=== PATIENT | male | born 1935 | race Caucasian/White ===

== ENCOUNTER 2021-01-04 09:20 | Inpatient (IN) | payer OTHER, MEDICARE, SELFPAY ==
[2021-01-04] VITALS (12 sets, daily range): BP systolic 110–144; BP diastolic 49–87; PULSE 72–105; RESP 16–25; TEMP 36.2–37; O2SAT 95–100; BMI 34.0
--- NOTE | ~2021-01-04 | XR_ITS ---
EXAMINATION: XR CHEST CLINICAL INFORMATION: AMS. Possible aspiration COMPARISON: Chest 07/05/2009 TECHNIQUE: Frontal view of the chest was obtained. FINDINGS: The lungs are are in moderate inspiration with no acute process seen. The heart size and pulmonary vascularity is normal. There is mild spondylosis dorsal spine. No lytic process seen. XR/XR chest 1V IMPRESSION: Lungs in moderate inspiration with no acute process seen. No major change compared to 07/05/2009
--- NOTE | ~2021-01-04 | MR_ITS ---
EXAMINATION: MR BRAIN WITHOUT AND WITH CONTRAST CLINICAL INFORMATION: New onset seizure. COMPARISON: CT head from 01/04/2021. TECHNIQUE: MRI of the brain was obtained using routine sequences without and following the administration of 10 mL of Gadavist intravenous contrast. FINDINGS: No focal restricted diffusion is demonstrated to suggest acute or subacute cerebral ischemia. No evidence of acute or chronic hemorrhagic products on heme-sensitive imaging. Basal ganglia mineralization. Scattered periventricular and deep white matter T2 FLAIR hyperintensities consistent with mild to moderate underlying microangiopathy. No additional parenchymal signal abnormalities. Proportional prominence of the ventricles and sulcal spaces without evidence of obstructive hydrocephalus. No abnormal mass effect. No midline shift. The hippocampi are symmetric in size, contour, and signal intensity. The temporal horns appear symmetric. Normal appearance of the pituitary gland. Normal positioning of the cerebellar tonsils. Normal arterial and venous vascular flow voids are present. No abnormal contrast enhancement. Normal, homogeneous marrow signal. Mild mucosal thickening of the paranasal sinuses. No signal abnormalities within the mastoids. MR/MR head/brain wo/w con IMPRESSION: 1. No acute intracranial abnormalities. No abnormal intracranial enhancement. 2. Mild to moderate underlying microangiopathy and generalized cerebral volume loss.
--- NOTE | ~2021-01-04 | CT_ITS ---
EXAMINATION: CT HEAD WITHOUT CONTRAST CLINICAL INFORMATION: AMS. COMPARISON: None TECHNIQUE: Contiguous axial imaging was performed from the skull base to vertex without intravenous administration of contrast. This CT examination was performed using dose optimization techniques as appropriate, variously including the following: *Automated exposure control *Adjustment of mA and/or kV according to patient size (this includes techniques or standardized protocols for targeted exams where dose is matched to indication/reason for exam; i.e. extremities or head) *Use of iterative reconstruction technique DLP: 821 mGy-cm FINDINGS: There is no evidence of acute intracranial hemorrhage or territorial infarction. No abnormal mass effect or midline shift is seen. Veronica to white matter differentiation is well preserved. No extra-axial fluid collections are identified. The lateral ventricles are slightly asymmetrical but enlarged. Mild prominence of cortical sulci seen. The osseous structures and soft tissues are normal. There is mild mucoperiosteal thickening involving bilateral ethmoid sinuses. Rest of the paranasal sinuses and mastoid air cells are unremarkable. CT/CT head/brain wo con IMPRESSION: No acute intracranial process seen. Age-related cerebral volume loss. Mild bilateral ethmoid sinus inflammatory changes noted Results were discussed with Dr. Julissa Castillo in ED at 9:53 AM
--- NOTE | ~2021-01-04 | US_ITS ---
EXAMINATION: US RETROPERITONEAL LIMITED (RENAL ONLY) CLINICAL INFORMATION: Urinary retention.. COMPARISON: None TECHNIQUE: Sonographic evaluation of the kidneys. FINDINGS: RIGHT KIDNEY: 11.6 x 6.1 x 6.1 cm (SAG x AP x TRV). The kidney is normal in size, contour, and echogenicity. Renal cortical thickness is normal. No calculi. No hydronephrosis. There are midpole simple renal cysts present. The largest measures 2.2 cm. The smaller adjacent cyst measures 1 cm. LEFT KIDNEY: 11.6 x 6 x 5.2 cm (SAG x AP x TRV). The kidney is normal in size, contour, and echogenicity. Renal cortical thickness is normal. No hydronephrosis. There is a lower pole 1 cm simple cyst. There is a midpole nonobstructing calculus measuring 0.3 cm. At the upper pole there is a hyperechoic lesion in the cortex measuring 0.9 x 0.7 x 1.1 cm. US/US renal BI IMPRESSION: No hydronephrosis. Small nonobstructing left renal calculus. Bilateral simple renal cysts. Hyperechoic lesion in the left kidney measuring up to 1.1 cm, likely an angiomyolipoma.
[2021-01-04] MEDS: LORazepam 2 MG/ML VIAL IVPUSH ×2 (09:25)
--- NOTE | 2021-01-04 09:50 | ECG_ITS ---
Test Reason : AMS Blood Pressure : / mmHG Vent. Rate : 083 BPM Atrial Rate : 060 BPM P-R Int : 000 ms QRS Dur : 086 ms QT Int : 390 ms P-R-T Axes : 000 -01 -02 degrees QTc Int : 458 ms Atrial fibrillation with premature ventricular or aberrantly conducted complexes Nonspecific ST abnormality Abnormal ECG When compared with ECG of 26-SEP-2002 09:29, Atrial fibrillation has replaced Sinus rhythm QT has lengthened Referred By: Julissa Lui Electronically Signed By:KARLENE PERAZA
--- NOTE | 2021-01-04 09:54 | PC.NURSE ---
pt brought immediately to ct scan upon ed arrival, medicated w total of 4mg iv ativan d/t combative behavior requiring multiple staff members to hold for safety. moved to room 4, placed on 2l nc d/t spo2 90% on ra s/p doctor of dental medicine. seen by provider. awaiting further orders.
[2021-01-04 10:16] LABS: MANUAL DIFF FLAG NO
[2021-01-04 10:22] LABS: Basophils Absolute Auto 0.1 X10*3/uL (0.0-0.2); Eosinophils Absolute Auto 0.9 X10*3/uL (0.0-0.4); Eosinophils Percent Auto 10.4 % (0-4); Hematocrit 37.8 % (42-52); Hemoglobin 12.7 g/dl (14.0-18.0); Imm Gran Abs Auto 0.03 X10*3/uL (0.00-0.03); Imm Gran Pct Auto 0.4 % (0.0-0.4); Lymphocytes Absolute Auto 1.6 X10*3/uL (1.2-4.9); Lymphocytes Percent Auto 19.5 % (20-40); Mean Corpuscular HGB Conc 33.6 g/dl (31.0-36.0); Mean Corpuscular Hemoglobin 32.1 pg (27.0-33.0); Mean Corpuscular Volume 95.5 fL (80-98); Mean Platelet Volume 9.6 fL (9.4-12.4); Monocytes Absolute Auto 0.4 X10*3/uL (0.1-1.2); Monocytes Percent Auto 5.1 % (2-11); Neutrophils Absolute Auto 5.3 X10*3/uL (2.0-8.3); Neutrophils Percent Auto 63.6 % (45-73); Platelet Count 180 X10*3/uL (160-400); Red Blood Count 3.96 X10*6/uL (4.60-5.80); White Blood Count 8.4 X10*3/uL (4.8-10.8)
[2021-01-04 10:23] LABS: INTERNATIONAL NORM RATIO 1.1 (0.9-1.1); Prothrombin Time 13.3 SEC (10.8-13.0)
[2021-01-04 10:36] LABS: Ethanol < 10 mg/dL; Lactic Acid 7.9 mmol/L (0.5-2.0)
[2021-01-04 10:37] LABS: Glucose Urine UA NEG (NEG); Leukocyte Esterase Urine 2+ (NEG); Nitrite Urine POS (NEG); Specific Gravity - Urine 1.025 (1.005-1.025); UACC Culture Trigger YES; Urine Blood 3+ (NEG); Urine Ketones NEG (NEG); Urine Protein 2+ MG/DL (NEG-TRACE)
[2021-01-04 10:40] LABS: Appearance Urine CLOUDY; Color Urine YELLOW
[2021-01-04 10:43] LABS: Alanine Aminotransferase 20 U/L (0-40); Albumin Level 3.8 g/dL (3.5-5.0); Alkaline Phosphatase 41 U/L (39-117); Anion Gap 20 (12-20); Aspartate Amino Transferase 25 U/L (5-37); Bilirubin Direct 0.3 mg/dL (0.0-0.5); Bilirubin Total 0.7 mg/dL (0.0-1.0); Blood Urea Nitrogen 14 mg/dL (9-16); Calcium 8.3 mg/dL (8.4-10.2); Carbon Dioxide 16 mmol/L (22-29); Chloride 103 mmol/L (96-108); Estimated Glomerular Filt Rate 56; Glucose Random 195 mg/dL (60-115); Potassium 4.6 mmol/L (3.3-5.1); Sodium 134 mmol/L (135-145); Total Protein 6.4 g/dL (6.5-8.0)
[2021-01-04 10:47] LABS: B Type Natriuretic Peptide 153 pg/mL (<100); Troponin-I High Sensitivity 5.3 ng/L (<3.5-35.0)
[2021-01-04 10:47] LABS: Bacteria Urine 1+ /LPF; WBC Urine TNTC /HPF (0-4)
[2021-01-04 10:56] LABS: Amphetamine Screen Urine Not Detected (Not Detect); Barbiturates, Urine Not Detected (Not Detect); Benzodiazepines Screen Urine Not Detected (Not Detect); Cannabinoid Screen Urine Not Detected (Not Detect); Cocaine Screen Urine Not Detected (Not Detect); Opiate Screen Urine Not Detected (Not Detect); Phencyclidine Screen Urine Not Detected (Not Detect)
--- NOTE | 2021-01-04 10:57 | ED.AMS ---
HPI - Altered Mental Status General Chief Complaint: Seizure Stated Complaint: UNRESPONSIVE, LAST KNOWN WELL 0800 Time Seen by Provider: 01/04/21 09:31 Source: EMS Mode of arrival: EMS Limitations: altered mental status History of Present Illness HPI narrative: Patient is brought to the emergency room by EMS. According to the patient's , around 8 a.m. they woke up, the patient was standing in front of his bed, looked very confused. The patient's was able to help him walk and have him sit on the couch. At that time, the patient received a phone call from his son, the patient was unable to speak on the phone, he was too confused to even hold the phone. The patient's states that the patient did not have any stroke-like symptoms, he seemed confused. Shortly after, while the patient was sitting the patient started having tonic clonic movements of all extremities and foaming at the mouth. EMS was called. On arrival, all of the patient's vitals were stable, patient was unresponsive. When patient arrived to the emergency room, patient was very combative, trying to punch and kick people, confused, unable to follow any commands. Related Data Allergies Allergy/AdvReac Type Severity Reaction Status Date / Time No Known Allergies Allergy Verified 01/04/21 09:31 Review of Systems Review of Systems: Yes Unobtainable due to mental condition PMFSH Past Medical History Medical History (Updated 01/04/21 @ 11:12 by Julissa Lui MD) Afib Hypertension Social History Social History Advance Directives: No Advance Directives Information Provided: No Physical Exam Vital Signs: Vital Signs: Last Vital Signs Temp 98.4 F 01/04/21 09:41 Pulse 87 01/04/21 11:13 Resp 25 H 01/04/21 11:13 BP 114/56 L 01/04/21 11:13 Pulse Ox 95 01/04/21 11:13 Body Mass Index 34.0 Appearance: Alert, very combative, confused, seems postictal Eyes: Pupils equal, round and reactive to light. ENT: Patient has bite staples to the inner part of the left cheek and bite staples to the tongue as well Neck: Normal inspection. Neck supple. No lymph nodes noted. No crepitus CVS: Normal heart rate and rhythm. Pulses normal. Normal S1 and S2 Respiratory: No respiratory distress. Breath sounds normal. No Wheezing. No rales Abdomen: Soft and nontender. No rigidity. No distention. : Patient was straight cath, urine looks cloudy. Patient was incontinent of urine on arrival Skin: Skin warm and dry. Normal skin color. Normal skin turgor. Extremities: Moving all extremities, trying to punch and kick staff Neuro: Patient very confused, likely postictal, cranial nerves 2-12 grossly intact Course Course Course Narrative: Patient needed as CT scan on arrival, therefore he was given 2 mg of Ativan, had no effect. Patient was given an additional 2 mg of IV Ativan. Patient was able to calm down and fell asleep, CT scan was done. Spoke with the patient's family, informed of the patient's current status. Patient likely had a seizure, patient does not have history of seizures. At this time, patient remains sleeping, vital stable Patient's lactic acid is 7.9, likely secondary to the seizure. Patient has no fever, no white blood cell count, sepsis is not suspected at this time. 11:10 urinalysis shows a positive UTI, patient already being hydrated, IV ceftriaxone ordered. Fluids were given based on ideal body weight 59 kg, sepsis not suspected I discussed the patient with Dr. Jeong, patient being admitted MDM - Altered Mental Status Lab Data Result diagrams: 01/04/21 10:11 01/04/21 10:11 Labs: Lab Results 01/04/21 01/04/21 01/04/21 Range/Units 10:11 10:11 10:11 WBC 8.4 (4.8-10.8) X10*3/uL RBC 3.96 L (4.60-5.80) X10*6/uL Hgb 12.7 L (14.0-18.0) g/dl Hct 37.8 L (42-52) % MCV 95.5 (80-98) fL MCH 32.1 (27.0-33.0) pg MCHC 33.6 (31.0-36.0) g/dl RDW 13.0 (11.0-16.0) % Plt Count 180 (160-400) X10*3/uL MPV 9.6 (9.4-12.4) fL Immature Gran % (Auto) 0.4 (0.0-0.4) % Neut % (Auto) 63.6 (45-73) % Lymph % (Auto) 19.5 L (20-40) % [place] % (Auto) 5.1 (2-11) % Eos % (Auto) 10.4 H (0-4) % Baso % (Auto) 1.0 (0-2) % Lymph # (Auto) 1.6 (1.2-4.9) X10*3/uL [place] # (Auto) 0.4 (0.1-1.2) X10*3/uL Eos # (Auto) 0.9 H (0.0-0.4) X10*3/uL Baso # (Auto) 0.1 (0.0-0.2) X10*3/uL Abs Immat Gran (auto) 0.03 (0.00-0.03) X10*3/uL Absolute Neuts (auto) 5.3 (2.0-8.3) X10*3/uL Absolute Nucleated RBC 0.000 (0.0-0.012) X10*3/uL Nucleated RBC % (auto) 0.0 (0.0-0.2) /100WBC PT 13.3 H (10.8-13.0) SEC INR 1.1 (0.9-1.1) Sodium 134 L (135-145) mmol/L Potassium 4.6 (3.3-5.1) mmol/L Chloride 103 (96-108) mmol/L Carbon Dioxide 16 L (22-29) mmol/L Anion Gap 20 (12-20) BUN 14 (9-16) mg/dL Creatinine 1.23 (0.5-1.4) mg/dL Estim Creat Clear Calc 46.0 Estimated GFR 56 Random Glucose 195 H (60-115) mg/dL Lactic Acid (0.5-2.0) mmol/L Calcium 8.3 L (8.4-10.2) mg/dL Total Bilirubin 0.7 (0.0-1.0) mg/dL Direct Bilirubin 0.3 (0.0-0.5) mg/dL AST 25 (5-37) U/L ALT 20 (0-40) U/L Alkaline Phosphatase 41 (39-117) U/L Troponin I High Sens (<3.5-35.0) ng/L B-Natriuretic Peptide (<100) pg/mL Total Protein 6.4 L (6.5-8.0) g/dL Albumin 3.8 (3.5-5.0) g/dL Urine Color Urine Appearance Urine pH (5.0-8.0) Ur Specific [place] (1.005-1.025) Urine Protein (NEG-TRACE) MG/DL Urine Glucose (UA) (NEG) MG/DL Urine Ketones (NEG) MG/DL Urine Blood (NEG) Urine Nitrite (NEG) Ur Leukocyte Esterase (NEG) Urine RBC (0) /HPF Urine WBC (0-4) /HPF Ur Squamous Epith Cells /LPF Urine Bacteria /LPF Urine Opiates Screen (Not Detect) Ur Barbiturates Screen (Not Detect) Ur Phencyclidine Scrn (Not Detect) Ur Amphetamines Screen (Not Detect) U Benzodiazepines Scrn (Not Detect) Urine Cocaine Screen (Not Detect) U Marijuana (THC) Screen (Not Detect) Ethyl Alcohol mg/dL 01/04/21 01/04/21 01/04/21 Range/Units 10:11 10:11 10:11 WBC (4.8-10.8) X10*3/uL RBC (4.60-5.80) X10*6/uL Hgb (14.0-18.0) g/dl Hct (42-52) % MCV (80-98) fL MCH (27.0-33.0) pg MCHC (31.0-36.0) g/dl RDW (11.0-16.0) % Plt Count (160-400) X10*3/uL MPV (9.4-12.4) fL Immature Gran % (Auto) (0.0-0.4) % Neut % (Auto) (45-73) % Lymph % (Auto) (20-40) % [place] % (Auto) (2-11) % Eos % (Auto) (0-4) % Baso % (Auto) (0-2) % Lymph # (Auto) (1.2-4.9) X10*3/uL [place] # (Auto) (0.1-1.2) X10*3/uL Eos # (Auto) (0.0-0.4) X10*3/uL Baso # (Auto) (0.0-0.2) X10*3/uL Abs Immat Gran (auto) (0.00-0.03) X10*3/uL Absolute Neuts (auto) (2.0-8.3) X10*3/uL Absolute Nucleated RBC (0.0-0.012) X10*3/uL Nucleated RBC % (auto) (0.0-0.2) /100WBC PT (10.8-13.0) SEC INR (0.9-1.1) Sodium (135-145) mmol/L Potassium (3.3-5.1) mmol/L Chloride (96-108) mmol/L Carbon Dioxide (22-29) mmol/L Anion Gap (12-20) BUN (9-16) mg/dL Creatinine (0.5-1.4) mg/dL Estim Creat Clear Calc Estimated GFR Random Glucose (60-115) mg/dL Lactic Acid 7.9 H* (0.5-2.0) mmol/L Calcium (8.4-10.2) mg/dL Total Bilirubin (0.0-1.0) mg/dL Direct Bilirubin (0.0-0.5) mg/dL AST (5-37) U/L ALT (0-40) U/L Alkaline Phosphatase (39-117) U/L Troponin I High Sens 5.3 (<3.5-35.0) ng/L B-Natriuretic Peptide 153 H (<100) pg/mL Total Protein (6.5-8.0) g/dL Albumin (3.5-5.0) g/dL Urine Color Urine Appearance Urine pH (5.0-8.0) Ur Specific [place] (1.005-1.025) Urine Protein (NEG-TRACE) MG/DL Urine Glucose (UA) (NEG) MG/DL Urine Ketones (NEG) MG/DL Urine Blood (NEG) Urine Nitrite (NEG) Ur Leukocyte Esterase (NEG) Urine RBC (0) /HPF Urine WBC (0-4) /HPF Ur Squamous Epith Cells /LPF Urine Bacteria /LPF Urine Opiates Screen (Not Detect) Ur Barbiturates Screen (Not Detect) Ur Phencyclidine Scrn (Not Detect) Ur Amphetamines Screen (Not Detect) U Benzodiazepines Scrn (Not Detect) Urine Cocaine Screen (Not Detect) U Marijuana (THC) Screen (Not Detect) Ethyl Alcohol < 10 mg/dL 01/04/21 01/04/21 Range/Units 10:11 10:18 WBC (4.8-10.8) X10*3/uL RBC (4.60-5.80) X10*6/uL Hgb (14.0-18.0) g/dl Hct (42-52) % MCV (80-98) fL MCH (27.0-33.0) pg MCHC (31.0-36.0) g/dl RDW (11.0-16.0) % Plt Count (160-400) X10*3/uL MPV (9.4-12.4) fL Immature Gran % (Auto) (0.0-0.4) % Neut % (Auto) (45-73) % Lymph % (Auto) (20-40) % [place] % (Auto) (2-11) % Eos % (Auto) (0-4) % Baso % (Auto) (0-2) % Lymph # (Auto) (1.2-4.9) X10*3/uL [place] # (Auto) (0.1-1.2) X10*3/uL Eos # (Auto) (0.0-0.4) X10*3/uL Baso # (Auto) (0.0-0.2) X10*3/uL Abs Immat Gran (auto) (0.00-0.03) X10*3/uL Absolute Neuts (auto) (2.0-8.3) X10*3/uL Absolute Nucleated RBC (0.0-0.012) X10*3/uL Nucleated RBC % (auto) (0.0-0.2) /100WBC PT (10.8-13.0) SEC INR (0.9-1.1) Sodium (135-145) mmol/L Potassium (3.3-5.1) mmol/L Chloride (96-108) mmol/L Carbon Dioxide (22-29) mmol/L Anion Gap (12-20) BUN (9-16) mg/dL Creatinine (0.5-1.4) mg/dL Estim Creat Clear Calc Estimated GFR Random Glucose (60-115) mg/dL Lactic Acid (0.5-2.0) mmol/L Calcium (8.4-10.2) mg/dL Total Bilirubin (0.0-1.0) mg/dL Direct Bilirubin (0.0-0.5) mg/dL AST (5-37) U/L ALT (0-40) U/L Alkaline Phosphatase (39-117) U/L Troponin I High Sens (<3.5-35.0) ng/L B-Natriuretic Peptide (<100) pg/mL Total Protein (6.5-8.0) g/dL Albumin (3.5-5.0) g/dL Urine Color YELLOW Urine Appearance CLOUDY Urine pH 6.0 (5.0-8.0) Ur Specific [place] 1.025 (1.005-1.025) Urine Protein 2+ H (NEG-TRACE) MG/DL Urine Glucose (UA) NEG (NEG) MG/DL Urine Ketones NEG (NEG) MG/DL Urine Blood 3+ H (NEG) Urine Nitrite POS H (NEG) Ur Leukocyte Esterase 2+ H (NEG) Urine RBC 15-29 H (0) /HPF Urine WBC TNTC H (0-4) /HPF Ur Squamous Epith Cells NONE /LPF Urine Bacteria 1+ /LPF Urine Opiates Screen Not Detected (Not Detect) Ur Barbiturates Screen Not Detected (Not Detect) Ur Phencyclidine Scrn Not Detected (Not Detect) Ur Amphetamines Screen Not Detected (Not Detect) U Benzodiazepines Scrn Not Detected (Not Detect) Urine Cocaine Screen Not Detected (Not Detect) U Marijuana (THC) Screen Not Detected (Not Detect) Ethyl Alcohol mg/dL ECG Data ECG #1: Attestation: I personally reviewed and interpreted this ECG as follows: (Atrial fibrillation, heart rate 83, nonspecific T-wave inversions in lead III, nonspecific ST abnormality in leads V2 through V6, poor quality EKG) Discharge Plan Discharge Clinical Impression: New onset seizure, Acute UTI Patient Disposition: Admitted As Inpatient
[2021-01-04] MEDS: cefTRIAXone sodium 1 GM in 0.9 % Sodium Chloride 50 ML IV (11:16)
[2021-01-04] MEDS: 0.9 % Sodium Chloride 1,000 ML 999 ML IVCONT ×2 (11:17→12:00)
[2021-01-04 12:14] LABS: Reflex Lactate? Lactic Acid Added
[2021-01-04 12:35] LABS: COVID-19 Test Negative (Negative)
--- NOTE | 2021-01-04 12:48 | PC.NURSE ---
family in waiting room updated, will return w pt cpap machine and personal belongings. repeat lactic drawn and sent. seen by hospitalist. awaiting bed assignment.
[2021-01-04 13:21] LABS: ~Lactic Acid-LAB USE ONLY 2.7 mmol/L (0.5-2.0)
--- NOTE | 2021-01-04 13:59 | P.HPHOSP_ITS ---
History of Present Illness Date of Service: 01/04/21 Chief Complaint: seizure confusion H/o taken from ER physician and patient as patient very sleep and lethargic Per patient patient was in his usual health till yesterday evening, patient woke up this morning around 08:00am and was very confused and standing was staring at her , patient's tried to talk to him but was not responding, made him sit on the chair patient started having tonic colonic seizure, per patient was moving all his extremities and noticed frothing from mouth, called 911, patient's seizure activity stays for few minutes, patient was brought to emergency room, patient was very confused and agitated after the seizure, patient received total 4 mg of Ativanin er , no more seizure activity was noticed in the ER, CT head shows no acute abnormality, labs shows elevated lactic acidosis and UA was positive, patient received 1 dose of Rocephin and admission was requested denies any fever chills or sick contact, denies any history of seizure in the past Of note patient has urinary retention and does straight cath once a week Review of Systems Review of Systems: Yes Unobtainable due to mental status Neurologic: Reports confusion Psychiatric: Psychiatric: Reports confusion [facility] Medical History Afib Hypertension Family History (Updated 01/04/21 @ 15:29 by Michael Jeong MD) Other HTN (hypertension) Surgical History (Updated 01/04/21 @ 15:31 by Michael Jeong MD) H/O hand surgery Social History Advance Directives: No Advance Directives Information Provided: No Meds Allergies Allergy/AdvReac Type Severity Reaction Status Date / Time No Known Allergies Allergy Verified 01/04/21 09:31 Active Medications: Current Medications Generic Name Dose Route Start Last Admin Trade Name Freq PRN Reason Stop Dose Admin Pharmacy Consult 1 each 01/04/21 11:09 Consult Rx Perform Med Rec MISCELLANE ONCE PRN Consult order Home Medications Medication Instructions Recorded Confirmed Last Taken Type Daily Vitamin 1 cap PO DAILY 01/04/21 01/04/21 01/03/21 History Move [facility] Joint Health 1 tab PO DAILY 01/04/21 01/04/21 01/03/21 History Zyrtec 5 mg PO DAILY 01/04/21 01/04/21 01/03/21 History allopurinol [Zyloprim] 300 mg PO DAILY 01/04/21 01/04/21 01/03/21 History apixaban [Eliquis] 5 mg PO BID 01/04/21 01/04/21 01/03/21 History ascorbic acid (vitamin C) [Vitamin 1 cap PO DAILY 01/04/21 01/04/21 01/03/21 History C] carboxymethylcellulose-glycern 1 drp OPHTHALMIC (EYE) QID 01/04/21 01/04/21 01/03/21 History [Lubricating Drops] flaxseed 1,000 mg PO DAILY 01/04/21 01/04/21 01/03/21 History furosemide [Lasix] 20 mg PO DAILY 01/04/21 01/04/21 01/03/21 History metoprolol succinate [Toprol XL] 100 mg PO DAILY 01/04/21 01/04/21 01/03/21 History valsartan 160 mg PO BID 01/04/21 01/04/21 01/03/21 History Physical Exam Vital Signs and Narrative: Vital Signs: Last Vital Signs Temp 98.4 F 01/04/21 09:41 Pulse 84 01/04/21 13:03 Resp 20 01/04/21 13:03 BP 120/55 L 01/04/21 13:03 Pulse Ox 100 01/04/21 13:03 Body Mass Index 34.0 Const: General: confusion and lethargic Orientation/consciousness: confusion and lethargic Chest: Chest palpation & inspection: normal inspection of the chest Resp: Effort & Inspection: normal respiratory effort Cardio: Jugular venous distension: no JVD Heart sounds: S1 normal heart sound present and S2 normal heart sound present GI: Inspection: Yes normal to inspection Palpation (GI): nontender Skin: General skin exam: no rashes or lesions noted Neuro: General: confusion and other (lethargic) Motor exam (neuro): 5/5 motor strength present throughout Results Labs CBC and Chem 7: 01/04/21 10:11 01/04/21 10:11 Labs: Laboratory Results - last 24 hr 01/04/21 01/04/21 01/04/21 10:11 10:11 10:11 MCV 95.5 MCH 32.1 MCHC 33.6 RDW 13.0 Plt Count 180 MPV 9.6 Immature Gran % (Auto) 0.4 Neut % (Auto) 63.6 Lymph % (Auto) 19.5 L [place] % (Auto) 5.1 Eos % (Auto) 10.4 H Baso % (Auto) 1.0 Lymph # (Auto) 1.6 [place] # (Auto) 0.4 Eos # (Auto) 0.9 H Baso # (Auto) 0.1 Abs Immat Gran (auto) 0.03 Absolute Neuts (auto) 5.3 Absolute Nucleated RBC 0.000 Nucleated RBC % (auto) 0.0 PT 13.3 H INR 1.1 Anion Gap 20 Estim Creat Clear Calc 46.0 Estimated GFR 56 Random Glucose 195 H Lactic Acid Lactic Acid Fup @ 2Hr Calcium 8.3 L Total Bilirubin 0.7 Direct Bilirubin 0.3 AST 25 ALT 20 Alkaline Phosphatase 41 Troponin I High Sens B-Natriuretic Peptide Total Protein 6.4 L Albumin 3.8 Urine Color Urine Appearance Urine pH Ur Specific [place] Urine Protein Urine Glucose (UA) Urine Ketones Urine Blood Urine Nitrite Ur Leukocyte Esterase Urine RBC Urine WBC Ur Squamous Epith Cells Urine Bacteria Urine Opiates Screen Ur Barbiturates Screen Ur Phencyclidine Scrn Ur Amphetamines Screen U Benzodiazepines Scrn Urine Cocaine Screen U Marijuana (THC) Screen Ethyl Alcohol COVID-19 (MERARI) COVID-19 Clin Com 01/04/21 01/04/21 01/04/21 10:11 10:11 10:11 MCV MCH MCHC RDW Plt Count MPV Immature Gran % (Auto) Neut % (Auto) Lymph % (Auto) [place] % (Auto) Eos % (Auto) Baso % (Auto) Lymph # (Auto) [place] # (Auto) Eos # (Auto) Baso # (Auto) Abs Immat Gran (auto) Absolute Neuts (auto) Absolute Nucleated RBC Nucleated RBC % (auto) PT INR Anion Gap Estim Creat Clear Calc Estimated GFR Random Glucose Lactic Acid 7.9 H* Lactic Acid Fup @ 2Hr Calcium Total Bilirubin Direct Bilirubin AST ALT Alkaline Phosphatase Troponin I High Sens 5.3 B-Natriuretic Peptide 153 H Total Protein Albumin Urine Color Urine Appearance Urine pH Ur Specific [place] Urine Protein Urine Glucose (UA) Urine Ketones Urine Blood Urine Nitrite Ur Leukocyte Esterase Urine RBC Urine WBC Ur Squamous Epith Cells Urine Bacteria Urine Opiates Screen Ur Barbiturates Screen Ur Phencyclidine Scrn Ur Amphetamines Screen U Benzodiazepines Scrn Urine Cocaine Screen U Marijuana (THC) Screen Ethyl Alcohol < 10 COVID-19 ([facility]ARI) COVID-19 [employer] Com 01/04/21 01/04/21 01/04/21 10:11 10:18 12:07 MCV MCH MCHC RDW Plt Count MPV Immature Gran % (Auto) Neut % (Auto) Lymph % (Auto) [place] % (Auto) Eos % (Auto) Baso % (Auto) Lymph # (Auto) [place] # (Auto) Eos # (Auto) Baso # (Auto) Abs Immat Gran (auto) Absolute Neuts (auto) Absolute Nucleated RBC Nucleated RBC % (auto) PT INR Anion Gap Estim Creat Clear Calc Estimated GFR Random Glucose Lactic Acid Lactic Acid Fup @ 2Hr Calcium Total Bilirubin Direct Bilirubin AST ALT Alkaline Phosphatase Troponin I High Sens B-Natriuretic Peptide Total Protein Albumin Urine Color YELLOW Urine Appearance CLOUDY Urine pH 6.0 Ur Specific [place] 1.025 Urine Protein 2+ H Urine Glucose (UA) NEG Urine Ketones NEG Urine Blood 3+ H Urine Nitrite POS H Ur Leukocyte Esterase 2+ H Urine RBC 15-29 H Urine WBC TNTC H Ur Squamous Epith Cells NONE Urine Bacteria 1+ Urine Opiates Screen Not Detected Ur Barbiturates Screen Not Detected Ur Phencyclidine Scrn Not Detected Ur Amphetamines Screen Not Detected U Benzodiazepines Scrn Not Detected Urine Cocaine Screen Not Detected U Marijuana (THC) Screen Not Detected Ethyl Alcohol COVID-19 (MERARI) Negative COVID-19 [employer] Com See Note 01/04/21 12:30 MCV MCH MCHC RDW Plt Count MPV Immature Gran % (Auto) Neut % (Auto) Lymph % (Auto) [place] % (Auto) Eos % (Auto) Baso % (Auto) Lymph # (Auto) [place] # (Auto) Eos # (Auto) Baso # (Auto) Abs Immat Gran (auto) Absolute Neuts (auto) Absolute Nucleated RBC Nucleated RBC % (auto) PT INR Anion Gap Estim Creat Clear Calc Estimated GFR Random Glucose Lactic Acid Lactic Acid Fup @ 2Hr 2.7 H* Calcium Total Bilirubin Direct Bilirubin AST ALT Alkaline Phosphatase Troponin I High Sens B-Natriuretic Peptide Total Protein Albumin Urine Color Urine Appearance Urine pH Ur Specific [place] Urine Protein Urine Glucose (UA) Urine Ketones Urine Blood Urine Nitrite Ur Leukocyte Esterase Urine RBC Urine WBC Ur Squamous Epith Cells Urine Bacteria Urine Opiates Screen Ur Barbiturates Screen Ur Phencyclidine Scrn Ur Amphetamines Screen U Benzodiazepines Scrn Urine Cocaine Screen U Marijuana (THC) Screen Ethyl Alcohol COVID-19 ([facility]ARI) COVID-19 Clin Com Imaging Radiologist's Impressions: Impressions Head CT 01/04/21 09:31 IMPRESSION: No acute intracranial process seen. Age-related cerebral volume loss. Mild bilateral ethmoid sinus inflammatory changes noted Results were discussed with Dr. Julissa Castillo in ED at 9:53 AM Chest X-Ray 01/04/21 09:50 IMPRESSION: Lungs in moderate inspiration with no acute process seen. No major change compared to 07/05/2009 Assessment and Plan (1) New onset seizure: Status: Acute (2) Acute UTI: Status: Acute 85-year-old male presented with new onset of seizure and found to have UTI admitted for further management New onset of seizure likely secondary to UTI CT head on admission shows no acute abnormality Received Ativan currently very sedated Seizure precaution Monitor on telemetry Aspiration precaution Will get neurology evaluation UTI Continue Rocephin Follow-up cultures Does straight cath once a week Monitor for urinary retention Atrial fibrillation Continue Lopressor and Eliquis Hypertension Continue Lopressor and losartan Toxic metabolic encephalopathy likely secondary to seizure and UTI Monitor mental status Treat underlying condition Sleep apnea Continue CPAP at night and as needed during day DVT prophylaxis on Eliquis Full code
[2021-01-04 14:33] LABS: Reflex Lactate? 2 Y
--- NOTE | 2021-01-04 14:43 | PC.NURSE ---
pt easily arousable to voice, able to participate in conversation, a+0x3, speaking in full clear sentences. offers no complaints. educated about plan of care. personal effects at bedside. wctm.
[2021-01-04] MEDS: Sodium Chloride 0.45 % 1,000 ML 100 ML IVCONT (15:52)
[2021-01-04 15:53] LABS: ABG Base Excess -5.6 mmol/L; ABG HCO3 17 mmol/L (22-26); ABG pCO2 28 mmHg (32-45); ABG pH 7.39 (7.35-7.45); ABG pO2 144 mmHg (83-108)
[2021-01-04 15:55] LABS: ABG Refer to POC result
[2021-01-04 16:26] LABS: ~Lactic Acid-LAB USE ONLY 1.8 mmol/L (0.5-2.0)
[2021-01-04] MEDS: 0.9 % Sodium Chloride 1,000 ML 100 ML IVCONT (17:14)
[2021-01-04] MEDS: 0.9 % Sodium Chloride Flush 3 ML SYRINGE IVFLUSH (17:14)
[2021-01-04] MEDS: Apixaban 5 MG TABLET PO (20:21)
[2021-01-04] MEDS: Valsartan 160 MG TABLET PO (20:21)
[2021-01-05] VITALS (9 sets, daily range): BP systolic 136–168; BP diastolic 68–84; PULSE 72–84; RESP 18–20; TEMP 36.6–37.4; O2SAT 96–98
[2021-01-05] MEDS: 0.9 % Sodium Chloride 1,000 ML 100 ML IVCONT ×2 (02:23→11:18)
[2021-01-05 05:32] LABS: MANUAL DIFF FLAG NO
[2021-01-05 05:49] LABS: Basophils Absolute Auto 0.1 X10*3/uL (0.0-0.2); Basophils Percent Auto 0.9 % (0-2); Eosinophils Absolute Auto 0.7 X10*3/uL (0.0-0.4); Eosinophils Percent Auto 10.1 % (0-4); Hematocrit 32.3 % (42-52); Hemoglobin 11.2 g/dl (14.0-18.0); Imm Gran Abs Auto 0.02 X10*3/uL (0.00-0.03); Imm Gran Pct Auto 0.3 % (0.0-0.4); Lymphocytes Absolute Auto 1.6 X10*3/uL (1.2-4.9); Lymphocytes Percent Auto 23.5 % (20-40); Mean Corpuscular HGB Conc 34.7 g/dl (31.0-36.0); Mean Corpuscular Hemoglobin 32.5 pg (27.0-33.0); Mean Corpuscular Volume 93.6 fL (80-98); Mean Platelet Volume 9.8 fL (9.4-12.4); Monocytes Absolute Auto 0.6 X10*3/uL (0.1-1.2); Monocytes Percent Auto 8.6 % (2-11); Neutrophils Absolute Auto 3.8 X10*3/uL (2.0-8.3); Neutrophils Percent Auto 56.6 % (45-73); Platelet Count 148 X10*3/uL (160-400); Red Blood Count 3.45 X10*6/uL (4.60-5.80); Red Cell Distribution Width 13.1 % (11.0-16.0); White Blood Count 6.8 X10*3/uL (4.8-10.8)
[2021-01-05 06:08] LABS: Blood Urea Nitrogen 13 mg/dL (9-16); Calcium 7.8 mg/dL (8.4-10.2); Creatinine Clr Calc Pharmacy 69.9; Estimated Glomerular Filt Rate > 60; Glucose Random 126 mg/dL (60-115)
[2021-01-05 06:19] LABS: Anion Gap 13 (12-20); Carbon Dioxide 19 mmol/L (22-29); Chloride 109 mmol/L (96-108); Sodium 137 mmol/L (135-145)
[2021-01-05] MEDS: 0.9 % Sodium Chloride Flush 3 ML SYRINGE IVFLUSH ×3 (08:12→20:17)
[2021-01-05] MEDS: Multivitamin TABLET 1 TAB PO (08:13)
[2021-01-05] MEDS: Apixaban 5 MG TABLET PO ×2 (08:13→20:16)
[2021-01-05] MEDS: Valsartan 160 MG TABLET PO ×2 (08:13→20:16)
[2021-01-05] MEDS: allopurinoL 300 MG TABLET PO (08:13)
[2021-01-05] MEDS: Metoprolol Succinate ER 100 MG TAB.ER.24H PO (08:13)
[2021-01-05] MEDS: cefTRIAXone sodium 1 GM in 0.9 % Sodium Chloride 50 ML IV (11:14)
--- NOTE | 2021-01-05 11:20 | P.PNIM_ITS ---
Subjective Subjective Date of Service: 01/05/21 Interval History: seen and examined this AM lucid. denies any complaints does not recall events surrounding the seizures he reports he drinks occasionally. d/w this -- she reports he drinks a gin + tonic and a beer daily, his last drink was Wednesday (day before the seizure events). ROS General - no fevers or chills Cardiovascular - no chest pain Respiratory - no shortness of breath or cough Abdominal- no abdominal pain, nausea, vomiting, diarrhea Physical Exam Vital Signs: Vital Signs: Last Vital Signs Temp 97.9 F 01/05/21 07:14 Pulse 77 01/05/21 08:13 Resp 20 01/05/21 07:14 BP 143/84 H 01/05/21 08:13 Pulse Ox 96 01/05/21 07:14 Body Mass Index 34.0 Const: Other: General - no acute distress, appears comfortable Cardiovascular - regular rate and rhythm, S1-S2 Lungs - normal respiratory effort, clear to auscultation bilaterally, no wheezing Abdomen - soft, non-tender, no rebound or guarding Extremities - no edema bilaterally Neuro - awake and alert, no focal deficits - bal in place Objective Data Current Medications Generic Name Dose Route Start Last Admin Trade Name Freq PRN Reason Stop Dose Admin Allopurinol 300 mg 01/05/21 09:00 01/05/21 08:13 Allopurinol 300 Mg Tablet PO 300 mg DAILY [facility] Administration Apixaban 5 mg 01/04/21 21:00 01/05/21 08:13 Apixaban 5 Mg Tablet PO 5 mg BID [facility]HEL Administration Ceftriaxone Sodium 1 gm/ 50 mls @ 100 mls/hr 01/05/21 11:00 01/05/21 11:14 Sodium Chloride IV 100 mls/hr Q24H [facility]HEL Administration Sodium Chloride 1,000 mls @ 100 mls/hr 01/04/21 16:38 01/05/21 11:18 Ns IVCONT 100 mls/hr .Q10H MICHEL Administration Metoprolol Succinate 100 mg 01/05/21 09:00 01/05/21 08:13 Metoprolol Succinate Er 100 Mg Tab.Er.24h PO 100 mg DAILY [facility] Administration Protocol Multivitamins/Vitamin C 1 tab 01/05/21 09:00 01/05/21 08:13 Multivitamin Tablet PO 1 tab DAILY [facility] Administration Non-Formulary Medication 1 drop 03/06/21 17:00 Carboxymethylcellulose-Glycern [Lubricating Drops] EYE-BOTH QID [facility] Pharmacy Consult 1 each 01/04/21 11:09 Consult Rx Perform Med Rec MISCELLANE ONCE PRN Consult order Sodium Chloride 3 ml 01/04/21 16:38 01/05/21 08:12 0.9 % Sodium Chloride Flush 3 Ml Syringe IVFLUSH 3 ml QSHIFT [facility] Administration Valsartan 160 mg 01/04/21 21:00 01/05/21 08:13 Valsartan 160 Mg Tablet PO 160 mg BID MICHEL Administration Labs CBC & Chem 7: 01/05/21 05:14 01/05/21 05:14 Microbiology Microbiology Results: Microbiology 01/04/21 Unknown Urine Catheterized - Straight Catheter Urine Culture - Preliminary Gram negative lavonne Assessment and Plan (1) New onset seizure: Status: Acute (2) Acute UTI: Status: Acute Assessment and Plan: 85-year-old male who presented to the hospital after his noted him having t onic clonic movements with frothing at the mouth, suspect seizure. 1. New onset seizure Patient's endorses that the patient drinks daily, 2 drinks. Last drink was the day before his seizures. Doubt this as the cause. ? related to acute infection. no further episodes await neurology input prior to further work up 2. Complicated UTI urine growing GNB rocephin f/u final C&S 3. Toxic/Metabolic Encephalopathy due to above 2 conditions now appears to be at baseline 4. A. Fib continue metoprolol, continue eliquis 5. Urinary retention chronic patient straight cath's himself at home d/c bal prior to discharge 6. SWATHI cpap at night Full Code DVT prophylaxis - Eliquis
--- NOTE | 2021-01-05 11:48 | PM.NEUROCN ---
History of Present Illness Data of Consult Service Date: 01/05/21 Primary Care Provider: Luna Dailey NP 85 years old man with past medical history of hypertension and atrial fibrillation but no history of seizure disorder who was brought to hospital after what looked like a seizure. He had no recollection of what happened stating that he passed out at home and woke up in the hospital. Apparently he woke up and was noted to be confused and staring and then at 1 point started having generalized convulsion with frothing and was brought to emergency room. When I interviewed him, he denied any problems. Review of Systems Review of Systems: No recent cold or flu-like illness headache trauma exposure to new medicine and he denied any significant alcohol use. [facility] Past Medical History Medical History Afib Hypertension Family History Family History (Updated 01/04/21 @ 15:29 by Michael Jeong MD) Other HTN (hypertension) Surgical History Surgical History (Updated 01/04/21 @ 15:31 by Michael Jeong MD) H/O hand surgery Social History Social History Household Members: Spouse Housing: House Do you presently have visiting nurse or other home services: No Smoking Status: Never smoker Second Hand Smoke Exposure: No Use of substances other than those prescribed or required for medical reasons: No Currently Displaying Signs/Symptoms of Drug Intoxication Withdrawal: No Have you been hit, kicked, punched, or otherwise hurt by someone within the past year? If so, by whom?: No Do you feel safe in your current relationship?: Yes Is there a partner from a previous relationship who is making you feel unsafe now?: No Are you made to feel afraid or neglected: No Advance Directives: No Advance Directives Information Provided: No Do you have thoughts of harming others: None Do you have a plan to hurt others: No Plan Recently lost weight without trying: No Meds Allergies Allergy/AdvReac Type Severity Reaction Status Date / Time No Known Allergies Allergy Verified 01/04/21 09:31 Active Medications: Current Medications Generic Name Dose Route Start Last Admin Trade Name Freq PRN Reason Stop Dose Admin Allopurinol 300 mg 01/05/21 09:00 01/05/21 08:13 Allopurinol 300 Mg Tablet PO 300 mg DAILY [facility] Administration Apixaban 5 mg 01/04/21 21:00 01/05/21 08:13 Apixaban 5 Mg Tablet PO 5 mg BID [facility] Administration Ceftriaxone Sodium 1 gm/ 50 mls @ 100 mls/hr 01/05/21 11:00 01/05/21 11:14 Sodium Chloride IV 100 mls/hr Q24H [facility] Administration Metoprolol Succinate 100 mg 01/05/21 09:00 01/05/21 08:13 Metoprolol Succinate Er 100 Mg Tab.Er.24h PO 100 mg DAILY [facility] Administration Protocol Multivitamins/Vitamin C 1 tab 01/05/21 09:00 01/05/21 08:13 Multivitamin Tablet PO 1 tab DAILY [facility] Administration Non-Formulary Medication 1 drop 01/04/21 17:00 Carboxymethylcellulose-Glycern [Lubricating Drops] EYE-BOTH QID [facility] Pharmacy Consult 1 each 01/04/21 11:09 Consult Rx Perform Med Rec MISCELLANE ONCE PRN Consult order Sodium Chloride 3 ml 01/04/21 16:38 01/05/21 08:12 0.9 % Sodium Chloride Flush 3 Ml Syringe IVFLUSH 3 ml QSHIFT [facility] Administration Valsartan 160 mg 01/04/21 21:00 01/05/21 08:13 Valsartan 160 Mg Tablet PO 160 mg BID [facility] Administration Home Medications Medication Instructions Recorded Confirmed Last Taken Type Daily Vitamin 1 cap PO DAILY 01/04/21 01/04/21 01/03/21 History Move [facility] 1 tab PO DAILY 01/04/21 01/04/21 01/03/21 History Zyrtec 5 mg PO DAILY 01/04/21 01/04/21 01/03/21 History allopurinol [Zyloprim] 300 mg PO DAILY 01/04/21 01/04/21 01/03/21 History apixaban [Eliquis] 5 mg PO BID 01/04/21 01/04/21 01/03/21 History ascorbic acid (vitamin C) 500 mg PO BID 01/04/21 01/04/21 01/03/21 History carboxymethylcellulose-glycern 1 drp OPHTHALMIC (EYE) QID 01/04/21 01/04/21 01/03/21 History [Lubricating Drops] flaxseed 1,000 mg PO DAILY 01/04/21 01/04/21 01/03/21 History furosemide [Lasix] 20 mg PO DAILY 01/04/21 01/04/21 01/03/21 History metoprolol succinate [Toprol XL] 100 mg PO DAILY@1700 01/04/21 01/04/21 01/03/21 History valsartan 160 mg PO BID 01/04/21 01/04/21 01/03/21 History white petrolatum-mineral oil 1 appl OPHTHALMIC (EYE) BEDTIME 01/04/21 01/04/21 Unknown History [Lubrifresh PM] Physical Exam Vital Signs: Vital Signs: Last Vital Signs Temp 98.2 F 01/05/21 11:37 Pulse 84 01/05/21 11:37 Resp 18 01/05/21 11:37 BP 157/69 H 01/05/21 11:37 Pulse Ox 98 01/05/21 11:37 Body Mass Index 34.0 He was alert and awake with normal spontaneity of speech fluency comprehension and affect. He told me about his life in in different projects he did. There was no sign of confusion or distress. External ocular muscles were intact. Visual escobedo are full. Face was symmetrical. There was no pronator drift. Deep tendon reflexes were trace to absent with equivocal plantars. Results Labs CBC & Chem 7: 01/05/21 05:14 01/05/21 05:14 Labs: Short CBC 01/05/21 Range/Units 05:14 WBC 6.8 (4.8-10.8) X10*3/uL Hgb 11.2 L (14.0-18.0) g/dl Hct 32.3 L (42-52) % Plt Count 148 L (160-400) X10*3/uL BMP 01/05/21 05:14 Sodium 137 Potassium 4.0 Chloride 109 H Carbon Dioxide 19 L BUN 13 Creatinine 0.81 Calcium 7.8 L D His noncontrast head CT revealed [id number] diffuse cerebellar and cerebral atrophy but no obvious focal lesion. Microbiology Microbiology Results: Microbiology 01/04/21 Unknown Urine Catheterized - Straight Catheter Urine Culture - Preliminary Gram negative lavonne Assessment and Plan (1) New onset seizure: Status: Acute 85 years old man with new onset of seizure disorder with probably a secondarily generalized seizure. I recommend obtaining an MRI of brain with and without contrast to rule out any new focal pathology and an electroencephalogram. For now he should not drive and avoid any activity that could put his life in danger such as swimming alone or sitting in a soaking tub alone. If any further evidence for seizure disorder is noted, he might have to take an antiepileptic. As far as atrial fibrillation is concerned, I recommend continuing lifelong anticoagulation for stroke prevention. Procedures Date of Service Date of Service: 01/05/21
--- NOTE | 2021-01-05 13:01 | MHC.CM.PN ---
CM CONTACTED PTS , AURORA ([phone]) WHO REPORTS IT IS ONLY HER AND THE PT IN THE HOME. SHE REPORTS [employer], PT WAS INDEPENDENT WITH CARE AND MOBILITY. SHE REPORTS THE PT HAS NO SERVICES AND FOR DME USES ONLY A CPAP, THEY ALSO HAVE GRAB BARS IN THE BATHROOM INCLUDING THE SHOWER AREA. AURORA REPORTS SHE DOES NOT FEEL THE PT WILL NEED ANY SERVICES AT DC. 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 PTS RIGHTS THROUGH [employer] AND MEDICARE WERE BOTH REVIEWED WITH AURORA. SHE REQUESTED THEY BE LEFT AT PT BEDSIDE. AURORA REPORTS BEING UNSURE IF THE PT HAS A HCP. SHE REPORTS SHE SPOKE TO PT ON THE PHONE THIS MORNING AND HE IS SOUNDING MORE LIKE HIMSELF. CM WILL DISCUSS HCP WITH PT. AURORA CONFIRMS THE PTS PCP IS HAJA DAVIS, SHE ALSO REPORTS HE IS ACTIVE WITH [facility]. CURRENT DC PLAN IS HOME WITH NO SERVICES PTS AND SON WILL PROVIDE TRANSPORTATION AT DC
--- NOTE | 2021-01-05 14:21 | MHC.CM.PN ---
CM MET WITH PT TO REVIEW HIS MEDICARE AND RIGHTS. PT INDICATES UNDERSTANDING AND COPIES OF EACH WERE LEFT AT BEDSIDE. PT REPORTS HE AND HIS DO HAVE HCP'S, HE BELIEVES HE NAMED HIS DAUGHTER. COPY REQUESTED. CURRENT DC PLAN IS HOME, LIKELY WEDNESDAY. FAMILY TO TRANSPORT
[2021-01-06] VITALS (7 sets, daily range): BP systolic 159–172; BP diastolic 79–83; PULSE 68–78; RESP 16–18; TEMP 36.2–36.9; O2SAT 96–98; BMI 34.0
--- NOTE | 2021-01-06 | EEG_ITS ---
This is a 16-channel EEG with an EKG lead. The patient is reported awake during the tracing. Background EEG rhythm is low amplitude fast with no obvious asymmetry or paroxysmal tendency. Photic stimulation does not produce any significant abnormality. Hyperventilation is not performed. Cardiac lead does not reveal any significant abnormality. IMPRESSION: No significant abnormality noted on this EEG. MD LEANDRO Valdez/UZMA / [id number]
[2021-01-06] MEDS: 0.9 % Sodium Chloride Flush 3 ML SYRINGE IVFLUSH ×3 (08:14→19:56)
[2021-01-06] MEDS: allopurinoL 300 MG TABLET PO (08:25)
[2021-01-06] MEDS: Apixaban 5 MG TABLET PO ×2 (08:25→19:55)
[2021-01-06] MEDS: Valsartan 160 MG TABLET PO ×2 (08:25→19:55)
[2021-01-06] MEDS: Multivitamin TABLET 1 TAB PO (08:25)
[2021-01-06] MEDS: Metoprolol Succinate ER 100 MG TAB.ER.24H PO (08:26)
[2021-01-06] MEDS: cefTRIAXone sodium 1 GM in 0.9 % Sodium Chloride 50 ML IV (13:09)
--- NOTE | 2021-01-06 13:14 | HO.PM.IMPN ---
Subjective Subjective Date of Service: 01/07/21 Neurologic Neurologic: Reports confusion Psychiatric Psychiatric: Reports confusion Physical Exam Vital Signs: Vital Signs: Last Vital Signs Temp 97.6 F 01/06/21 08:00 Pulse 74 01/06/21 08:00 Resp 16 01/06/21 08:00 BP 159/79 H 01/06/21 08:00 Pulse Ox 96 01/06/21 08:00 Body Mass Index 34.0 Const: General: confusion and lethargic Orientation/consciousness: confusion and lethargic Chest: Chest palpation & inspection: normal inspection of the chest Resp: Effort & Inspection: normal respiratory effort Cardio: Jugular venous distension: no JVD Heart sounds: S1 normal heart sound present and S2 normal heart sound present GI: Inspection: Yes normal to inspection Palpation (GI): nontender Skin: General skin exam: no rashes or lesions noted Neuro: General: confusion and other (lethargic) Motor exam (neuro): 5/5 motor strength present throughout Objective Data Current Medications Generic Name Dose Route Start Last Admin Trade Name Freq PRN Reason Stop Dose Admin Allopurinol 300 mg 01/05/21 09:00 01/06/21 08:25 Allopurinol 300 Mg Tablet PO 300 mg DAILY [facility] Administration Apixaban 5 mg 01/04/21 21:00 01/06/21 08:25 Apixaban 5 Mg Tablet PO 5 mg BID [facility] Administration Ceftriaxone Sodium 1 gm/ 50 mls @ 100 mls/hr 01/05/21 11:00 01/06/21 13:09 Sodium Chloride IV 100 mls/hr Q24H [facility] Administration Metoprolol Succinate 100 mg 01/05/21 09:00 01/06/21 08:26 Metoprolol Succinate Er 100 Mg Tab.Er.24h PO 100 mg DAILY MICHEL Administration Protocol Multivitamins/Vitamin C 1 tab 01/05/21 09:00 01/06/21 08:25 Multivitamin Tablet PO 1 tab DAILY [facility] Administration Non-Formulary Medication 1 drop 01/04/21 17:00 Carboxymethylcellulose-Glycern [Lubricating Drops] EYE-BOTH QID [facility] Pharmacy Consult 1 each 01/04/21 11:09 Consult Rx Perform Med Rec MISCELLANE ONCE PRN Consult order Sodium Chloride 3 ml 01/04/21 16:38 01/06/21 08:14 0.9 % Sodium Chloride Flush 3 Ml Syringe IVFLUSH 3 ml QSHIFT [facility] Administration Tamsulosin HCl 0.4 mg 01/06/21 21:00 Tamsulosin Hcl 0.4 Mg Capsule PO BEDTIME [facility] Valsartan 160 mg 01/04/21 21:00 01/06/21 08:25 Valsartan 160 Mg Tablet PO 160 mg BID MICHEL Administration Labs CBC & Chem 7: 01/05/21 05:14 01/05/21 05:14 Microbiology Microbiology Results: Microbiology 01/04/21 10:18 Blood - Venous Blood Culture - Preliminary No growth after 48 hours. 01/04/21 10:11 Blood - Venous Blood Culture - Preliminary No growth after 48 hours. 01/04/21 Unknown Urine Catheterized - Straight Catheter Urine Culture - Final Serratia marcescens Assessment and Plan (1) New onset seizure: Status: Acute (2) Acute UTI: Status: Acute Assessment and Plan: 85-year-old male presented with new onset of seizure and found to have UTI admitted for further management New onset of seizure likely secondary to UTI CT head on admission shows no acute abnormality Received Ativan currently very sedated Seizure precaution Monitor on telemetry Aspiration precaution Will get neurology evaluation UTI Continue Rocephin Follow-up cultures Does straight cath once a week Monitor for urinary retention Atrial fibrillation Continue Lopressor and Eliquis Hypertension Continue Lopressor and losartan Toxic metabolic encephalopathy likely secondary to seizure and UTI Monitor mental status Treat underlying condition Sleep apnea Continue CPAP at night and as needed during day DVT prophylaxis on Eliquis Full code
[2021-01-06] MEDS: Tamsulosin HCL 0.4 MG CAPSULE PO (19:55)
[2021-01-07] VITALS: BP 155/88; PULSE 65; RESP 18; TEMP 36.4; O2SAT 97
[2021-01-07 04:00] VITALS: BP 144/88; PULSE 72; RESP 16; TEMP 37.1; O2SAT 96
[2021-01-07 07:07] VITALS: BP 147/72; PULSE 60; RESP 18; TEMP 36.1; O2SAT 97
[2021-01-07 09:47] VITALS: BP 147/72; PULSE 60
[2021-01-07] MEDS: Multivitamin TABLET 1 TAB PO (09:47)
[2021-01-07] MEDS: 0.9 % Sodium Chloride Flush 3 ML SYRINGE IVFLUSH (09:47)
[2021-01-07] MEDS: Metoprolol Succinate ER 100 MG TAB.ER.24H PO (09:47)
[2021-01-07] MEDS: allopurinoL 300 MG TABLET PO (09:47)
[2021-01-07] MEDS: Valsartan 160 MG TABLET PO (09:47)
[2021-01-07] MEDS: Apixaban 5 MG TABLET PO (09:48)
--- NOTE | 2021-01-07 10:46 | MHC.CM.PN ---
MALE 85 DX SZ, UTI PT IS DISCHARGED TO HOME, NO SERVICES. HOME CARE SERVICES WERE OFFERED; HE DECLINED. NOTIFIED THAT PT DECLINED SERVICES. hIS FAMILY IS PROVIDING TRANSPORTATION TO HOME.
[2021-01-07 11:16] VITALS: BP 154/75; PULSE 54; RESP 18; TEMP 36.6; O2SAT 96
--- NOTE | 2021-01-07 16:49 | PM.DS ---
DS: Providers Provider Date of Service: 01/08/21 Date of admission: 01/04/21 15:20 Primary care physician: Luna Dailey NP Consults: 01/04/21 16:38 Consult to Neurology Routine Consulting Provider: [facility] Reason for consultation: new onset of seizure DS: Diagnosis Discharge Diagnosis (1) New onset seizure: Status: Acute (2) Acute UTI: Status: Acute (3) Toxic metabolic encephalopathy: Status: Acute DS: Medications Discharge Medications Home Medications: Home Medications Medication Instructions Recorded Confirmed Daily Vitamin 1 cap PO DAILY 01/04/21 01/04/21 Eliquis 5 mg PO BID 01/04/21 01/04/21 Lubricating Drops 1 drp OPHTHALMIC (EYE) QID 01/04/21 01/04/21 Lubrifresh PM 1 appl OPHTHALMIC (EYE) BEDTIME 01/04/21 01/04/21 Move [facility] 1 tab PO DAILY 01/04/21 01/04/21 Zyrtec 5 mg PO DAILY 01/04/21 01/04/21 allopurinol [Zyloprim] 300 mg PO DAILY 01/04/21 01/04/21 ascorbic acid (vitamin C) 500 mg PO BID 01/04/21 01/04/21 flaxseed 1,000 mg PO DAILY 01/04/21 01/04/21 furosemide [Lasix] 20 mg PO DAILY 01/04/21 01/04/21 metoprolol succinate [Toprol XL] 100 mg PO DAILY@1700 01/04/21 01/04/21 valsartan 160 mg PO BID 01/04/21 01/04/21 Previous Rx's Medication Instructions Recorded cefuroxime axetil 500 mg PO BID 7 Days #14 tab 01/07/21 tamsulosin 0.4 mg PO BEDTIME #30 cap 01/07/21 DS: Summary Hospital Course Hospital Course: HPI Chief Complaint: seizure confusion H/o taken from ER physician and patient as patient very sleep and lethargic Per patient patient was in his usual health till yesterday evening, patient woke up this morning around 08:00am and was very confused and standing was staring at her , patient's tried to talk to him but was not responding, made him sit on the chair patient started having tonic colonic seizure, per patient was moving all his extremities and noticed frothing from mouth, called 911, patient's seizure activity stays for few minutes, patient was brought to emergency room, patient was very confused and agitated after the seizure, patient received total 4 mg of Ativanin er , no more seizure activity was noticed in the ER, CT head shows no acute abnormality, labs shows elevated lactic acidosis and UA was positive, patient received 1 dose of Rocephin and admission was requested denies any fever chills or sick contact, denies any history of seizure in the past Of note patient has urinary retention and does straight cath once a week hospital course 85-year-old male admitted with toxic metabolic encephalopathy secondary to UTI and seizure, patient was found to have new onset of seizure likely secondary to UTI, CT head on admission shows no acute abnormality, for for UTI patient was started on IV antibiotic, cultures were sent, blood culture were negative, urine culture grew Serratia marcescens patient was switched to p.o. Ceftin on discharge for new onset of seizure, CT head on admission shows no acute abnormality, neurology was consulted recommended MRI brain and EEG, MRI brain shows no focal lesion, EEG shows no no seizure activity, neurology recommended no need for anti seizure medication now, if seizure happen again then will need antiseizure medication patient was stable discharged home on p.o. antibiotic patient will follow-up PCP as outpatient Time Spent with Patient Time attestation: Total time spent providing and/or coordinating discharge services: Discharge coordination time: Greater than 30 minutes Physical Exam Vital Signs: Vital Signs: Last Vital Signs Temp 98 F 01/07/21 11:16 Pulse 54 01/07/21 11:16 Resp 18 01/07/21 11:16 BP 154/75 H 01/07/21 11:16 Pulse Ox 96 01/07/21 11:16 Body Mass Index 34.0 DS: Data Data Completed and Pending Labs on day of discharge: Preliminary micro results at discharge 01/04/21 10:18 Blood Culture - Preliminary Blood - Venous No growth after 48 hours. 01/04/21 10:11 Blood Culture - Preliminary Blood - Venous No growth after 48 hours. Discharge Plan Discharge Anticipated Discharge Date/Time: 01/07/21 10:11 Patient Disposition: Home, Self-Care Referrals: Luna Dailye TECHNICAL ADMINISTRATOR [Primary Care Provider] - Discharge Medications: New tamsulosin 0.4 mg Capsule 0.4 mg PO BEDTIME Qty: 30 RF: 0 cefuroxime axetil 500 mg tablet 500 mg PO BID 7 Days Qty: 14 RF: 0 Continued valsartan 160 mg Capsule 160 mg PO BID RF: 0 metoprolol succinate [Toprol XL] 100 mg Tablet Extended Release 24 Hr 100 mg PO DAILY@1700 RF: 0 allopurinol [Zyloprim] 300 mg Tablet 300 mg PO DAILY RF: 0 Eliquis 5 mg Tablet 5 mg PO BID RF: 0 furosemide [Lasix] 20 mg Tablet 20 mg PO DAILY RF: 0 flaxseed 1,000 mg Capsule 1,000 mg PO DAILY RF: 0 Zyrtec 5 mg PO DAILY RF: 0 Daily Vitamin capsule 1 cap PO DAILY RF: 0 [facility] tablet 1 tab PO DAILY RF: 0 Lubricating Drops 0.5-0.9 % Drops 1 drp OPHTHALMIC (EYE) QID RF: 0 ascorbic acid (vitamin C) 500 mg Tablet 500 mg PO BID RF: 0 Lubrifresh PM 83-15 % Ointment 1 appl OPHTHALMIC (EYE) BEDTIME RF: 0 Discharge Orders: Discharge Order (Routine); Ordered 01/07/21 Ordered By: Michael Jeong Diet: advance to usual diet Activity on Discharge: As tolerated Stand Alone Forms: Patient Portal Discharge page Care Plan Goals: prevent UTI Health Concerns: uti seizure Plan of Treatment: see above Discharge Date/Time: 01/07/21 12:40
== END 2021-01-07 12:40 | disposition home or self-care (01) | DRG 101 ==
LOC: HO.ED 12:09 → HO.EDOVER 15:32 → HO.IMC 15:35
PROVIDERS: Admitting Provider Internal Medicine; Emergency Provider Emergency Medicine; PCP Nurse Practitioner Family; Visit Provider Internal Medicine
DX: G40.909 Epilepsy, unspecified, not intractable, without status epilepticus (principal); N39.0 Urinary tract infection, site not specified; Z20.822 Contact with and (suspected) exposure to COVID-19; R33.9 Retention of urine, unspecified; G47.30 Sleep apnea, unspecified; Z79.01 Long term (current) use of anticoagulants; Z79.899 Other long term (current) drug therapy
CPT/HCPCS: 36415; 36600; 70450; 70553; 71045; 76775; 80048; 80076; 80307; 80320; 81001; 81003; 83605; 83880; 84484; 85025; 85610; 87040; 87086; 87088; 87186; 87635; 93005; 95816; 96365; 96375; 99285; A9585; J0696; J2060

== ENCOUNTER 2021-06-15 10:13 | Inpatient (IN) | payer OTHER, MEDICARE, SELFPAY ==
[2021-06-15] VITALS (15 sets, daily range): BP systolic 108–145; BP diastolic 49–80; PULSE 60–78; RESP 14–72; TEMP 36.3–37.3; O2SAT 97–99; BMI 31.4; BMI 31.1
--- NOTE | ~2021-06-15 | CT_ITS ---
EXAMINATION: CT ABDOMEN AND PELVIS WITHOUT CONTRAST CLINICAL INFORMATION: Anemia. Back pain. Rule out retroperitoneal bleed. COMPARISON: Renal ultrasound dated 01/06/2021. TECHNIQUE: Multidetector volumetric imaging was performed from the superior aspect of the liver through the pubic symphysis. Sagittal and coronal reformatted images were obtained on the technologist workstation. This CT examination was performed using dose optimization techniques as appropriate, variously including the following: *Automated exposure control *Adjustment of mA and/or kV according to patient size (this includes techniques or standardized protocols for targeted exams where dose is matched to indication/reason for exam; i.e. extremities or head) *Use of iterative reconstruction technique DLP: 655.54 mGy-cm. FINDINGS: LUNG BASES: Small retrocardiac hiatal hernia is seen. Mild coronary artery calcifications are noted. LIVER, GALLBLADDER, AND BILIARY TREE: The liver is normal in size, shape, and attenuation. No focal hepatic lesion on noncontrast imaging. No biliary ductal dilatation is present. Trace amount of free fluid is seen in Morison's pouch and in the paracolic gutters. The gallbladder is unremarkable with no evidence of radiopaque gallstones, gallbladder wall thickening, or obvious pericholecystic inflammatory changes. PANCREAS: A few scattered punctate calcifications is seen in the pancreatic head, consistent with chronic calcific pancreatitis. Remainder of pancreas unremarkable. Pancreas otherwise unremarkable. No peripancreatic fluid collection or pancreatic ductal dilatation. SPLEEN: Normal size. Tiny punctate calcification in the inferior posterior spleen likely a small calcified granuloma versus calcified vessel. Spleen otherwise unremarkable. ADRENAL GLANDS: Unremarkable on noncontrast imaging. KIDNEYS AND URETERS: The kidneys are normal in size, shape, and attenuation. No hydronephrosis, hydroureter, or calculi seen. No perinephric stranding. As seen on the ultrasound, there is a 1.8 cm low-attenuation mass (-11 Hounsfield units) in the mid right kidney, consistent with a benign cyst. A second parapelvic mid right renal 1.9 cm diameter cyst is seen. In the lower pole of the left kidney, a exophytic 1 cm low-attenuation cyst is seen. There is also a small posterior cortical 1 cm low-attenuation mass with mean attenuation values of -10.8 Hounsfield units, suggestive of a small cyst. The prior ultrasound shows images of the echogenic mass in the upper pole of the right kidney, suggesting a angiomyolipoma. This is not definitely visualized on this noncontrast CT scan. There is some confusion on the previous ultrasound with the images documenting this finding in the right kidney but the technologist notes documenting this finding in the left kidney. BLADDER: Bladder is partially distended and diffusely thick-walled in appearance, raising the suspicion of bladder wall hypertrophy versus interstitial cystitis. PELVIC VISCERA: Unremarkable. GASTROINTESTINAL TRACT: The small and large bowel are unremarkable. The appendix is unremarkable. ABDOMINAL WALL: Bilateral small fat-containing inguinal hernias are seen. Diastases of the rectus abdominis muscles is noted with a tiny fat-containing umbilical hernia seen. LYMPH NODES, VASCULAR: No significant abdominal or pelvic adenopathy. There is severe atherosclerotic calcification of the mid and distal aorta and moderate calcification of the remainder of the aorta. Prominent calcification seen at the origin of the SMA and both renal arteries. No periaortic collection. No evidence of retroperitoneal hematoma. OSSEOUS STRUCTURES: Severe degenerative disc disease at the lumbosacral junction and moderate vertebral spondylosis in lower thoracic spine and in the mid and lower lumbar spine. Moderate facet arthropathy in the lower lumbar spine. CT/CT abdomen pelvis wo con IMPRESSION: 1. No evidence of retroperitoneal hematoma or intra-abdominal bleed. Trace nonspecific ascites in Morison's pouch and in the lateral paracolic gutters 2. Renal masses described on recent renal ultrasound are poorly assessed on noncontrast CT scan. There are bilateral small renal cysts suggested. The echogenic mass in the upper pole of the right kidney is not visualized on this exam. (As discussed above, laterality of the echogenic mass is in question based on discrepancy in image labeling and technologist notes.) 3. Small retrocardiac hiatal hernia. 4. Diffusely thick-walled appearance of the bladder, perhaps related to bladder wall hypertrophy versus interstitial cystitis. Clinical correlation requested. 5. Atherosclerotic vascular disease.
--- NOTE | ~2021-06-15 | XR_ITS ---
EXAMINATION: XR CHEST CLINICAL INFORMATION: Resolved SOB COMPARISON: Chest 01/04/2021 TECHNIQUE: Frontal view of the chest was obtained. FINDINGS: The lungs are well-expanded and clear of acute process. The heart size is enlarged. The pulmonary vascularity is normal. There is mild spondylosis of dorsal spine. XR/XR chest 1V IMPRESSION: No acute pulmonary process. Mild cardiomegaly. Mild spondylosis of dorsal spine.
--- NOTE | 2021-06-15 10:58 | ECG_ITS ---
Test Reason : CP Blood Pressure : / mmHG Vent. Rate : 057 BPM Atrial Rate : 040 BPM P-R Int : 000 ms QRS Dur : 086 ms QT Int : 448 ms P-R-T Axes : 000 011 -06 degrees QTc Int : 436 ms Atrial fibrillation with slow ventricular response with a competing junctional pacemaker Abnormal ECG When compared with ECG of 04-JAN-2021 10:03, Heart rate has decreased Referred By: Ha Meza Electronically Signed By:MIGUELITO HERNANDEZ
--- NOTE | 2021-06-15 11:01 | ED.GENADULT ---
HPI - General Adult General Chief complaint: Dizziness Stated complaint: sob back pain Time Seen by Provider: 06/15/21 10:46 Source: patient Mode of arrival: ambulatory Limitations: no limitations History of Present Illness HPI narrative: Patient presents to the ED for multiple complaints. Patient Presents to the ED for intermittent dizziness since last week Wednesday described as lightheadedness. Patient denies is room spinning. Patient's secondary complaint is low back pain and also shortness of breath. Patient denies any pleuritic chest pain, fever, chills, rectal bleeding, vomiting blood. Patient denies any neuro deficits. Family states patient is on Coumadin. Related Data Home Medications Medication Instructions Recorded Confirmed Daily Vitamin 1 cap PO DAILY 01/04/21 06/15/21 Move Free Joint Health 1 tab PO DAILY 01/04/21 06/15/21 Zyrtec 5 mg PO DAILY 01/04/21 06/15/21 allopurinol 300 mg tablet 300 mg PO DAILY 01/04/21 06/15/21 (Zyloprim) apixaban 5 mg tablet (Eliquis) 5 mg PO BID 01/04/21 06/15/21 ascorbic acid (vitamin C) 500 mg 500 mg PO BID 01/04/21 06/15/21 tablet flaxseed 1,000 mg capsule 1,000 mg PO DAILY 01/04/21 06/15/21 furosemide 20 mg tablet (Lasix) 20 mg PO DAILY 01/04/21 06/15/21 metoprolol succinate 100 mg 100 mg PO DAILY@1700 01/04/21 06/15/21 tablet,extended release 24 hr (Toprol XL) valsartan 160 mg capsule 160 mg PO BID 01/04/21 06/15/21 Allergies Allergy/AdvReac Type Severity Reaction Status Date / Time No Known Allergies Allergy Verified 01/14/21 10:01 Review of Systems Review of Systems: Yes all other systems are reviewed and are negative Constitutional: Constitutional: Reports as per HPI and Reports no additional constitutional complaints Eyes: Eyes: Reports as per HPI and Reports no additional eye complaints ENT: Reports system reviewed and no additional complaints, except as documented and Reports as per HPI Cardiovascular: Cardiovascular: Reports as per HPI, Reports no additional cardiovascular complaints and Reports dyspnea Respiratory: Respiratory: Reports as per HPI, Reports no additional respiratory complaints and Reports dyspnea Gastrointestinal: Gastrointestinal: Reports as per HPI and Reports no additional gastrointestinal complaints Genitourinary: Genitourinary: Reports no additional male genitourinary complaints and Reports as per HPI Musculoskeletal: Musculoskeletal: Reports no additional musculoskeletal complaints, Reports as per HPI and Reports back pain (low back pain) Neurologic: Reports system reviewed and no additional complaints, except as documented and Reports as per HPI Psychiatric: Psychiatric: Reports no additional psychiatric complaints and Reports as per HPI [facility] Past Medical History Medical History (Updated 06/15/21 @ 14:43 by GALILEA Dawn) Afib Hypertension Sleep apnea Surgical History H/O hand surgery Family History Family History Other HTN (hypertension) Social History Social History (Updated 06/15/21 @ 14:21 by GALILEA Watson) Household Members: Spouse Housing: House Do you presently have visiting nurse or other home services: No Alcohol intake: current Alcohol intake frequency: holidays/special occasions only Smoked in Last 30 Days: No Second Hand Smoke Exposure: No Use of substances other than those prescribed or required for medical reasons: No Advance Directives: Yes Advance Directives Information Provided: Yes Advance Directives on File: No service: Yes Current occupational status: retired Physical Exam Vital Signs: Vital Signs: Last Vital Signs Temp 98.1 F 06/15/21 14:44 Pulse 62 06/15/21 14:44 Resp 14 06/15/21 14:44 BP 115/55 L 06/15/21 14:44 Pulse Ox 98 06/15/21 12:00 Body Mass Index 31.4 Const: General: cooperative, healthy appearing, comfortable, no acute distress, well developed, alert, awake and Physically active Orientation/consciousness: patient oriented x3 HENMT: Head: Yes normal to inspection, Yes No palpable skull fracture present, Yes normocephalic, Yes atraumatic and No abrasion Eyes: General: appearance normal, both eyes and all related structures Neck: Neck: Yes normal visual inspection, Yes full ROM, Yes no lymphadenopathy, Yes no meningeal signs, Yes trachea midline, Yes supple and No tender Chest: Chest palpation & inspection: normal inspection of the chest and normal palpation of entire chest wall Resp: Effort & Inspection: normal respiratory effort and able to speak in complete sentences Auscultation: clear to auscultation bilaterally Cardio: Jugular venous distension: no JVD Heart sounds: S1 normal heart sound present and S2 normal heart sound present GI: Inspection: Yes normal to inspection and No abdominal wall ecchymosis Palpation (GI): Soft to palpation, not firm, nontender, no guarding and not rigid : General: No CVA tenderness and Yes no CVA tenderness Back/Spine/Pelvis: Back: no CVA tenderness, No CVA tenderness and back tenderness (lumbar) Skin: General skin exam: no rashes or lesions noted and elasticity normal Neuro: Other: Negative for facial droop. Negative for slurred speech. All extremities equal strength 5+. [id number] and rapid hand movement intact. Negative Romberg. General: patient oriented x3, gait normal, no meningeal signs and CN's II-XI intact bilaterally Cranial nerves: Yes CN's II-XII intact bilaterally Extrem: General: Yes normal to inspection and Yes full ROM Psych: Appearance: grossly normal, well kempt and not disheveled Course Course Course Narrative: Patient presently is asymptomatic we will do labs and EKG. Probably sent for imaging. Negative for any neuro deficits presently. Reevaluation(s) Reevaluation #1: Patient initial labs shows anemia. Rectal exam negative for any vel blood or black stool. Patient sign consent for 2 units of blood. Will contact hospitalist. Fluid or Time: 11:41 Reevaluation #2: Consulting Dr. Levy of Gastroenterology and she is agreeable with plan and patient should receive 2 units of blood. She also recommend patient received Protonix. She has agreed during admission patient will receive possible and endoscpy. Stool occult guaiac test came back negative. Case presented to hospitalist Dr. Martin who accept the case. Time: 13:30 Medical Decision Making MDM Narrative Medical decision making narrative: Symptomatic anemia. Lab Data Result diagrams: 06/15/21 11:20 06/15/21 11:21 Labs: Lab Results 06/15/21 06/15/21 06/15/21 Range/Units 11:20 11:20 11:21 WBC 6.9 (4.8-10.8) X10*3/uL RBC 2.57 L D (4.60-5.80) X10*6/uL Hgb 6.5 L* D (14.0-18.0) g/dl Hct 21.2 L D (42-52) % MCV 82.5 (80-98) fL MCH 25.3 L (27.0-33.0) pg MCHC 30.7 L (31.0-36.0) g/dl RDW 13.9 (11.0-16.0) % Plt Count 253 D (160-400) X10*3/uL MPV 9.3 L (9.4-12.4) fL Immature Gran % (Auto) 0.4 (0.0-0.4) % Neut % (Auto) 65.1 (45-73) % Lymph % (Auto) 22.8 (20-40) % [place] % (Auto) 9.1 (2-11) % Eos % (Auto) 2.3 (0-4) % Baso % (Auto) 0.3 (0-2) % Lymph # (Auto) 1.6 (1.2-4.9) X10*3/uL [place] # (Auto) 0.6 (0.1-1.2) X10*3/uL Eos # (Auto) 0.2 (0.0-0.4) X10*3/uL Baso # (Auto) 0.0 (0.0-0.2) X10*3/uL Abs Immat Gran (auto) 0.03 (0.00-0.03) X10*3/uL Absolute Neuts (auto) 4.5 (2.0-8.3) X10*3/uL Absolute Nucleated RBC 0.000 (0.0-0.012) X10*3/uL Nucleated RBC % (auto) 0.0 (0.0-0.2) /100WBC PT 19.7 H (9.9-13.0) SEC INR 1.7 H (0.9-1.1) APTT 34.3 (24.1-38.0) SEC D-Dimer NG/ML Sodium 131 L (135-145) mmol/L Potassium 4.5 (3.3-5.1) mmol/L Chloride 100 (96-108) mmol/L Carbon Dioxide 22 (22-29) mmol/L Anion Gap 14 (12-20) BUN 17 H (9-16) mg/dL Creatinine 1.23 (0.5-1.4) mg/dL Estim Creat Clear Calc 47.4 Estimated GFR 56 Random Glucose 148 H (60-115) mg/dL Calcium 8.7 D (8.4-10.2) mg/dL Iron 24 L (45-160) mcg/dL TIBC 507 H (228-428) mcg/dL % Saturation 5 L (15-50) % Unsat Iron Binding 483 ug/dL Ferritin 4 L (20-250) ng/mL Troponin I High Sens (<3.5-35.0) ng/L B-Natriuretic Peptide (<100) pg/mL Stool Occult Blood (NEGATIVE) Coronavirus (PCR) (Negative) Influenza Type A (PCR) (Negative) Influenza Type B (PCR) (Negative) RSV RNA Qual (PCR) (Negative) Blood Type Antibody Screen Crossmatch 06/15/21 06/15/21 06/15/21 Range/Units 11:21 11:21 11:21 WBC (4.8-10.8) X10*3/uL RBC (4.60-5.80) X10*6/uL Hgb (14.0-18.0) g/dl Hct (42-52) % MCV (80-98) fL MCH (27.0-33.0) pg MCHC (31.0-36.0) g/dl RDW (11.0-16.0) % Plt Count (160-400) X10*3/uL MPV (9.4-12.4) fL Immature Gran % (Auto) (0.0-0.4) % Neut % (Auto) (45-73) % Lymph % (Auto) (20-40) % [place] % (Auto) (2-11) % Eos % (Auto) (0-4) % Baso % (Auto) (0-2) % Lymph # (Auto) (1.2-4.9) X10*3/uL [place] # (Auto) (0.1-1.2) X10*3/uL Eos # (Auto) (0.0-0.4) X10*3/uL Baso # (Auto) (0.0-0.2) X10*3/uL Abs Immat Gran (auto) (0.00-0.03) X10*3/uL Absolute Neuts (auto) (2.0-8.3) X10*3/uL Absolute Nucleated RBC (0.0-0.012) X10*3/uL Nucleated RBC % (auto) (0.0-0.2) /100WBC PT (9.9-13.0) SEC INR (0.9-1.1) APTT (24.1-38.0) SEC D-Dimer 552 NG/ML Sodium (135-145) mmol/L Potassium (3.3-5.1) mmol/L Chloride (96-108) mmol/L Carbon Dioxide (22-29) mmol/L Anion Gap (12-20) BUN (9-16) mg/dL Creatinine (0.5-1.4) mg/dL Estim Creat Clear Calc Estimated GFR Random Glucose (60-115) mg/dL Calcium (8.4-10.2) mg/dL Iron (45-160) mcg/dL TIBC (228-428) mcg/dL % Saturation (15-50) % Unsat Iron Binding ug/dL Ferritin (20-250) ng/mL Troponin I High Sens 6.5 (<3.5-35.0) ng/L B-Natriuretic Peptide 621 H (<100) pg/mL Stool Occult Blood (NEGATIVE) Coronavirus (PCR) NEGATIVE (Negative) Influenza Type A (PCR) NEGATIVE (Negative) Influenza Type B (PCR) NEGATIVE (Negative) RSV RNA Qual (PCR) NEGATIVE (Negative) Blood Type Antibody Screen Crossmatch 06/15/21 06/15/21 Range/Units 11:36 11:54 WBC (4.8-10.8) X10*3/uL RBC (4.60-5.80) X10*6/uL Hgb (14.0-18.0) g/dl Hct (42-52) % MCV (80-98) fL MCH (27.0-33.0) pg MCHC (31.0-36.0) g/dl RDW (11.0-16.0) % Plt Count (160-400) X10*3/uL MPV (9.4-12.4) fL Immature Gran % (Auto) (0.0-0.4) % Neut % (Auto) (45-73) % Lymph % (Auto) (20-40) % [place] % (Auto) (2-11) % Eos % (Auto) (0-4) % Baso % (Auto) (0-2) % Lymph # (Auto) (1.2-4.9) X10*3/uL [place] # (Auto) (0.1-1.2) X10*3/uL Eos # (Auto) (0.0-0.4) X10*3/uL Baso # (Auto) (0.0-0.2) X10*3/uL Abs Immat Gran (auto) (0.00-0.03) X10*3/uL Absolute Neuts (auto) (2.0-8.3) X10*3/uL Absolute Nucleated RBC (0.0-0.012) X10*3/uL Nucleated RBC % (auto) (0.0-0.2) /100WBC PT (9.9-13.0) SEC INR (0.9-1.1) APTT (24.1-38.0) SEC D-Dimer NG/ML Sodium (135-145) mmol/L Potassium (3.3-5.1) mmol/L Chloride (96-108) mmol/L Carbon Dioxide (22-29) mmol/L Anion Gap (12-20) BUN (9-16) mg/dL Creatinine (0.5-1.4) mg/dL Estim Creat Clear Calc Estimated GFR Random Glucose (60-115) mg/dL Calcium (8.4-10.2) mg/dL Iron (45-160) mcg/dL TIBC (228-428) mcg/dL % Saturation (15-50) % Unsat Iron Binding ug/dL Ferritin (20-250) ng/mL Troponin I High Sens (<3.5-35.0) ng/L B-Natriuretic Peptide (<100) pg/mL Stool Occult Blood NEGATIVE (NEGATIVE) Coronavirus (PCR) (Negative) Influenza Type A (PCR) (Negative) Influenza Type B (PCR) (Negative) RSV RNA Qual (PCR) (Negative) Blood Type A Positive Antibody Screen NEGATIVE Crossmatch See Detail ECG Data Interpretation: Atrial Fibrillation. HR 57. QRS,86 Qtc 436 Discharge Plan Discharge Clinical Impression: Symptomatic anemia Patient Disposition: Admitted As Inpatient
[2021-06-15 11:25] LABS: MANUAL DIFF FLAG NO
[2021-06-15 11:27] LABS: Basophils Percent Auto 0.3 % (0-2); Eosinophils Absolute Auto 0.2 X10*3/uL (0.0-0.4); Eosinophils Percent Auto 2.3 % (0-4); Hematocrit 21.2 % (42-52); Imm Gran Abs Auto 0.03 X10*3/uL (0.00-0.03); Imm Gran Pct Auto 0.4 % (0.0-0.4); Lymphocytes Absolute Auto 1.6 X10*3/uL (1.2-4.9); Lymphocytes Percent Auto 22.8 % (20-40); Mean Corpuscular HGB Conc 30.7 g/dl (31.0-36.0); Mean Corpuscular Hemoglobin 25.3 pg (27.0-33.0); Mean Corpuscular Volume 82.5 fL (80-98); Mean Platelet Volume 9.3 fL (9.4-12.4); Monocytes Absolute Auto 0.6 X10*3/uL (0.1-1.2); Monocytes Percent Auto 9.1 % (2-11); Neutrophils Absolute Auto 4.5 X10*3/uL (2.0-8.3); Neutrophils Percent Auto 65.1 % (45-73); Platelet Count 253 X10*3/uL (160-400); Red Blood Count 2.57 X10*6/uL (4.60-5.80); Red Cell Distribution Width 13.9 % (11.0-16.0)
[2021-06-15 11:29] LABS: Hemoglobin 6.5 g/dl (14.0-18.0)
[2021-06-15 11:32] LABS: White Blood Count 6.9 X10*3/uL (4.8-10.8)
[2021-06-15 11:38] LABS: INTERNATIONAL NORM RATIO 1.7 (0.9-1.1); Prothrombin Time 19.7 SEC (9.9-13.0)
[2021-06-15 11:40] LABS: Partial Thromboplastin Time 34.3 SEC (24.1-38.0)
[2021-06-15 11:42] LABS: OBS Int Ctl Valid YES; OBS1 NEGATIVE (NEGATIVE)
[2021-06-15 11:51] LABS: Anion Gap 14 (12-20); Blood Urea Nitrogen 17 mg/dL (9-16); Calcium 8.7 mg/dL (8.4-10.2); Carbon Dioxide 22 mmol/L (22-29); Chloride 100 mmol/L (96-108); Creatinine Clr Calc Pharmacy 47.4; Estimated Glomerular Filt Rate 56; Glucose Random 148 mg/dL (60-115); Potassium 4.5 mmol/L (3.3-5.1); Sodium 131 mmol/L (135-145)
[2021-06-15 11:54] LABS: D Dimer 552 NG/ML
[2021-06-15 11:56] LABS: B Type Natriuretic Peptide 621 pg/mL (<100); Troponin-I High Sensitivity 6.5 ng/L (<3.5-35.0)
[2021-06-15] MEDS: 0.9 % Sodium Chloride 1,000 ML 999 ML IV (11:59)
[2021-06-15] MEDS: Pantoprazole Sodium 40 MG/10 ML VIAL 80 MG IVPUSH (12:47)
[2021-06-15] MEDS: Furosemide 40 MG/4 ML VIAL IVPUSH (12:47)
--- NOTE | 2021-06-15 13:04 | P.CNGI_ITS ---
History of Present Illness Data of Consult Service Date: 06/15/21 Requesting physician: Kathleen Adame Primary Care Provider: Luna Dailey NP HPI Reason for consult: severe anemia 85 YM with hypertension, sleep apnea, chronic atrial fibrillation on Eliquis came to [facility] ED this am with dizziness and lightheadedness for the past week: HPI narrative: Patient presents to the ED for multiple complaints.? Patient Presents to the ED for intermittent dizziness since last week Wednesday de scribed as lightheadedness.? Patient denies is room spinning.? Patient's secondary complaint is low back pain and also shortness of breath.? Patient denies any pleuritic chest pain, fever, chills, rectal bleeding, vomiting blood.? Patient denies any neuro deficits.? Family states patient is on Couma din. Labs showed H & H of 6.5 and 21.2 (decreased from H & H of 11.2 & 32.3 in 12/2020). INR 1.7. Iron studies consistent with iron deficiency anemia. He is being transfused 2 U PRBC in the ED. Pt admits to feeling weak and having shortness of breath on walking over the past few weeks. Patient denies symptoms of heartburn, dysphagia, nausea, vomiting, change in appetite or weight. He denies recent change in bowel habits, constipation, diarrhea, black stools or rectal bleeding. Patient is on Eliquis for chronic atrial fibrillation He admits to a hx of sleep apnea and uses a CPAP machine. Patient admits to having urinary problem and perform self catheterization once a week. Patient denies known family history of colon polyps, colon cancer or other GI malignancies. His dad was a heavy smoker of lung cancer. Patient denies smoking or EtOH abuse. He is and has 4 kids in 10 grandkids. 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 No evidence of retroperitoneal hematoma or intra-abdominal bleed. Trace nonspecific ascites in Morison's pouch and in the lateral paracolic gutters 2. Renal masses described on recent renal ultrasound are poorly assessed on noncontrast CT scan. There are bilateral small renal cysts suggested. The echogenic mass in the upper pole of the right kidney is not visualized on this exam. (As discussed above, laterality of the echogenic mass is in question based on discrepancy in image labeling and technologist notes.) 3. Small retrocardiac hiatal hernia. 4. Diffusely thick-walled appearance of the bladder, perhaps related to bladder wall hypertrophy versus interstitial cystitis. Clinical correlation requested. 5. Atherosclerotic vascular disease. ENDOSCOPIC STUDIES: Pt has had 3 colonoscopies in the past by Dr Angeles with removal of small adenomatous polyps - last colonoscopy in 08/2011: Mild sigmoid colon diverticulosis and hemorrhoids A 5 mm adenomatous polyp was removed from [facility] Review of Systems Constitutional: Constitutional: Reports fatigue, Denies fever(s), Denies headache(s), Reports weakness and Denies weight loss Eyes: Eyes: Denies eye discharge and Denies irritation ENT: Reports Normal hearing present, Denies dysphagia, Denies dizziness and Denies headache(s) Cardiovascular: Cardiovascular: Denies chest pain, Denies leg edema and Reports dyspnea on exertion Respiratory: Respiratory: Denies cough and Reports dyspnea on exertion Gastrointestinal: Gastrointestinal: Denies abdominal pain, Denies change in bowel habits, Denies dysphagia and Denies heartburn Genitourinary: Genitourinary: Denies dysuria Musculoskeletal: Musculoskeletal: Denies back pain and Denies arthralgias Integumentary/Breasts: Skin/Breast: Denies pruritus, Denies rash and Denies jaundice Neurologic: Reports Normal hearing present, Denies Abnormal speech present, Denies dizziness, Denies headache(s), Denies seizure-like activity and Reports w eakness Psychiatric: Psychiatric: Denies anxiety, Denies depression and Denies panic attacks Endocrine: Endocrine: Denies cold intolerance, Reports fatigue, Denies flushing and Denies heat intolerance Hematologic/Lymphatic: Hematologic/Lymphatic: Denies easy bleeding and Denies easy bruising PMFSH Past Medical History Medical History (Updated 06/15/21 @ 16:36 by Kareem Levy MD) Afib Hypertension Sleep apnea Family History Family History Other HTN (hypertension) Surgical History Surgical History H/O hand surgery Social History Social History (Updated 06/15/21 @ 14:21 by GALILEA Watson) Household Members: Spouse Housing: House Do you presently have visiting nurse or other home services: No Alcohol intake: current Alcohol intake frequency: holidays/special occasions only Smoked in Last 30 Days: No Second Hand Smoke Exposure: No Use of substances other than those prescribed or required for medical reasons: No Advance Directives: Yes Advance Directives Information Provided: Yes Advance Directives on File: No service: Yes Current occupational status: retired Meds Allergies Allergy/AdvReac Type Severity Reaction Status Date / Time No Known Allergies Allergy Verified 01/14/21 10:01 Home Medications Medication Instructions Recorded Confirmed Last Taken Type Daily Vitamin 1 cap PO DAILY 01/04/21 06/15/21 01/03/21 History Move Free Joint Health 1 tab PO DAILY 01/04/21 06/15/21 01/03/21 History Zyrtec 5 mg PO DAILY 01/04/21 06/15/21 01/03/21 History allopurinol 300 mg tablet 300 mg PO DAILY 01/04/21 06/15/21 01/03/21 History (Zyloprim) apixaban 5 mg tablet (Eliquis) 5 mg PO BID 01/04/21 06/15/21 01/03/21 History ascorbic acid (vitamin C) 500 mg 500 mg PO BID 01/04/21 06/15/21 01/03/21 History tablet flaxseed 1,000 mg capsule 1,000 mg PO DAILY 01/04/21 06/15/21 01/03/21 History furosemide 20 mg tablet (Lasix) 20 mg PO DAILY 01/04/21 06/15/21 01/03/21 History metoprolol succinate 100 mg 100 mg PO DAILY@1700 01/04/21 06/15/21 01/03/21 History tablet,extended release 24 hr (Toprol XL) valsartan 160 mg capsule 160 mg PO BID 01/04/21 06/15/21 01/03/21 History Physical Exam Vital Signs: Vital Signs: Last Vital Signs Temp 98 F 06/15/21 10:24 Pulse 60 06/15/21 12:00 Resp 14 06/15/21 12:00 BP 123/67 06/15/21 12:00 Pulse Ox 98 06/15/21 12:00 Body Mass Index 31.4 Const: General: healthy appearing and no acute distress Nutritional Appearance: average body habitus Orientation/consciousness: patient oriented x3 Limitations: no limitations HENMT: Head: Yes normal to inspection Ears: hearing grossly normal bilaterally Mouth: Normal oral and palatal mucosa present Eyes: Sclerae: sclerae normal Pupils: Equal, round and reactive pupils present Neck: Neck: Yes normal visual inspection Chest: Chest palpation & inspection: normal inspection of the chest Resp: Effort & Inspection: normal respiratory effort Auscultation: clear to auscultation bilaterally Cardio: Palpation: normal PMI Rate: regular rate Rhythm: abnormal rhythm (Irregularly irregular) Heart sounds: S1 normal heart sound present, S2 no rmal heart sound present and no murmurs GI: Palpation (GI): Soft to palpation, nontender and No hepatosplenomegaly present Auscultation: normal bowel sounds Rectal Exam - Male: Yes deferred Skin: General skin exam: no rashes or lesions noted Neuro: General: patient oriented x3, gait normal and moves all extremities Cranial nerves: Yes Equal, round and reactive pupils present and Yes Normal hearing present Speech: No Abnormal speech present Extrem: General: No clubbing, No cyanosis and No edema Psych: Appearance: grossly normal Mental Status: mental status grossly normal Results Labs CBC & Chem 7: 06/15/21 11:20 06/15/21 11:21 Labs: Short CBC 06/15/21 Range/Units 11:20 WBC 6.9 (4.8-10.8) X10*3/uL Hgb 6.5 L* D (14.0-18.0) g/dl Hct 21.2 L D (42-52) % Plt Count 253 D (160-400) X10*3/uL BMP 06/15/21 11:21 Sodium 131 L Potassium 4.5 Chloride 100 Carbon Dioxide 22 BUN 17 H Creatinine 1.23 Calcium 8.7 D Assessment and Plan (1) Chronic anticoagulation: Status: Acute (2) Symptomatic anemia: Status: Acute 85 YM with hypertension, sleep apnea, chronic atrial fibrillation on Eliquis came to [facility] ED this am with dizziness and lightheadedness for the past week. Labs show severe anemia and patient is being transfused. Anemia can be from slow GI blood loss or hemolysis Pt denies any GI symptoms and stool occult blood was negative. Pt has a hx of adenomatous colon polyps and last colonoscopy was in 2010. Pt is on Eliquis twice daily and took the last dose today at 8 am. RECOMMENDATIONS: 1. Hold Eliquis. 2. IV PPI 3. Check reticulocyte count, LDH and haptoglobin - added to labs drawn earlier today. 4. Pt needs further evaluation with EGD and Colonoscopy after he is off Eliquis for 48 hrs. He is followed by Dr Angeles and Nuzhat at [facility] - I will request them to follow up with the patient tomorrow and schedule endoscopic procedures Procedures Date of Service Date of Service: 06/15/21
[2021-06-15 13:35] LABS: Influenza A PCR NEGATIVE (Negative); Influenza B PCR NEGATIVE (Negative); Resp Syncy Virus RNA Qual PCR NEGATIVE (Negative); SARS COV2 PCR INHOUSE NEGATIVE (Negative)
[2021-06-15 13:40] LABS: Unsaturated Iron Binding 483 ug/dL
[2021-06-15 13:41] LABS: Iron 24 mcg/dL (45-160); Percent Iron Saturation 5 % (15-50); Total Iron Binding Capacity 507 mcg/dL (228-428)
[2021-06-15 13:56] LABS: Ferritin 4 ng/mL (20-250)
--- NOTE | 2021-06-15 14:12 | PM.IMHP ---
History of Present Illness Date of Service: 06/15/21 Chief Complaint: Dizziness This is an 85-year-old male with a history of atrial fibrillation on Eliquis among others who presents to the emergency department with fatigue. For the past 2-3 days he has been having shortness of breath with exertion, generalized weakness and dizziness which he describes as lightheadedness especially upon standing. He denies any orthopnea or paroxysmal nocturnal dyspnea. His workup in the emergency department was significant for anemia with an H/H of 6.5/21.2 down from 11.2/32.2 in December. His stool occult was negative. Chest xray was unremarkable. BNP was elevated at 621. He denies any chest pain. He denies any rectal bleeding. His last colonoscopy was 10-15 years ago, at that time he had a polyp removed. He denies any weight loss or use of nsaids. He does take Eliquis for underlying atrial fibrillation. he denies abdominal pain. He reports having low back pain over the past few weeks and has been seeing his chiropractor. He denies any back pain at this time. In the ED, he received dose of IV Lasix, IV Protonix and 2 units of blood were ordered. He will be admitted for further management of symptomatic anemia. Review of Systems Review of Systems: Yes all other systems are reviewed and are negative Constitutional: Constitutional: Denies chills, Reports fatigue and Denies fever(s) ENT: Reports dizziness Cardiovascular: Cardiovascular: Denies chest pain, Denies palpitations, Reports dyspnea on exertion, Denies orthopnea and Denies paroxysmal nocturnal dyspnea Respiratory: Respiratory: Denies cough and Reports dyspnea on exertion Gastrointestinal: Gastrointestinal: Denies abdominal pain Neurologic: Reports dizziness Endocrine: Endocrine: Reports fatigue and Denies palpitations [facility]LY [facility] Medical History (Updated 06/15/21 @ 14:43 by GALILEA Dawn) Afib Hypertension Sleep apnea Functional capacity: independent ambulation Family History Other HTN (hypertension) Surgical History H/O hand surgery Social History (Updated 06/15/21 @ 14:21 by GALILEA Watson) Household Members: Spouse Housing: House Do you presently have visiting nurse or other home services: No Alcohol intake: current Alcohol intake frequency: holidays/special occasions only Smoked in Last 30 Days: No Second Hand Smoke Exposure: No Use of substances other than those prescribed or required for medical reasons: No Advance Directives: Yes Advance Directives Information Provided: Yes Advance Directives on File: No service: Yes Current occupational status: retired Meds Allergies Allergy/AdvReac Type Severity Reaction Status Date / Time No Known Allergies Allergy Verified 01/14/21 10:01 Home Medications Medication Instructions Recorded Confirmed Last Taken Type Daily Vitamin 1 cap PO DAILY 01/04/21 06/15/21 01/03/21 History Move Free Joint Health 1 tab PO DAILY 01/04/21 06/15/21 01/03/21 History Zyrtec 5 mg PO DAILY 01/04/21 06/15/21 01/03/21 History allopurinol 300 mg tablet 300 mg PO DAILY 01/04/21 06/15/21 01/03/21 History (Zyloprim) apixaban 5 mg tablet (Eliquis) 5 mg PO BID 01/04/21 06/15/21 01/03/21 History ascorbic acid (vitamin C) 500 mg 500 mg PO BID 01/04/21 06/15/21 01/03/21 History tablet flaxseed 1,000 mg capsule 1,000 mg PO DAILY 01/04/21 06/15/21 01/03/21 History furosemide 20 mg tablet (Lasix) 20 mg PO DAILY 01/04/21 06/15/21 01/03/21 History metoprolol succinate 100 mg 100 mg PO DAILY@1700 01/04/21 06/15/21 01/03/21 History tablet,extended release 24 hr (Toprol XL) valsartan 160 mg capsule 160 mg PO BID 01/04/21 06/15/21 01/03/21 History Physical Exam Vital Signs and Narrative: Vital Signs: Last Vital Signs Temp 98 F 06/15/21 10:24 Pulse 60 06/15/21 12:00 Resp 14 06/15/21 12:00 BP 123/67 06/15/21 12:00 Pulse Ox 98 06/15/21 12:00 Body Mass Index 31.4 Const: Other: pale General: comfortable, no acute distress and awake Nutritional Appearance: well nourished Orientation/consciousness: patient oriented x3 HENMT: Head: Yes normocephalic and Yes atraumatic Eyes: Sclerae: sclerae normal Resp: Effort & Inspection: normal respiratory effort and no respiratory distress Auscultation: crackles Cardio: Jugular venous distension: JVD Rate: regular rate Rhythm: abnormal rhythm irregularly irregular GI: Inspection: No distended Palpation (GI): Soft to palpation, nontender and no guarding Neuro: General: patient oriented x3 Cranial nerves: Yes CN's II-XII intact bilaterally and Yes Bilaterally intact EOM present Extrem: General: Yes no pedal edema Results Labs CBC and Chem 7: 06/15/21 11:20 06/15/21 11:21 Labs: Laboratory Results - last 24 hr 06/15/21 06/15/21 06/15/21 11:20 11:20 11:21 MCV 82.5 MCH 25.3 L MCHC 30.7 L RDW 13.9 Plt Count 253 D MPV 9.3 L Immature Gran % (Auto) 0.4 Neut % (Auto) 65.1 Lymph % (Auto) 22.8 [place] % (Auto) 9.1 Eos % (Auto) 2.3 Baso % (Auto) 0.3 Lymph # (Auto) 1.6 [place] # (Auto) 0.6 Eos # (Auto) 0.2 Baso # (Auto) 0.0 Abs Immat Gran (auto) 0.03 Absolute Neuts (auto) 4.5 Absolute Nucleated RBC 0.000 Nucleated RBC % (auto) 0.0 PT 19.7 H INR 1.7 H APTT 34.3 D-Dimer Anion Gap 14 Estim Creat Clear Calc 47.4 Estimated GFR 56 Random Glucose 148 H Calcium 8.7 D Iron 24 L TIBC 507 H % Saturation 5 L Unsat Iron Binding 483 Ferritin 4 L Troponin I High Sens B-Natriuretic Peptide Stool Occult Blood Coronavirus (PCR) Influenza Type A (PCR) Influenza Type B (PCR) RSV RNA Qual (PCR) Blood Type Antibody Screen Crossmatch 06/15/21 06/15/21 06/15/21 11:21 11:21 11:21 MCV MCH MCHC RDW Plt Count MPV Immature Gran % (Auto) Neut % (Auto) Lymph % (Auto) [place] % (Auto) Eos % (Auto) Baso % (Auto) Lymph # (Auto) [place] # (Auto) Eos # (Auto) Baso # (Auto) Abs Immat Gran (auto) Absolute Neuts (auto) Absolute Nucleated RBC Nucleated RBC % (auto) PT INR APTT D-Dimer 552 Anion Gap Estim Creat Clear Calc Estimated GFR Random Glucose Calcium Iron TIBC % Saturation Unsat Iron Binding Ferritin Troponin I High Sens 6.5 B-Natriuretic Peptide 621 H Stool Occult Blood Coronavirus (PCR) NEGATIVE Influenza Type A (PCR) NEGATIVE Influenza Type B (PCR) NEGATIVE RSV RNA Qual (PCR) NEGATIVE Blood Type Antibody Screen Crossmatch 06/15/21 06/15/21 11:36 11:54 MCV MCH MCHC RDW Plt Count MPV Immature Gran % (Auto) Neut % (Auto) Lymph % (Auto) [place] % (Auto) Eos % (Auto) Baso % (Auto) Lymph # (Auto) [place] # (Auto) Eos # (Auto) Baso # (Auto) Abs Immat Gran (auto) Absolute Neuts (auto) Absolute Nucleated RBC Nucleated RBC % (auto) PT INR APTT D-Dimer Anion Gap Estim Creat Clear Calc Estimated GFR Random Glucose Calcium Iron TIBC % Saturation Unsat Iron Binding Ferritin Troponin I High Sens B-Natriuretic Peptide Stool Occult Blood NEGATIVE Coronavirus (PCR) Influenza Type A (PCR) Influenza Type B (PCR) RSV RNA Qual (PCR) Blood Type A Positive Antibody Screen NEGATIVE Crossmatch See Detail Imaging Radiologist's Impressions: Impressions Chest X-Ray 06/15/21 10:59 IMPRESSION: No acute pulmonary process. Mild cardiomegaly. Mild spondylosis of dorsal spine. Assessment and Plan (1) Symptomatic anemia: Status: Acute This is an 85-year-old male with history of atrial fibrillation on Eliquis, hypertension, BPH, SWATHI who presents to the emergency department with dizziness, dyspnea, fatigue found to have symptomatic anemia Symptomatic anemia/iron deficiency anemia/presumed acute blood loss anemia Stool occult blood negative Significant drop in H/H from baseline. -transfuse 2 units RBCs -Hold Eliquis -GI consult -follow CBC Acute on chronic heart failure Received 1 dose of IV Lasix in the ED. will give additional dose between 2 units of blood -Evaluate further need for diuretics in a.m. -monitor Is&Os Atrial fibrillation -hold eliquis -continue metoprolol HTN -continue metoprolol, valsartan SWATHI -cpap dvt ppx - mechanical devices due to anemia Code status-full code Attending-Dr. Moon Quality Stroke Does the patient have a stroke diagnosis?: No VTE Prior VTE?: No VTE Risk Level:: Medical - moderate - high VTE Device Contraindication: N/A - Device Ordered VTE Drug Contraindication: Treatment Not Indicated
--- NOTE | 2021-06-15 14:19 | PM.EVENT ---
Event Note Date of Service: 06/15/21 Event Note: the patient was seen and evaluated with GALILEA Amaro. I agree with her note, assessment and plan with the following. In summary, the patient presented with dizziness and feeling tired with reported back pain that has partially improved for the last few days, dizziness became worse yesterday with weakness. denies chest pain, SOB, melena or bleeding but report having back pain that he was seeing a chiropracter for and has improved. In ED, Hb found to be 6.5 from baseline of 12 with iron stores with negative occult stool Acute on chronic blood loss anemia Symptomatic anemia Likely from GI loss CT abdomen negative for retroperitoneal bleed Transfusion with goal above 8 GI evaluation and endoscopies Rest of evaluations by PA note.
[2021-06-15] MEDS: Metoprolol Succinate ER 100 MG TAB.ER.24H PO (17:35)
[2021-06-15] MEDS: 0.9 % Sodium Chloride Flush 3 ML SYRINGE IVFLUSH ×2 (17:35→23:23)
[2021-06-15 18:07] LABS: Lactate Dehydrogenase 168 U/L (118-273)
[2021-06-15] MEDS: Furosemide 20 MG/2 ML VIAL 40 MG IVPUSH (18:07)
[2021-06-15] MEDS: Valsartan 160 MG TABLET PO (21:33)
[2021-06-15] MEDS: traZODone HCL 25 MG HALFTAB PO (21:34)
[2021-06-15] MEDS: Ascorbic Acid 500 MG TABLET PO (21:34)
[2021-06-16] VITALS (7 sets, daily range): BP systolic 109–136; BP diastolic 54–64; PULSE 56–81; RESP 15–20; TEMP 36.1–37.6; O2SAT 95–99
[2021-06-16] MEDS: diphenhydrAMINE HCL 50 MG/ML VIAL 25 MG IVPUSH (00:52)
[2021-06-16 04:38] LABS: MANUAL DIFF FLAG NO
--- NOTE | 2021-06-16 04:39 | PC.NURSE ---
Pt finished second unit of pRBC's at 2130 last night. NO signs or symptoms of reaction. Pt states he feels better. No further dizziness. Vital signs stable. Monitor shows afib, rate 70's, no vent ectopy. His only complaint was not being able to sleep. Dr Elder ordered trazadone with no to little effect. Benedryl IV ordered and given with some effect but pt is having frequency to void and has to stand up. He knows to call for help. No dizziness with position change. Pt did ambulate to BR and passed normal brown formed BM. No blood in stool. No nausea noted. Pt denies pain.
[2021-06-16 05:03] LABS: Basophils Absolute Auto 0.1 X10*3/uL (0.0-0.2); Basophils Percent Auto 0.6 % (0-2); Eosinophils Absolute Auto 0.2 X10*3/uL (0.0-0.4); Eosinophils Percent Auto 2.9 % (0-4); Hematocrit 25.2 % (42-52); Imm Gran Abs Auto 0.03 X10*3/uL (0.00-0.03); Imm Gran Pct Auto 0.4 % (0.0-0.4); Immature Retic Fraction 13.4 % (2.3-13.4); Lymphocytes Percent Auto 12.6 % (20-40); Mean Corpuscular HGB Conc 31.7 g/dl (31.0-36.0); Mean Corpuscular Hemoglobin 26.4 pg (27.0-33.0); Mean Corpuscular Volume 83.2 fL (80-98); Mean Platelet Volume 9.7 fL (9.4-12.4); Monocytes Absolute Auto 0.7 X10*3/uL (0.1-1.2); Monocytes Percent Auto 9.3 % (2-11); NRBC Pct Auto 0.4 /100WBC (0.0-0.2); Neutrophils Absolute Auto 5.8 X10*3/uL (2.0-8.3); Neutrophils Percent Auto 74.2 % (45-73); Platelet Count 247 X10*3/uL (160-400); Red Blood Count 3.03 X10*6/uL (4.60-5.80); Red Cell Distribution Width 14.3 % (11.0-16.0); Retic HGB Equivalent 20.4 pg (30.0-35.0); Reticulocyte Percent 2.2 % (0.5-1.8); Reticulocytes Absolute 0.066 X10*6/uL (0.026-0.095); White Blood Count 7.8 X10*3/uL (4.8-10.8)
[2021-06-16 05:11] LABS: Anion Gap 15 (12-20); Blood Urea Nitrogen 18 mg/dL (9-16); Calcium 8.6 mg/dL (8.4-10.2); Carbon Dioxide 24 mmol/L (22-29); Chloride 101 mmol/L (96-108); Creatinine Clr Calc Pharmacy 47.6; Estimated Glomerular Filt Rate 57; Glucose Random 133 mg/dL (60-115); Potassium 3.8 mmol/L (3.3-5.1); Sodium 136 mmol/L (135-145)
[2021-06-16 06:55] LABS: Vitamin B12 378 pg/mL (200-900)
[2021-06-16] MEDS: Valsartan 160 MG TABLET PO ×2 (08:46→20:19)
[2021-06-16] MEDS: Furosemide 20 MG TABLET PO (08:48)
[2021-06-16] MEDS: 0.9 % Sodium Chloride Flush 3 ML SYRINGE IVFLUSH ×2 (08:48→16:57)
[2021-06-16] MEDS: Ascorbic Acid 500 MG TABLET PO ×2 (08:48→20:20)
[2021-06-16] MEDS: allopurinoL 300 MG TABLET PO (08:48)
--- NOTE | 2021-06-16 10:12 | MHC.CM.PN ---
met with tp who lives with ,he explains they had no servceis prior to admission and do not anticipate needing services when she is dcd they were managing well on their own ..pt has transportation h ome
[2021-06-16] MEDS: Sodium Ferric Gluconat/Sucrose 125 MG in 0.9 % Sodium Chloride 100 ML 100 MG IV (10:30)
--- NOTE | 2021-06-16 13:04 | P.PNIM_ITS ---
Subjective Subjective Date of Service: 06/16/21 Interval History: the patient was seen and evaluated this morning Laying in bed, feels comfortable Hemoglobin improved to 8 after 2 units transfusion Denies any fever, chills or shortness of breath No reported other overnight events. Systemic review: No fever, chills or weakness No chest pain, palpitation No shortness of breath or coughing No abdominal pain, nausea or vomiting No urinary symptoms No any rash or wounds Physical Exam Vital Signs: Vital Signs: Last Vital Signs Temp 99.1 F 06/16/21 11:05 Pulse 56 06/16/21 11:05 Resp 20 06/16/21 11:05 BP 112/54 L 06/16/21 11:05 Pulse Ox 97 06/16/21 11:05 Body Mass Index 31.1 Const: Other: Constitutional : Alert, oriented, not in distress Neck : Normal inspection, Supple Cardiovascular : RRR, S1 S2, no lower extremity edema Respiratory : Good bilateral air entry, no crackles, wheezes or rhonchi Gastrointestinal: soft, lax, Normal bowel sounds, Non tender Skin : Warm, Dry Neurological : Alert & oriented x3, No focal deficit Objective Data Current Medications Generic Name Dose Route Start Last Admin Trade Name Freq PRN Reason Stop Dose Admin Acetaminophen 650 mg 06/15/21 16:39 Acetaminophen 325 Mg Tablet PO Q6H PRN Pain, Mild (Pain Scale 1-3) Allopurinol 300 mg 06/16/21 09:00 06/16/21 08:48 Allopurinol 300 Mg Tablet PO 300 mg DAILY MICHEL Administration Ascorbic Acid 500 mg 06/15/21 21:00 06/16/21 08:48 Ascorbic Acid 500 Mg Tablet PO 500 mg BID MICHEL Administration Docusate Sodium 100 mg 06/15/21 16:39 Docusate Sodium 100 Mg Capsule PO DAILY PRN Constipation Furosemide 20 mg 06/16/21 09:00 06/16/21 08:48 Furosemide 20 Mg Tablet PO 20 mg DAILY [facility] Administration Protocol Ferric Sodium Gluconate 110 mls @ 100 mls/hr 06/16/21 10:30 06/16/21 12:07 Complex 125 mg/ Sodium IV 06/18/21 10:05 Infused Chloride DAILY [facility] Infusion Metoprolol Succinate 100 mg 06/15/21 17:00 06/15/21 17:35 Metoprolol Succinate Er 100 Mg Tab.Er.24h PO 100 mg DAILY@1700 [facility] Administration Protocol Ondansetron HCl 4 mg 06/15/21 16:39 Ondansetron Hcl 4 Mg/2 Ml Vial IVPUSH Q8H PRN Nausea and Vomiting Sodium Chloride 3 ml 06/15/21 16:39 06/16/21 08:48 0.9 % Sodium Chloride Flush 3 Ml Syringe IVFLUSH 3 ml QSHIFT MICHEL Administration Valsartan 160 mg 06/15/21 21:00 06/16/21 08:46 Valsartan 160 Mg Tablet PO 160 mg BID MICHEL Administration Labs CBC & Chem 7: 06/16/21 04:33 06/16/21 04:33 Labs: Laboratory Results - last 24 hr 06/15/21 06/15/21 06/15/21 11:20 11:21 11:21 MCV MCH MCHC RDW Plt Count MPV Immature Gran % (Auto) Neut % (Auto) Lymph % (Auto) [place] % (Auto) Eos % (Auto) Baso % (Auto) Lymph # (Auto) [place] # (Auto) Eos # (Auto) Baso # (Auto) Abs Immat Gran (auto) Absolute Neuts (auto) Absolute Nucleated RBC Nucleated RBC % (auto) Smear Path Review SEE NOTE Absolute Retic Percent Retic Immature Retic Fraction Retic Hgb Equivalent Anion Gap Estim Creat Clear Calc Estimated GFR Random Glucose Calcium Iron 24 L TIBC 507 H % Saturation 5 L Unsat Iron Binding 483 Ferritin 4 L Lactate Dehydrogenase 168 Troponin I High Sens Vitamin B12 Coronavirus (PCR) NEGATIVE Influenza Type A (PCR) NEGATIVE Influenza Type B (PCR) NEGATIVE RSV RNA Qual (PCR) NEGATIVE Blood Type Antibody Screen Crossmatch 06/15/21 06/15/21 06/15/21 11:21 11:54 16:20 MCV MCH MCHC RDW Plt Count MPV Immature Gran % (Auto) Neut % (Auto) Lymph % (Auto) [place] % (Auto) Eos % (Auto) Baso % (Auto) Lymph # (Auto) [place] # (Auto) Eos # (Auto) Baso # (Auto) Abs Immat Gran (auto) Absolute Neuts (auto) Absolute Nucleated RBC Nucleated RBC % (auto) Smear Path Review Absolute Retic Percent Retic Immature Retic Fraction Retic Hgb Equivalent Anion Gap Estim Creat Clear Calc Estimated GFR Random Glucose Calcium Iron TIBC % Saturation Unsat Iron Binding Ferritin Lactate Dehydrogenase Troponin I High Sens 9.0 Vitamin B12 378 Coronavirus (PCR) Influenza Type A (PCR) Influenza Type B (PCR) RSV RNA Qual (PCR) Blood Type A Positive Antibody Screen NEGATIVE Crossmatch See Detail 06/16/21 06/16/21 06/16/21 04:33 04:33 04:33 MCV 83.2 MCH 26.4 L MCHC 31.7 RDW 14.3 Plt Count 247 MPV 9.7 Immature Gran % (Auto) 0.4 Neut % (Auto) 74.2 H Lymph % (Auto) 12.6 L [place] % (Auto) 9.3 Eos % (Auto) 2.9 Baso % (Auto) 0.6 Lymph # (Auto) 1.0 L [place] # (Auto) 0.7 Eos # (Auto) 0.2 Baso # (Auto) 0.1 Abs Immat Gran (auto) 0.03 Absolute Neuts (auto) 5.8 Absolute Nucleated RBC 0.030 H Nucleated RBC % (auto) 0.4 H Smear Path Review Absolute Retic 0.066 Percent Retic 2.2 H Immature Retic Fraction 13.4 Retic Hgb Equivalent 20.4 L Anion Gap 15 Estim Creat Clear Calc 47.6 Estimated GFR 57 Random Glucose 133 H Calcium 8.6 Iron TIBC % Saturation Unsat Iron Binding Ferritin Lactate Dehydrogenase Troponin I High Sens Vitamin B12 Coronavirus (PCR) Influenza Type A (PCR) Influenza Type B (PCR) RSV RNA Qual (PCR) Blood Type Antibody Screen Crossmatch Assessment and Plan (1) Symptomatic anemia: Status: Acute (2) Acute on chronic anemia: Status: Acute Assessment and Plan: This is an 85-year-old male with history of atrial fibrillation on Eliquis, hypertension, BPH, SWATHI who presents to the emergency department with dizziness, dyspnea, fatigue found to have symptomatic anemia Symptomatic anemia/iron deficiency anemia/presumed acute blood loss anemia Stool occult blood negative Hemoglobin of 8 after 2 units transfusion Continue to hold Eliquis GI input appreciated, to do endoscopy on Wednesday Monitor H&H Chronic diastolic heart failure Received Lasix in the emergency with transfusions Continue home dose Lasix monitor Is&Os Atrial fibrillation hold eliquis continue metoprolol HTN continue metoprolol, valsartan SWATHI cpap dvt ppx mechanical devices due to anemia Quality Stroke Does the patient have a stroke diagnosis?: No VTE Prior VTE?: No VTE Risk Level:: Medical - moderate - high VTE Device Contraindication: N/A - Device Ordered VTE Drug Contraindication: Treatment Not Indicated
[2021-06-16] MEDS: Metoprolol Succinate ER 100 MG TAB.ER.24H PO (16:57)
--- NOTE | 2021-06-16 17:22 | P.PNGI_ITS ---
Subjective Subjective Date of Service: 06/16/21 Interval History: Course noted. Patient feels better since admission and the transfusions. His and son are present. He denies any GI symptoms currently nor any signs of bleeding at home. Critical Care Time (minutes): 0 Physical Exam Vital Signs: Vital Signs: Last Vital Signs Temp 98.3 F 06/16/21 15:08 Pulse 66 06/16/21 15:08 Resp 15 06/16/21 15:08 BP 114/54 L 06/16/21 15:08 Pulse Ox 98 06/16/21 15:08 Body Mass Index 31.1 Const: Other: Comfortable and alert Nutritional Appearance: well nourished Eyes: Sclerae: sclerae normal GI: Other: Soft and nontender Inspection: Yes normal to inspection Objective Data Labs CBC & Chem 7: 06/16/21 04:33 06/16/21 04:33 Labs: Laboratory Results - last 24 hr 06/15/21 06/15/21 06/15/21 11:20 11:21 11:21 WBC RBC Hgb Hct MCV MCH MCHC RDW Plt Count MPV Immature Gran % (Auto) Neut % (Auto) Lymph % (Auto) [place] % (Auto) Eos % (Auto) Baso % (Auto) Lymph # (Auto) [place] # (Auto) Eos # (Auto) Baso # (Auto) Abs Immat Gran (auto) Absolute Neuts (auto) Absolute Nucleated RBC Nucleated RBC % (auto) Smear Path Review SEE NOTE Absolute Retic Percent Retic Immature Retic Fraction Retic Hgb Equivalent Sodium Potassium Chloride Carbon Dioxide Anion Gap BUN Creatinine Estim Creat Clear Calc Estimated GFR Random Glucose Calcium Lactate Dehydrogenase 168 Vitamin B12 378 Blood Type Antibody Screen Crossmatch 06/15/21 06/16/21 06/16/21 11:54 04:33 04:33 WBC 7.8 RBC 3.03 L Hgb 8.0 L D Hct 25.2 L MCV 83.2 MCH 26.4 L MCHC 31.7 RDW 14.3 Plt Count 247 MPV 9.7 Immature Gran % (Auto) 0.4 Neut % (Auto) 74.2 H Lymph % (Auto) 12.6 L [place] % (Auto) 9.3 Eos % (Auto) 2.9 Baso % (Auto) 0.6 Lymph # (Auto) 1.0 L [place] # (Auto) 0.7 Eos # (Auto) 0.2 Baso # (Auto) 0.1 Abs Immat Gran (auto) 0.03 Absolute Neuts (auto) 5.8 Absolute Nucleated RBC 0.030 H Nucleated RBC % (auto) 0.4 H Smear Path Review Absolute Retic Percent Retic Immature Retic Fraction Retic Hgb Equivalent Sodium 136 Potassium 3.8 Chloride 101 Carbon Dioxide 24 Anion Gap 15 BUN 18 H Creatinine 1.22 Estim Creat Clear Calc 47.6 Estimated GFR 57 Random Glucose 133 H Calcium 8.6 Lactate Dehydrogenase Vitamin B12 Blood Type A Positive Antibody Screen NEGATIVE Crossmatch See Detail 06/16/21 04:33 WBC RBC Hgb Hct MCV MCH MCHC RDW Plt Count MPV Immature Gran % (Auto) Neut % (Auto) Lymph % (Auto) [place] % (Auto) Eos % (Auto) Baso % (Auto) Lymph # (Auto) [place] # (Auto) Eos # (Auto) Baso # (Auto) Abs Immat Gran (auto) Absolute Neuts (auto) Absolute Nucleated RBC Nucleated RBC % (auto) Smear Path Review Absolute Retic 0.066 Percent Retic 2.2 H Immature Retic Fraction 13.4 Retic Hgb Equivalent 20.4 L Sodium Potassium Chloride Carbon Dioxide Anion Gap BUN Creatinine Estim Creat Clear Calc Estimated GFR Random Glucose Calcium Lactate Dehydrogenase Vitamin B12 Blood Type Antibody Screen Crossmatch Procedures Date of Service Date of Service: 06/16/21 Progress Note: A&P Assessment and plan (1) Acute on chronic anemia: Status: Acute (2) Symptomatic anemia: Status: Acute Assessment and Plan: Imp: Iron deficiency anemia while on Eliquis. His stool was Heme-negative, but given that his last colonoscopy was in 2010 still need to R/O a GI source of intermittent blood loss such as a neoplasm, AVM's, silent PUD/gastritis, etc. Rec: EGD/Colonoscopy with MAC on 06/18. Full consent has been obtained for this, including risks of bleeding and perforation. F/U Hgb and transfuse PRN. D/W patient, , and son in detail. They are comfortable with this plan. Thanks Fall Risk Details Current Medications: Current Medications Generic Name Dose Route Start Last Admin Trade Name Freq PRN Reason Stop Dose Admin Acetaminophen 650 mg 06/15/21 16:39 Acetaminophen 325 Mg Tablet PO Q6H PRN Pain, Mild (Pain Scale 1-3) Allopurinol 300 mg 06/16/21 09:00 06/16/21 08:48 Allopurinol 300 Mg Tablet PO 300 mg DAILY MICHEL Administration Ascorbic Acid 500 mg 06/15/21 21:00 06/16/21 08:48 Ascorbic Acid 500 Mg Tablet PO 500 mg BID MICHEL Administration Docusate Sodium 100 mg 06/15/21 16:39 Docusate Sodium 100 Mg Capsule PO DAILY PRN Constipation Furosemide 20 mg 06/16/21 09:00 06/16/21 08:48 Furosemide 20 Mg Tablet PO 20 mg DAILY MICHEL Administration Protocol Ferric Sodium Gluconate 110 mls @ 100 mls/hr 06/16/21 10:30 06/16/21 12:07 Complex 125 mg/ Sodium IV 06/18/21 10:05 Infused Chloride DAILY [facility] Infusion Metoprolol Succinate 100 mg 06/15/21 17:00 06/16/21 16:57 Metoprolol Succinate Er 100 Mg Tab.Er.24h PO 100 mg DAILY@1700 [facility] Administration Protocol Ondansetron HCl 4 mg 06/15/21 16:39 Ondansetron Hcl 4 Mg/2 Ml Vial IVPUSH Q8H PRN Nausea and Vomiting Sodium Chloride 3 ml 06/15/21 16:39 06/16/21 16:57 0.9 % Sodium Chloride Flush 3 Ml Syringe IVFLUSH 3 ml QSHIFT [facility] Administration Valsartan 160 mg 06/15/21 21:00 06/16/21 08:46 Valsartan 160 Mg Tablet PO 160 mg BID MICHEL Administration Time Spent With Patient Time: Total time spent is greater than 50% in coordination of care (as documented) at patient's floor/unit and/or counseling patient: Time with patient: 15 - 24 minutes Quality Stroke Does the patient have a stroke diagnosis?: No VTE Prior VTE?: No VTE Risk Level:: Medical - moderate - high VTE Device Contraindication: N/A - Device Ordered VTE Drug Contraindication: Treatment Not Indicated
--- NOTE | 2021-06-16 23:14 | MHC.SHP ---
Pre-Procedural Eval Section A Date of Service: 06/18/21 The patient is an INPATIENT: Yes The History & Physical has been completed within 30 days and I have reviewed it.: Yes Section B Chief Complaint: symptomatic anemia Allergies: Allergies Allergy/AdvReac Type Severity Reaction Status Date / Time No Known Allergies Allergy Verified 01/14/21 10:01 Plan I have reviewed the history and physical and performed a pertinent physical examination on my patient. No changes have occurred unless specified.
[2021-06-17] VITALS (8 sets, daily range): BP systolic 121–147; BP diastolic 59–70; PULSE 60–72; RESP 18–20; TEMP 36.2–36.8; O2SAT 98–100
[2021-06-17] MEDS: 0.9 % Sodium Chloride Flush 3 ML SYRINGE IVFLUSH ×4 (00:53→20:03)
[2021-06-17 06:01] LABS: Hematocrit 26.4 % (42-52); Mean Corpuscular HGB Conc 30.3 g/dl (31.0-36.0); Mean Corpuscular Hemoglobin 25.3 pg (27.0-33.0); Mean Corpuscular Volume 83.5 fL (80-98); Mean Platelet Volume 9.7 fL (9.4-12.4); NRBC Pct Auto 0.4 /100WBC (0.0-0.2); Platelet Count 270 X10*3/uL (160-400); Red Blood Count 3.16 X10*6/uL (4.60-5.80); Red Cell Distribution Width 14.5 % (11.0-16.0); White Blood Count 8.5 X10*3/uL (4.8-10.8)
[2021-06-17] MEDS: Valsartan 160 MG TABLET PO ×2 (08:04→20:02)
[2021-06-17] MEDS: Ascorbic Acid 500 MG TABLET PO ×2 (08:04→20:02)
[2021-06-17] MEDS: Furosemide 20 MG TABLET PO (08:04)
[2021-06-17] MEDS: Sodium Ferric Gluconat/Sucrose 125 MG in 0.9 % Sodium Chloride 100 ML 100 MG IV (08:40)
--- NOTE | 2021-06-17 13:07 | HO.PM.IMPN ---
Subjective Subjective Date of Service: 06/17/21 Interval History: the patient was seen and evaluated this morning Laying in bed, feels comfortable Hemoglobin stable at 8 after 2 units transfusion No reported melena or bleeding Denies any fever, chills or shortness of breath No reported other overnight events. Systemic review: No fever, chills or weakness No chest pain, palpitation No shortness of breath or coughing No abdominal pain, nausea or vomiting No urinary symptoms No any rash or wounds Physical Exam Vital Signs: Vital Signs: Last Vital Signs Temp 98.1 F 06/17/21 11:32 Pulse 60 06/17/21 11:32 Resp 20 06/17/21 11:32 BP 147/65 H 06/17/21 11:32 Pulse Ox 99 06/17/21 11:32 Body Mass Index 31.1 Const: Other: Constitutional : Alert, oriented, not in distress Neck : Normal inspection, Supple Cardiovascular : RRR, S1 S2, no lower extremity edema Respiratory : Good bilateral air entry, no crackles, wheezes or rhonchi Gastrointestinal: soft, lax, Normal bowel sounds, Non tender Skin : Warm, Dry Neurological : Alert & oriented x3, No focal deficit Objective Data Current Medications Generic Name Dose Route Start Last Admin Trade Name Freq PRN Reason Stop Dose Admin Acetaminophen 650 mg 06/15/21 16:39 Acetaminophen 325 Mg Tablet PO Q6H PRN Pain, Mild (Pain Scale 1-3) Allopurinol 300 mg 06/16/21 09:00 06/16/21 08:48 Allopurinol 300 Mg Tablet PO 300 mg DAILY [facility]HEL Administration Ascorbic Acid 500 mg 06/15/21 21:00 06/17/21 08:04 Ascorbic Acid 500 Mg Tablet PO 500 mg BID MICHEL Administration Bisacodyl 10 mg 06/17/21 18:09 Bisacodyl 5 Mg Tablet. PO 06/17/21 18:10 ONCE ONE Docusate Sodium 100 mg 06/15/21 16:39 Docusate Sodium 100 Mg Capsule PO DAILY PRN Constipation Furosemide 20 mg 06/16/21 09:00 06/17/21 08:04 Furosemide 20 Mg Tablet PO 20 mg DAILY [facility] Administration Protocol Ferric Sodium Gluconate 110 mls @ 100 mls/hr 06/16/21 10:30 06/17/21 09:57 Complex 125 mg/ Sodium IV 06/18/21 10:05 Infused Chloride DAILY [facility] Infusion Metoprolol Succinate 100 mg 06/15/21 17:00 06/16/21 16:57 Metoprolol Succinate Er 100 Mg Tab.Er.24h PO 100 mg DAILY@1700 [facility] Administration Protocol Ondansetron HCl 4 mg 06/15/21 16:39 Ondansetron Hcl 4 Mg/2 Ml Vial IVPUSH Q8H PRN Nausea and Vomiting Polyethylene Glycol/Electrolytes 240 ml 06/17/21 15:15 Peg 3350/Na Sulf,Bicarb,Cl/Kcl 4,000 Ml Soln.Recon PO 06/17/21 17:56 Q10M MICHEL Sodium Chloride 3 ml 06/15/21 16:39 06/17/21 08:03 0.9 % Sodium Chloride Flush 3 Ml Syringe IVFLUSH 3 ml QSHIFT [facility] Administration Valsartan 160 mg 06/15/21 21:00 06/17/21 08:04 Valsartan 160 Mg Tablet PO 160 mg BID MICHEL Administration Labs CBC & Chem 7: 06/17/21 05:15 06/16/21 04:33 Labs: Laboratory Results - last 24 hr 06/17/21 05:15 MCV 83.5 MCH 25.3 L MCHC 30.3 L RDW 14.5 Plt Count 270 MPV 9.7 Absolute Nucleated RBC 0.030 H Nucleated RBC % (auto) 0.4 H Assessment and Plan (1) Acute on chronic anemia: Status: Acute Assessment and Plan: This is an 85-year-old male with history of atrial fibrillation on Eliquis, hypertension, BPH, SWATHI who presents to the emergency department with dizziness, dyspnea, fatigue found to have symptomatic anemia Symptomatic anemia/iron deficiency anemia/presumed acute blood loss anemia Stool occult blood negative Hemoglobin of 8 after 2 units transfusion Continue to hold Eliquis for 3 days before EGD GI input appreciated, to do endoscopy and colonoscopy tomorrow Monitor H&H Chronic diastolic heart failure Received Lasix in the emergency with transfusions Continue home dose Lasix monitor Is&Os Atrial fibrillation hold eliquis continue metoprolol HTN continue metoprolol, valsartan SWATHI cpap dvt ppx mechanical devices due to anemia Quality Stroke Does the patient have a stroke diagnosis?: No VTE Prior VTE?: No VTE Risk Level:: Medical - moderate - high VTE Device Contraindication: N/A - Device Ordered VTE Drug Contraindication: Treatment Not Indicated
[2021-06-17] MEDS: PEG 3350/Na Sulf,Bicarb,Cl/KCL 4,000 ML SOLN.RECON 240 ML PO (15:08)
[2021-06-17] MEDS: PEG 3350/Na Sulf,Bicarb,Cl/KCL 4,000 ML SOLN.RECON 4000 ML PO (16:00)
[2021-06-17] MEDS: Metoprolol Succinate ER 100 MG TAB.ER.24H PO (17:26)
[2021-06-17] MEDS: bisacodyL 5 MG TABLET.DR 10 MG PO (17:26)
[2021-06-18] VITALS (9 sets, daily range): BP systolic 107–157; BP diastolic 51–72; PULSE 57–76; RESP 14–22; TEMP 35.6–37.2; O2SAT 95–100; BMI 30.7
[2021-06-18 06:28] LABS: Hematocrit 26.8 % (42-52); Hemoglobin 8.3 g/dl (14.0-18.0); Mean Platelet Volume 9.8 fL (9.4-12.4); NRBC Pct Auto 0.3 /100WBC (0.0-0.2); Platelet Count 271 X10*3/uL (160-400); Red Blood Count 3.19 X10*6/uL (4.60-5.80); Red Cell Distribution Width 14.8 % (11.0-16.0); White Blood Count 7.9 X10*3/uL (4.8-10.8)
--- NOTE | 2021-06-18 06:35 | PC.NURSE ---
PATIENT TRANSFERRED VIA WHEELCHAIR BY [facility] STOREHOUSE CLERK TO [facility] FOR PLANNED AM PROCEDURE. REPORT GIVEN TO TOBIN VARMA, PATIENT TO BE THERE FOR 629. PT VOIDED, CLEANSED, AND AGREEABLE, APPROPRIATE, AND AWARE OF PLANNED COLONOSCOPY AND UPPER ENDOSCOPY.
[2021-06-18 06:56] LABS: Anion Gap 13 (12-20); Blood Urea Nitrogen 11 mg/dL (9-16); Calcium 8.8 mg/dL (8.4-10.2); Carbon Dioxide 26 mmol/L (22-29); Chloride 102 mmol/L (96-108); Creatinine Clr Calc Pharmacy 69.1; Estimated Glomerular Filt Rate > 60; Glucose Fasting 108 mg/dL (60-99); Potassium 3.8 mmol/L (3.3-5.1); Sodium 137 mmol/L (135-145)
[2021-06-18] MEDS: Lactated Ringers 1,000 ML 50 ML IVCONT (07:13)
--- NOTE | 2021-06-18 07:23 | P.CONAN_ITS ---
[facility] Active Problems Active Problems: All Active Problems (Updated 06/16/21 @ 13:05 by Yulissa giles MD) Acute on chronic anemia (Acute) Toxic metabolic encephalopathy (Acute) Dermatitis (Acute) Symptomatic anemia (Acute) Chronic anticoagulation (Acute) Afib (Acute) Past Medical History Medical History Afib CHF (congestive heart failure) Hypertension Sleep apnea Functional capacity: independent ambulation Family History Family History Other HTN (hypertension) Surgical History Surgical History H/O hand surgery History of Problems with Anesthesia: No Social History Social History Household Members: Spouse Housing: House Do you presently have visiting nurse or other home services: No Alcohol intake: current Alcohol intake frequency: holidays/special occasions only Patient Tobacco Use Status: Never used Tobacco Smoked in Last 30 Days: No Second Hand Smoke Exposure: No Use of substances other than those prescribed or required for medical reasons: No Currently Displaying Signs/Symptoms of Drug Intoxication Withdrawal: No Have you been hit, kicked, punched, or otherwise hurt by someone within the past year? If so, by whom?: No Do you feel safe in your current relationship?: No Is there a partner from a previous relationship who is making you feel unsafe now?: No Are you made to feel afraid or neglected: No Are you DNR?: No Advance Directives: Yes Advance Directives Information Provided: Yes Advance Directives on File: No Advance Directives Date on File: 06/15/21 Do you have thoughts of harming others: None Do you have a plan to hurt others: No Plan Recently lost weight without trying: No How much weight loss: Not applicable Eating poorly because of decreased appetite: Yes Nutrition screen score: 1 Nutrition Risks: No Nutritional Risk Poor oral hygiene: No service: Yes Current occupational status: retired Meds Allergies Allergy/AdvReac Type Severity Reaction Status Date / Time No Known Allergies Allergy Verified 01/14/21 10:01 Active Medications: Current Medications Generic Name Dose Route Start Last Admin Trade Name Freq PRN Reason Stop Dose Admin Acetaminophen 650 mg 06/15/21 16:39 Acetaminophen 325 Mg Tablet PO Q6H PRN Pain, Mild (Pain Scale 1-3) Allopurinol 300 mg 06/16/21 09:00 06/16/21 08:48 Allopurinol 300 Mg Tablet PO 300 mg DAILY MICHEL Administration Ascorbic Acid 500 mg 06/15/21 21:00 06/17/21 20:02 Ascorbic Acid 500 Mg Tablet PO 500 mg BID MICHEL Administration Docusate Sodium 100 mg 06/15/21 16:39 Docusate Sodium 100 Mg Capsule PO DAILY PRN Constipation Furosemide 20 mg 06/16/21 09:00 06/17/21 08:04 Furosemide 20 Mg Tablet PO 20 mg DAILY [facility] Administration Protocol Ferric Sodium Gluconate 110 mls @ 100 mls/hr 06/16/21 10:30 06/17/21 09:57 Complex 125 mg/ Sodium IV 06/18/21 10:05 Infused Chloride DAILY [facility] Infusion Lactated Ringer's 1,000 mls @ 50 mls/hr 06/18/21 07:15 06/18/21 07:13 Lr IVCONT 50 mls/hr .Q20H MICHEL Administration Metoprolol Succinate 100 mg 06/15/21 17:00 06/17/21 17:26 Metoprolol Succinate Er 100 Mg Tab.Er.24h PO 100 mg DAILY@1700 [facility] Administration Protocol Ondansetron HCl 4 mg 06/15/21 16:39 Ondansetron Hcl 4 Mg/2 Ml Vial IVPUSH Q8H PRN Nausea and Vomiting Sodium Chloride 3 ml 06/15/21 16:39 06/17/21 20:03 0.9 % Sodium Chloride Flush 3 Ml Syringe IVFLUSH 3 ml QSHIFT [facility] Administration Valsartan 160 mg 06/15/21 21:00 06/17/21 20:02 Valsartan 160 Mg Tablet PO 160 mg BID [facility] Administration Home Medications Medication Instructions Recorded Confirmed Last Taken Type Daily Vitamin 1 cap PO DAILY 01/04/21 06/15/21 01/03/21 History Move Free Joint Health 1 tab PO DAILY 01/04/21 06/15/21 01/03/21 History Zyrtec 5 mg PO DAILY 01/04/21 06/15/21 01/03/21 History allopurinol 300 mg tablet 300 mg PO DAILY 01/04/21 06/15/21 01/03/21 History (Zyloprim) apixaban 5 mg tablet (Eliquis) 5 mg PO BID 01/04/21 06/15/21 01/03/21 History ascorbic acid (vitamin C) 500 mg 500 mg PO BID 01/04/21 06/15/21 01/03/21 History tablet flaxseed 1,000 mg capsule 1,000 mg PO DAILY 01/04/21 06/15/21 01/03/21 History furosemide 20 mg tablet (Lasix) 20 mg PO DAILY 01/04/21 06/15/21 01/03/21 History metoprolol succinate 100 mg 100 mg PO DAILY@1700 01/04/21 06/15/21 01/03/21 History tablet,extended release 24 hr (Toprol XL) valsartan 160 mg capsule 160 mg PO BID 01/04/21 06/15/21 01/03/21 History Exam Exam Date and Time: June 18, 2021 0723 Height,Weight and Vital Signs: Height 5 ft 6 in Weight 86.183 kg Last Vital Signs Temp 998.2 F H 06/18/21 06:53 Pulse 57 06/18/21 06:53 Resp 16 06/18/21 06:53 BP 135/62 06/18/21 06:53 Pulse Ox 100 06/18/21 06:53 Pertinent Lab Results Pertinent Lab Results: Laboratory Tests 06/15/21 06/15/21 06/15/21 11:20 11:20 11:21 WBC 6.9 RBC 2.57 L D Hgb 6.5 L* D Hct 21.2 L D MCV 82.5 MCH 25.3 L MCHC 30.7 L RDW 13.9 Plt Count 253 D MPV 9.3 L Immature Gran % (Auto) 0.4 Neut % (Auto) 65.1 Lymph % (Auto) 22.8 [place] % (Auto) 9.1 Eos % (Auto) 2.3 Baso % (Auto) 0.3 Lymph # (Auto) 1.6 [place] # (Auto) 0.6 Eos # (Auto) 0.2 Baso # (Auto) 0.0 Abs Immat Gran (auto) 0.03 Absolute Neuts (auto) 4.5 Absolute Nucleated RBC 0.000 Nucleated RBC % (auto) 0.0 Smear Path Review SEE NOTE Absolute Retic Percent Retic Immature Retic Fraction Retic Hgb Equivalent PT 19.7 H INR 1.7 H APTT 34.3 D-Dimer Sodium 131 L Potassium 4.5 Chloride 100 Carbon Dioxide 22 Anion Gap 14 BUN 17 H Creatinine 1.23 Estim Creat Clear Calc 47.4 Estimated GFR 56 Random Glucose 148 H Fasting Glucose Calcium 8.7 D Iron 24 L TIBC 507 H % Saturation 5 L Unsat Iron Binding 483 Ferritin 4 L Lactate Dehydrogenase 168 Troponin I High Sens B-Natriuretic Peptide Vitamin B12 Stool Occult Blood Coronavirus (PCR) Influenza Type A (PCR) Influenza Type B (PCR) RSV RNA Qual (PCR) Blood Type Antibody Screen Crossmatch 06/15/21 06/15/21 06/15/21 11:21 11:21 11:21 WBC RBC Hgb Hct MCV MCH MCHC RDW Plt Count MPV Immature Gran % (Auto) Neut % (Auto) Lymph % (Auto) [place] % (Auto) Eos % (Auto) Baso % (Auto) Lymph # (Auto) [place] # (Auto) Eos # (Auto) Baso # (Auto) Abs Immat Gran (auto) Absolute Neuts (auto) Absolute Nucleated RBC Nucleated RBC % (auto) Smear Path Review Absolute Retic Percent Retic Immature Retic Fraction Retic Hgb Equivalent PT INR APTT D-Dimer 552 Sodium Potassium Chloride Carbon Dioxide Anion Gap BUN Creatinine Estim Creat Clear Calc Estimated GFR Random Glucose Fasting Glucose Calcium Iron TIBC % Saturation Unsat Iron Binding Ferritin Lactate Dehydrogenase Troponin I High Sens 6.5 B-Natriuretic Peptide 621 H Vitamin B12 Stool Occult Blood Coronavirus (PCR) NEGATIVE Influenza Type A (PCR) NEGATIVE Influenza Type B (PCR) NEGATIVE RSV RNA Qual (PCR) NEGATIVE Blood Type Antibody Screen Crossmatch 06/15/21 06/15/21 06/15/21 11:21 11:36 11:54 WBC RBC Hgb Hct MCV MCH MCHC RDW Plt Count MPV Immature Gran % (Auto) Neut % (Auto) Lymph % (Auto) [place] % (Auto) Eos % (Auto) Baso % (Auto) Lymph # (Auto) [place] # (Auto) Eos # (Auto) Baso # (Auto) Abs Immat Gran (auto) Absolute Neuts (auto) Absolute Nucleated RBC Nucleated RBC % (auto) Smear Path Review Absolute Retic Percent Retic Immature Retic Fraction Retic Hgb Equivalent PT INR APTT D-Dimer Sodium Potassium Chloride Carbon Dioxide Anion Gap BUN Creatinine Estim Creat Clear Calc Estimated GFR Random Glucose Fasting Glucose Calcium Iron TIBC % Saturation Unsat Iron Binding Ferritin Lactate Dehydrogenase Troponin I High Sens B-Natriuretic Peptide Vitamin B12 378 Stool Occult Blood NEGATIVE Coronavirus (PCR) Influenza Type A (PCR) Influenza Type B (PCR) RSV RNA Qual (PCR) Blood Type A Positive Antibody Screen NEGATIVE Crossmatch See Detail 06/15/21 06/16/21 06/16/21 16:20 04:33 04:33 WBC 7.8 RBC 3.03 L Hgb 8.0 L D Hct 25.2 L MCV 83.2 MCH 26.4 L MCHC 31.7 RDW 14.3 Plt Count 247 MPV 9.7 Immature Gran % (Auto) 0.4 Neut % (Auto) 74.2 H Lymph % (Auto) 12.6 L [place] % (Auto) 9.3 Eos % (Auto) 2.9 Baso % (Auto) 0.6 Lymph # (Auto) 1.0 L [place] # (Auto) 0.7 Eos # (Auto) 0.2 Baso # (Auto) 0.1 Abs Immat Gran (auto) 0.03 Absolute Neuts (auto) 5.8 Absolute Nucleated RBC 0.030 H Nucleated RBC % (auto) 0.4 H Smear Path Review Absolute Retic Percent Retic Immature Retic Fraction Retic Hgb Equivalent PT INR APTT D-Dimer Sodium 136 Potassium 3.8 Chloride 101 Carbon Dioxide 24 Anion Gap 15 BUN 18 H Creatinine 1.22 Estim Creat Clear Calc 47.6 Estimated GFR 57 Random Glucose 133 H Fasting Glucose Calcium 8.6 Iron TIBC % Saturation Unsat Iron Binding Ferritin Lactate Dehydrogenase Troponin I High Sens 9.0 B-Natriuretic Peptide Vitamin B12 Stool Occult Blood Coronavirus (PCR) Influenza Type A (PCR) Influenza Type B (PCR) RSV RNA Qual (PCR) Blood Type Antibody Screen Crossmatch 06/16/21 06/17/21 06/18/21 04:33 05:15 05:15 WBC 8.5 RBC 3.16 L Hgb 8.0 L Hct 26.4 L MCV 83.5 MCH 25.3 L MCHC 30.3 L RDW 14.5 Plt Count 270 MPV 9.7 Immature Gran % (Auto) Neut % (Auto) Lymph % (Auto) [place] % (Auto) Eos % (Auto) Baso % (Auto) Lymph # (Auto) [place] # (Auto) Eos # (Auto) Baso # (Auto) Abs Immat Gran (auto) Absolute Neuts (auto) Absolute Nucleated RBC 0.030 H Nucleated RBC % (auto) 0.4 H Smear Path Review Absolute Retic 0.066 Percent Retic 2.2 H Immature Retic Fraction 13.4 Retic Hgb Equivalent 20.4 L PT INR APTT D-Dimer Sodium 137 Potassium 3.8 Chloride 102 Carbon Dioxide 26 Anion Gap 13 BUN 11 Creatinine 0.84 Estim Creat Clear Calc 69.1 Estimated GFR > 60 Random Glucose Fasting Glucose 108 H Calcium 8.8 Iron TIBC % Saturation Unsat Iron Binding Ferritin Lactate Dehydrogenase Troponin I High Sens B-Natriuretic Peptide Vitamin B12 Stool Occult Blood Coronavirus (PCR) Influenza Type A (PCR) Influenza Type B (PCR) RSV RNA Qual (PCR) Blood Type Antibody Screen Crossmatch 06/18/21 05:15 WBC 7.9 RBC 3.19 L Hgb 8.3 L Hct 26.8 L MCV 84.0 MCH 26.0 L MCHC 31.0 RDW 14.8 Plt Count 271 MPV 9.8 Immature Gran % (Auto) Neut % (Auto) Lymph % (Auto) [place] % (Auto) Eos % (Auto) Baso % (Auto) Lymph # (Auto) [place] # (Auto) Eos # (Auto) Baso # (Auto) Abs Immat Gran (auto) Absolute Neuts (auto) Absolute Nucleated RBC 0.020 H Nucleated RBC % (auto) 0.3 H Smear Path Review Absolute Retic Percent Retic Immature Retic Fraction Retic Hgb Equivalent PT INR APTT D-Dimer Sodium Potassium Chloride Carbon Dioxide Anion Gap BUN Creatinine Estim Creat Clear Calc Estimated GFR Random Glucose Fasting Glucose Calcium Iron TIBC % Saturation Unsat Iron Binding Ferritin Lactate Dehydrogenase Troponin I High Sens B-Natriuretic Peptide Vitamin B12 Stool Occult Blood Coronavirus (PCR) Influenza Type A (PCR) Influenza Type B (PCR) RSV RNA Qual (PCR) Blood Type Antibody Screen Crossmatch Airway Mallampati Class: II TM Dist: >3cm Neck ROM: Full Loose/Missing/Broken Teeth: Yes, Upper and Lower Heart: irreg irreg rhythm Lungs: CTA Assessment and Plan Assessment Anesthesia Assessment: Anesthesia Plan Discussed and Chart Reviewed Final Anesthetic Review History of Problems with Anesthesia: No NPO: Yes ASA Class: III Final Preanesthetic Review: Meds/Allgs Chart Reviewed, Consent Obtained/Reviewed and Anes Risks/Benef Reviewed Patient Risk: Intermediate Procedure Risk: Intermediate Anesthetic Plan Anesthetic Plan: MAC: Disposition: Standard PACU
--- NOTE | 2021-06-18 08:50 | P.EN_ITS ---
Event Note Date of Service: 06/18/21 Event Note: GI-Full note dictated 1.EGD Erosive gastritis and erosive duodenitis-antrum bx x 3 Hiatal hernia and reflux esophagitis 2. Colonoscopy to the cecum with bx/removal of polyp <10mm transverse colon polyp biopsied and removed Sigmoid diverticulosis Internal hemorrhoids Rec: Oral PPI residential Oral Iron Hold blood thinners for 2 weeks No aspirin/NSAIDs residential Advance diet Treat Hpylori if + D/W family
--- NOTE | 2021-06-18 09:20 | OP_ITS ---
SURGEON: Jason Noland MD INDICATIONS: The patient presents for evaluation of anemia with iron deficiency. Full consent was obtained from him for both procedures, including risks of bleeding and perforation. PREOPERATIVE DIAGNOSIS: Iron deficiency anemia. POSTOPERATIVE DIAGNOSIS: PROCEDURE PERFORMED: ESTIMATED BLOOD LOSS: COMPLICATIONS: ANESTHESIA: Monitored anesthesia care. ASSISTANTS: SPECIMENS: POSTOPERATIVE DIAGNOSES: Iron deficiency anemia, erosive gastritis, erosive duodenitis, hiatal hernia, and esophagitis, colon polyp, diverticulosis and internal hemorrhoids. DESCRIPTION OF PROCEDURE: The patient was placed in the left lateral decubitus position. The Olympus video gastroscope was passed in the posterior oropharynx and upper esophagus under direct vision. The scope was passed slowly into the distal esophagus. The gastroesophageal junction appeared at 36 cm. There was some evidence of inflammation, edema, and less than 10 mm erosions. There was no stricture, mass, nor ulceration. The scope entered into the stomach. There was a small to moderate-sized hiatal hernia. The scope was advanced to pylorus. The duodenum was cannulated to the descending portion. The duodenum including the bulb was carefully inspected. The duodenum including the bulb had evidence of erosions and edema, but no ulceration or bleeding. The scope was withdrawn back into the stomach. The gastric antrum had areas of edema and erythema. There was good peristalsis. The scope was retroflexed visualizing the proximal stomach carefully, which revealed evidence of erosive gastritis, but there was no evidence of any mass, ulceration, nor bleeding. The scope was straightened. Biopsies were obtained from the gastric antrum. Scope was withdrawn back to the esophagus. Proximal to the EG junction at 36 cm, the esophageal mucosa appeared normal. The scope was withdrawn from the patient. He was turned around for the colonoscopy. The digital rectal exam revealed no abnormalities. The Olympus video pediatric colonoscope was entered into the rectum and advanced easily to the cecum. Once in the cecum, I did identify normal-appearing cecal pouch with appendiceal orifice and a normal-appearing ileocecal valve. There was transillumination of light deep in the right lower quadrant. The entire cecum and ileocecal valve appeared normal. The scope was slowly withdrawn assessing all mucosal surfaces carefully. Preparation was excellent. In the transverse colon, was an approximately 6 mm polyp, which was biopsied and completely removed with cold biopsy forceps. I did not visualize any other polyps, colitis, nor angiodysplasia. There was a moderate amount of sigmoid diverticulosis. In the rectum, scope was retroflexed visualizing small internal hemorrhoids, but no other pathology. The rectal mucosa appeared normal. The scope was straightened out and withdrawn from the patient. He tolerated both procedures well and was returned to recovery area in stable condition. IMPRESSION: 1. Erosive gastritis. 2. Erosive duodenitis. 3. Reflux esophagitis. 4. Hiatal hernia. 5. Colon polyp. 6. Diverticulosis. 7. Internal hemorrhoids. PLAN: The results of biopsy will be checked. If the gastric biopsies do show H pylori, I would recommend treating that. In the meantime, he will be started on oral PPI and I would recommend he continue that long-term, particularly once he has to go back on his blood thinner. He should try to avoid all aspirin and NSAIDs long-term. He should start oral iron as well. Given his age, I do not think he will need any further colonoscopies. I would recommend he stay off the blood thinner for at least 2 weeks before resuming it. His diet will be advanced today. This has been discussed with his family. PROCEDURES PERFORMED: Esophagogastroduodenoscopy with biopsy and colonoscopy to the cecum with biopsy and removal of polyp. MD EMIGDIO El/UZMA / [id number]
--- NOTE | 2021-06-18 09:31 | PC.NURSE ---
PATIENT IS AWAKE, EMOTIONAL AND CONFUSED. NOT FOLLOWING DIRECTIONS.
--- NOTE | 2021-06-18 09:52 | PC.NURSE ---
DR. MAI ASSESSED PATIENT AND DAV'D ANGELO TRANSFER TO FLOOR. THIS RN GAVE PHONE REPORT.,
[2021-06-18] MEDS: Furosemide 20 MG TABLET PO (10:18)
[2021-06-18] MEDS: Ascorbic Acid 500 MG TABLET PO (10:18)
[2021-06-18] MEDS: Valsartan 160 MG TABLET PO (10:18)
[2021-06-18] MEDS: Omeprazole 40 MG CAPSULE.DR PO (10:18)
[2021-06-18] MEDS: allopurinoL 300 MG TABLET PO (10:18)
[2021-06-18] MEDS: Sodium Ferric Gluconat/Sucrose 125 MG in 0.9 % Sodium Chloride 100 ML 100 MG IV (10:44)
--- NOTE | 2021-06-18 13:29 | PM.DS ---
DS: Providers Provider Date of Service: 06/18/21 Date of admission: 06/15/21 13:57 Primary care physician: Luna Dailey NP Consults: 06/15/21 16:39 Consult to Gastroenterology Routine Consulting Provider: Kareem Levy Reason for consultation: symptomatic anemia Has provider been notified: No DS: Diagnosis Discharge Diagnosis (1) Acute on chronic anemia: Status: Acute DS: Medications Discharge Medications Home Medications: Home Medications Medication Instructions Recorded Confirmed Daily Vitamin 1 cap PO DAILY 01/04/21 06/15/21 Move Free Joint Health 1 tab PO DAILY 01/04/21 06/15/21 Zyrtec 5 mg PO DAILY 01/04/21 06/15/21 allopurinol 300 mg tablet 300 mg PO DAILY 01/04/21 06/15/21 (Zyloprim) apixaban 5 mg tablet (Eliquis) 5 mg PO BID 01/04/21 06/15/21 ascorbic acid (vitamin C) 500 mg 500 mg PO BID 01/04/21 06/15/21 tablet flaxseed 1,000 mg capsule 1,000 mg PO DAILY 01/04/21 06/15/21 furosemide 20 mg tablet (Lasix) 20 mg PO DAILY 01/04/21 06/15/21 metoprolol succinate 100 mg 100 mg PO DAILY@1700 01/04/21 06/15/21 tablet,extended release 24 hr (Toprol XL) valsartan 160 mg capsule 160 mg PO BID 01/04/21 06/15/21 Previous Rx's Medication Instructions Recorded omeprazole 40 mg capsule,delayed 40 mg PO DAILY@0630 #30 cap 06/18/21 release DS: Summary Hospital Course Hospital Course: patient was admitted for acute blood loss anemia, hgb 6.5 on admission, improved after 3 units prbc and remained stable, hgb 8.3 at discharge. received ppi, eliquis was held. EGD showed erosive gastritis and duodenitis, biopsies taken. no overt bleeding. patient feeling well, will discharge on omperazole, hodling eliquis 2 weeks, follow up wtih GI, oral iron, no NSAIDS. Time Spent with Patient Time attestation: Total time spent providing and/or coordinating discharge services: Discharge coordination time: Greater than 30 minutes Quality: Stroke Does the patient have a stroke diagnosis?: No Physical Exam Vital Signs: Vital Signs: Last Vital Signs Temp 97.7 F 06/18/21 11:39 Pulse 64 06/18/21 11:39 Resp 19 06/18/21 11:39 BP 119/59 L 06/18/21 11:39 Pulse Ox 98 06/18/21 11:39 Body Mass Index 30.7 General: AO X 3, no acute distress Resp: CTA bilateral CVS: S1,S2,RRR GI: soft, non tender, non distended Neuro: motor grossly intact Psych: appropriate affect DS: Data Data Completed and Pending Pending studies at discharge: Pending at discharge 06/18/21 08:19 Surgical [PTH] Routine Labs on day of discharge: Laboratory Results - last 24 hr 06/18/21 06/18/21 05:15 05:15 WBC 7.9 RBC 3.19 L Hgb 8.3 L Hct 26.8 L MCV 84.0 MCH 26.0 L MCHC 31.0 RDW 14.8 Plt Count 271 MPV 9.8 Absolute Nucleated RBC 0.020 H Nucleated RBC % (auto) 0.3 H Sodium 137 Potassium 3.8 Chloride 102 Carbon Dioxide 26 Anion Gap 13 BUN 11 Creatinine 0.84 Estim Creat Clear Calc 69.1 Estimated GFR > 60 Fasting Glucose 108 H Calcium 8.8 Discharge Plan Discharge Patient Disposition: Home, Self-Care Discharge Diagnosis: erosive gastiritis and duodenitis Referrals: Luna Dailey NP [Primary Care Provider] - 1 Week Jason Noland [Physician] - 1 Week Discharge Medications: New omeprazole 40 mg Capsule,Delayed Release(Dr/Ec) 40 mg PO DAILY@0630 Qty: 30 RF: 0 Continued valsartan 160 mg Capsule 160 mg PO BID RF: 0 metoprolol succinate [Toprol XL] 100 mg Tablet Extended Release 24 Hr 100 mg PO DAILY@1700 RF: 0 allopurinol [Zyloprim] 300 mg Tablet 300 mg PO DAILY RF: 0 furosemide [Lasix] 20 mg Tablet 20 mg PO DAILY RF: 0 flaxseed 1,000 mg Capsule 1,000 mg PO DAILY RF: 0 Zyrtec 5 mg PO DAILY RF: 0 Daily Vitamin capsule 1 cap PO DAILY RF: 0 Move Free Joint Health tablet 1 tab PO DAILY RF: 0 ascorbic acid (vitamin C) 500 mg Tablet 500 mg PO BID RF: 0 Held Eliquis 5 mg Tablet 5 mg PO BID RF: 0 Hold Instructions: Resume on 07/01/21. hold 2 weeks for GI bleed Discharge Orders: Discharge Order (Routine); Ordered 06/18/21 Ordered By: Rangel Martínez Diet: advance to usual diet Activity on Discharge: As tolerated Stand Alone Forms: Patient Portal Discharge page Care Plan Goals: recovery Health Concerns: gi bleed Plan of Treatment: omeprazole, stop nsaids, hold eliquis for 2 weeks, follow up with gi Assessment: see above
[2021-06-18 13:56] LABS: Haptoglobin 170 mg/dL (43-212)
--- NOTE | 2021-06-18 13:56 | MHC.CM.PN ---
pt dcd no services ordered caro valverde md
--- NOTE | 2021-06-18 14:14 | P.BOP_ITS ---
Brief Operative Note Date of Service: 06/18/21 Pre-op diagnosis: Anemia Post-op diagnosis: other (Erosive duodenitis, erosive gastritis, hiatal hernia, colon polyp) Procedure: EGD with biopsies, Colonoscopy to the cecum with bx/removal of polyp Surgeon: Jason Noland Anesthesia: MAC Was an Supply Chain Development Manager used for this Procedure?: No Estimated blood loss (mL): 4.0 Pathology: other (A. Gastric antrum B. Transverse colon polyp) Condition: stable Disposition: PACU
== END 2021-06-18 02:50 | disposition home or self-care (01) | DRG 377 ==
LOC: HO.ED 12:22 → HO.EDOVER 14:31 → HO.IMC 15:27
PROVIDERS: Internal Medicine; Internal Medicine Gastroenterology; Physician Assistant; Student in an Organized Health Care Education/Training Program; Admitting Provider Physician Assistant Medical; Emergency Provider Emergency Medicine; PCP Nurse Practitioner Family; Visit Provider Internal Medicine
PROC: 0DB78ZX Excision of Stomach, Pylorus, Via Natural or Artificial Opening Endoscopic, Diagnostic (ICD-10-PCS; principal; 2021-06-18 07:30)
DX: K57.31 Diverticulosis of large intestine without perforation or abscess with bleeding (principal); K21.01 Gastro-esophageal reflux disease with esophagitis, with bleeding; I48.20 Chronic atrial fibrillation, unspecified; D62 Acute posthemorrhagic anemia; I50.32 Chronic diastolic (congestive) heart failure; K29.71 Gastritis, unspecified, with bleeding; K29.81 Duodenitis with bleeding; K64.8 Other hemorrhoids; K44.9 Diaphragmatic hernia without obstruction or gangrene; K63.5 Polyp of colon; I11.0 Hypertensive heart disease with heart failure; G47.33 Obstructive sleep apnea (adult) (pediatric); Z20.822 Contact with and (suspected) exposure to COVID-19; Z79.01 Long term (current) use of anticoagulants; Z79.899 Other long term (current) drug therapy
CPT/HCPCS: 0241U; 36415; 36430; 71045; 74176; 80048; 82272; 82607; 82728; 83010; 83540; 83615; 83880; 84484; 85025; 85027; 85045; 85379; 85610; 85730; 86850; 86900; 86901; 86923; 88305; 88342; 93005; 96361; 96374; 96375; 99285; J1200; J1940; J2370; J2916; P9016

== ENCOUNTER 2022-05-02 13:32 | Observation (INO) | payer OTHER, MEDICARE, SELFPAY ==
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
[2022-05-02 13:47] VITALS: BP 150/77; BP 154/86; PULSE 87; PULSE 90; RESP 14; TEMP 37.1; O2SAT 97; O2SAT 99; BMI 29.8
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
[2022-05-02 14:36] VITALS: BP 159/80; PULSE 87; RESP 20; TEMP 36.7; O2SAT 97
[2022-05-02 14:41] LABS: Glucose, Whole Blood 120 mg/dL (60-115)
[2022-05-02 14:42] LABS: MANUAL DIFF FLAG NO
[2022-05-02 14:45] LABS: Basophils Absolute Auto 0.1 X10*3/uL (0.0-0.2); Basophils Percent Auto 0.7 % (0-2); Eosinophils Absolute Auto 0.8 X10*3/uL (0.0-0.4); Eosinophils Percent Auto 9.6 % (0-4); Hematocrit 33.6 % (42.0-52.0); Imm Gran Abs Auto 0.02 X10*3/uL (0.00-0.03); Imm Gran Pct Auto 0.2 % (0.0-0.4); Lymphocytes Absolute Auto 1.3 X10*3/uL (1.2-4.9); Lymphocytes Percent Auto 15.5 % (20-40); Mean Corpuscular HGB Conc 32.7 g/dl (31.0-36.0); Mean Corpuscular Hemoglobin 25.9 pg (27.0-33.0); Mean Corpuscular Volume 79.2 fL (80.0-98.0); Mean Platelet Volume 9.3 fL (9.4-12.4); Monocytes Absolute Auto 0.7 X10*3/uL (0.1-1.2); Monocytes Percent Auto 8.4 % (2-11); Neutrophils Absolute Auto 5.3 x10*3/uL (2.0-8.3); Neutrophils Percent Auto 65.6 % (45-73); Platelet Count 190 X10*3/uL (160-400); Red Blood Count 4.24 X10*6/uL (4.60-5.80); Red Cell Distribution Width 14.6 % (11.0-16.0); White Blood Count 8.1 X10*3/uL (4.8-10.8)
[2022-05-02 14:51] LABS: INTERNATIONAL NORM RATIO 1.2 (0.9-1.1); Prothrombin Time 13.5 SEC (10.0-13.1)
[2022-05-02 15:06] LABS: Troponin-I High Sensitivity 17.9 ng/L (<3.5-35.0)
[2022-05-02 15:21] LABS: Alanine Aminotransferase 13 U/L (0-40); Alkaline Phosphatase 56 U/L (39-117); Anion Gap 16 (12-20); Aspartate Amino Transferase 27 U/L (5-37); Bilirubin Direct 0.3 mg/dL (0.0-0.5); Bilirubin Total 0.9 mg/dL (0.0-1.0); Blood Urea Nitrogen 9 mg/dL (9-16); Calcium 8.9 mg/dL (8.4-10.2); Carbon Dioxide 21 mmol/L (22-29); Chloride 98 mmol/L (96-108); Creatinine Clr Calc Pharmacy 66.5; Estimated Glomerular Filt Rate > 60; Glucose Random 116 mg/dL (60-115); Magnesium 1.1 mg/dL (1.6-2.6); Potassium 3.8 mmol/L (3.3-5.1); Sodium 131 mmol/L (135-145); Total Protein 6.8 g/dL (6.5-8.0)
[2022-05-02] MEDS: LORazepam 2 MG/ML VIAL IM (15:40)
[2022-05-02] MEDS: 0.9 % Sodium Chloride 1,000 ML 999 ML IV (15:58)
[2022-05-02 16:00] VITALS: BP 139/72; PULSE 105; RESP 18; O2SAT 99
[2022-05-02] MEDS: levETIRAcetam in NaCl (iso-os) 1,000 MG/100 ML PIGGYBACK 400 MG IV (16:10)
--- NOTE | 2022-05-02 16:15 | PC.NURSE ---
1540 other nurse assisting pt with urinal, pt started seizing, provider notified, tonic-clonic seizure activity, incontinent of urine, medicated with ativan IM, small tongue bite noted. 20G IV placed left hand, ivf and keppra started. vss, pt on oxymask w 5L @ 99%.
[2022-05-02 16:28] LABS: COVID-19 Test Negative (Negative)
[2022-05-02 16:41] LABS: Lactic Acid 12.8 mmol/L (0.5-2.0)
--- NOTE | 2022-05-02 16:56 | PHA.MEDREC ---
Pharmacy Consult ? Medication Reconciliation Pharmacy has completed the medication reconciliation.
[2022-05-02] MEDS: Magnesium Sulfate/H2O 2 GM/50 ML PIGGYBACK IV (17:27)
[2022-05-02 17:35] LABS: Appearance Urine HAZY; Color Urine YELLOW; Glucose Urine UA NEG (NEG); Leukocyte Esterase Urine 1+ (NEG); Nitrite Urine NEG (NEG); PH 5.5 (5.0-8.0); Specific Gravity - Urine 1.015 (1.005-1.025); UACC Culture Trigger YES; Urine Blood 1+ (NEG); Urine Ketones 5 MG/DL (NEG); Urine Protein 2+ MG/DL (NEG-TRACE)
--- NOTE | 2022-05-02 17:45 | PC.NURSE ---
CPAP in room with pt.
[2022-05-02 17:46] LABS: Bacteria Urine TRACE /LPF; WBC Urine TNTC /HPF (0-4)
[2022-05-02 17:58] LABS: Troponin-I High Sensitivity 27.8 ng/L (<3.5-35.0)
[2022-05-02 17:58] LABS: Reflex Lactate? Lactic Acid Added
[2022-05-02] MEDS: cefTRIAXone sodium 1 GM in 0.9 % Sodium Chloride 50 ML IV (19:13)
[2022-05-02 19:15] VITALS: BP 156/97; PULSE 94; RESP 21; O2SAT 99
[2022-05-02 19:45] LABS: ~Lactic Acid-LAB USE ONLY 1.1 mmol/L (0.5-2.0)
[2022-05-02 20:43] VITALS: BP 148/79; PULSE 77; RESP 18; TEMP 36.6; O2SAT 100
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
[2022-05-03] MEDS: Valsartan 160 MG TABLET PO ×3 (00:53→21:25)
[2022-05-03] MEDS: levETIRAcetam 500 MG TABLET PO ×3 (00:53→21:25)
[2022-05-03] MEDS: 0.9 % Sodium Chloride Flush 3 ML SYRINGE IVFLUSH ×3 (00:54→16:08)
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
[2022-05-03 04:20] VITALS: BP 158/86; PULSE 66; RESP 14; O2SAT 98
[2022-05-03 07:06] LABS: MANUAL DIFF FLAG NO
[2022-05-03 07:09] LABS: Basophils Absolute Auto 0.1 X10*3/uL (0.0-0.2); Basophils Percent Auto 0.6 % (0-2); Eosinophils Absolute Auto 0.7 X10*3/uL (0.0-0.4); Eosinophils Percent Auto 7.9 % (0-4); Hematocrit 33.6 % (42.0-52.0); Hemoglobin 10.8 g/dl (14.0-18.0); Imm Gran Abs Auto 0.03 X10*3/uL (0.00-0.03); Imm Gran Pct Auto 0.3 % (0.0-0.4); Lymphocytes Absolute Auto 1.3 X10*3/uL (1.2-4.9); Lymphocytes Percent Auto 14.4 % (20-40); Mean Corpuscular HGB Conc 32.1 g/dl (31.0-36.0); Mean Corpuscular Hemoglobin 25.8 pg (27.0-33.0); Mean Corpuscular Volume 80.4 fL (80.0-98.0); Mean Platelet Volume 9.2 fL (9.4-12.4); Monocytes Absolute Auto 0.8 X10*3/uL (0.1-1.2); Monocytes Percent Auto 8.7 % (2-11); Neutrophils Absolute Auto 6.1 x10*3/uL (2.0-8.3); Neutrophils Percent Auto 68.1 % (45-73); Platelet Count 194 X10*3/uL (160-400); Red Blood Count 4.18 X10*6/uL (4.60-5.80); Red Cell Distribution Width 14.6 % (11.0-16.0); White Blood Count 8.9 X10*3/uL (4.8-10.8)
[2022-05-03 07:15] LABS: Glucose, Whole Blood 118 mg/dL (60-115)
[2022-05-03 07:27] LABS: Anion Gap 14 (12-20); Blood Urea Nitrogen 8 mg/dL (9-16); Calcium 8.6 mg/dL (8.4-10.2); Carbon Dioxide 25 mmol/L (22-29); Chloride 99 mmol/L (96-108); Creatinine Clr Calc Pharmacy 67.3; Estimated Glomerular Filt Rate > 60; Glucose Random 129 mg/dL (60-115); Magnesium 1.8 mg/dL (1.6-2.6); Potassium 3.8 mmol/L (3.3-5.1); Sodium 134 mmol/L (135-145)
[2022-05-03] MEDS: Ascorbic Acid 500 MG TABLET PO ×2 (07:53→21:25)
[2022-05-03] MEDS: allopurinoL 300 MG TABLET PO (07:53)
[2022-05-03] MEDS: Aspirin Enteric Coated 81 MG TABLET.DR PO (07:53)
[2022-05-03] MEDS: Loratadine 10 MG TABLET PO (07:53)
[2022-05-03] MEDS: Clopidogrel Bisulfate 75 MG TABLET PO (07:53)
[2022-05-03] MEDS: Furosemide 20 MG TABLET PO (07:54)
[2022-05-03] MEDS: Omeprazole 40 MG CAPSULE.DR PO (07:54)
[2022-05-03 12:08] LABS: Glucose, Whole Blood 116 mg/dL (60-115)
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
[2022-05-03] MEDS: Enoxaparin Sodium 40 MG/0.4 ML SYRINGE SUBCUT (13:47)
[2022-05-03 16:07] VITALS: BP 146/79; PULSE 77; RESP 16; O2SAT 98
--- NOTE | 2022-05-03 16:09 | PC.NURSE ---
pt a&ox3, vss, 20G IV in left forearm flushed and patent. pt asking about discharge - explained that he is pending neuro consult. insulin/POC held until dinner arrives in ED.
[2022-05-03 18:06] LABS: Glucose, Whole Blood 140 mg/dL (60-115)
[2022-05-03] MEDS: Metoprolol Succinate ER 100 MG TAB.ER.24H PO (18:15)
[2022-05-03] MEDS: cefTRIAXone sodium 1 GM in 0.9 % Sodium Chloride 50 ML IV (18:15)
--- NOTE | 2022-05-03 18:18 | PC.NURSE ---
medicated per provider order.
[2022-05-03 21:15] LABS: Glucose, Whole Blood 158 mg/dL (60-115)
[2022-05-03] MEDS: Insulin Lispro 100 UNIT/ML 3 ML VIAL SUBCUT (21:25)
[2022-05-04 03:22] VITALS: BP 138/76; PULSE 74; RESP 16; TEMP 36.8; O2SAT 94
[2022-05-04 07:35] LABS: Glucose, Whole Blood 124 mg/dL (60-115)
[2022-05-04] MEDS: Aspirin Enteric Coated 81 MG TABLET.DR PO (08:03)
[2022-05-04] MEDS: Ascorbic Acid 500 MG TABLET PO ×2 (08:04→20:58)
[2022-05-04] MEDS: Loratadine 10 MG TABLET PO (08:04)
[2022-05-04] MEDS: Omeprazole 40 MG CAPSULE.DR PO (08:04)
[2022-05-04] MEDS: levETIRAcetam 500 MG TABLET PO ×2 (08:04→20:58)
[2022-05-04] MEDS: Clopidogrel Bisulfate 75 MG TABLET PO (08:04)
[2022-05-04] MEDS: Furosemide 20 MG TABLET PO (08:04)
[2022-05-04] MEDS: allopurinoL 300 MG TABLET PO (08:04)
[2022-05-04 08:06] VITALS: BP 158/79; PULSE 66; RESP 18; O2SAT 95
[2022-05-04] MEDS: 0.9 % Sodium Chloride Flush 3 ML SYRINGE IVFLUSH ×3 (08:07→20:59)
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
[2022-05-04] MEDS: Valsartan 160 MG TABLET PO ×2 (09:51→21:02)
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
[2022-05-04] MEDS: Enoxaparin Sodium 40 MG/0.4 ML SYRINGE SUBCUT (14:12)
[2022-05-04 14:40] LABS: Glucose, Whole Blood 102 mg/dL (60-115)
[2022-05-04 15:46] VITALS: BP 150/73; PULSE 59; RESP 16; TEMP 36.9; O2SAT 97
[2022-05-04] MEDS: Metoprolol Succinate ER 100 MG TAB.ER.24H PO (16:34)
[2022-05-04 18:17] LABS: Glucose, Whole Blood 111 mg/dL (60-115)
[2022-05-04] MEDS: cefTRIAXone sodium 1 GM in 0.9 % Sodium Chloride 50 ML IV (18:40)
[2022-05-04 20:35] LABS: Glucose, Whole Blood 166 mg/dL (60-115)
[2022-05-04] MEDS: Insulin Lispro 100 UNIT/ML 3 ML VIAL SUBCUT (20:58)
[2022-05-04 21:05] VITALS: BP 138/67; PULSE 62; RESP 18; O2SAT 98
[2022-05-05] VITALS: BP 141/59; PULSE 57; RESP 18; TEMP 36.7; O2SAT 96
--- NOTE | 2022-05-05 | EEG_ITS ---
This is a 16-channel EEG with an EKG lead. The patient is reported awake during the tracing. Background EEG rhythm is low amplitude fast with no obvious asymmetry or paroxysmal tendency. Photic stimulation does not produce any significant driving. Hyperventilation is not performed. Cardiac lead does not reveal any significant abnormality. No sharp wave spikes or paroxysmal tendency noted. IMPRESSION: No significant abnormality noted on this EEG. MD LEANDRO Valdez/UZMA / [id number]
[2022-05-05 03:18] VITALS: BP 111/57; PULSE 55; RESP 16; TEMP 36.3; O2SAT 96
[2022-05-05] MEDS: Omeprazole 40 MG CAPSULE.DR PO (05:12)
[2022-05-05 07:25] LABS: Glucose, Whole Blood 131 mg/dL (60-115)
[2022-05-05 08:00] VITALS: BP 140/71; PULSE 51; TEMP 36.5; O2SAT 98
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
[2022-05-05] MEDS: Valsartan 160 MG TABLET PO (10:39)
[2022-05-05] MEDS: Aspirin Enteric Coated 81 MG TABLET.DR PO (10:39)
[2022-05-05] MEDS: Furosemide 20 MG TABLET PO (10:39)
[2022-05-05] MEDS: Ascorbic Acid 500 MG TABLET PO (10:40)
[2022-05-05] MEDS: levETIRAcetam 500 MG TABLET PO (10:40)
[2022-05-05] MEDS: Loratadine 10 MG TABLET PO (10:40)
[2022-05-05] MEDS: Clopidogrel Bisulfate 75 MG TABLET PO (10:40)
[2022-05-05 11:31] LABS: Glucose, Whole Blood 145 mg/dL (60-115)
[2022-05-05] MEDS: allopurinoL 300 MG TABLET PO (11:45)
[2022-05-05] MEDS: 0.9 % Sodium Chloride Flush 3 ML SYRINGE IVFLUSH (11:46)
[2022-05-05] MEDS: Enoxaparin Sodium 40 MG/0.4 ML SYRINGE SUBCUT (12:43)
--- NOTE | 2022-05-05 12:43 | MHC.CM.PN ---
Met with pt and dtr to review d/c planning needs. Pt resides with spouse and is independent with care needs: no services, uses a walker and has plenty of family support for transportation and any other needs. [facility]. Hai farrellx x3, HCP requested, No services anticipated: Family to transport home. REGALADO in chart
[2022-05-05 13:16] VITALS: BP 131/74; PULSE 55; RESP 18; TEMP 36.8
== END 2022-05-05 15:58 | disposition home or self-care (01) ==
LOC: HO.ED 17:48 → HO.EDOVER 20:55
PROVIDERS: Internal Medicine; Nurse Practitioner Family; Admitting Provider Internal Medicine; Emergency Provider Emergency Medicine Emergency Medical Services; PCP Internal Medicine; Visit Provider Internal Medicine
DX: S06.9X9A Unspecified intracranial injury with loss of consciousness of unspecified duration, initial encounter (principal); I48.91 Unspecified atrial fibrillation; R55 Syncope and collapse; E83.42 Hypomagnesemia; R82.81 Pyuria; I10 Essential (primary) hypertension; M54.2 Cervicalgia; E11.9 Type 2 diabetes mellitus without complications; V49.9XXA Car occupant (driver) (passenger) injured in unspecified traffic accident, initial encounter; Y93.9 Activity, unspecified; Y92.9 Unspecified place or not applicable; Y99.9 Unspecified external cause status; Z79.01 Long term (current) use of anticoagulants; Z20.822 Contact with and (suspected) exposure to COVID-19; Z79.4 Long term (current) use of insulin; Z79.899 Other long term (current) drug therapy
CPT/HCPCS: 36415; 70450; 71046; 72125; 80048; 80076; 81001; 82947; 83605; 83735; 84484; 85025; 85610; 87040; 87086; 87635; 93005; 95816; 96365; 96366; 96367; 96372; 96375; 99218; 99285; J0696; J1650; J1953; J2060; J3475

== ENCOUNTER 2023-10-29 20:34 | Emergency (ER) | payer MEDICARE, OTHER, SELFPAY ==
[2023-10-29 20:45] VITALS: BP 164/108; PULSE 85; O2SAT 96
[2023-10-29 20:51] VITALS: BP 167/81; PULSE 79; RESP 14; TEMP 36.9; O2SAT 96
[2023-10-29 21:01] VITALS: BP 160/79; PULSE 72; RESP 18; TEMP 37.1; O2SAT 96; BMI 29.0
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
--- OUTSIDE RECORDS SUMMARY | 2023-10-29 21:45 | XMS_ITS | Continuity of Care Document ---
Author Name Unknown Organization [facility] ter Address [address] [place] [id number]- Care Team Providers Care Gantry Crane Operator Name Role Phone Josefa Tidwell MD Primary Care Physician [phone] [place] [facility] [place](s[place] 02/02/22 - 03/12/[address] [address] Attending Physician: Moe Munoz MD Referring Physician: Moe Munoz MD Allergies, Adverse Reactions, Alerts No Known Allergies Medications allopurinol 300 mg oral tablet 300 mg, 1, tablet, By Mouth, Daily, # 30 tablet, Refills 0, Maintenance, 02/17/22 11:04:00 EDT, Partial fill upon patient request if the prescription is for a schedule II opioid drug. Start Date: 02/17/22 Status: Ordered Eliquis 5 mg oral tablet 1 tablet = 5 mg, By Mouth, 2 times a day, # 60 tablet, 5 Refills, Maintenance, 02/17/22 11:03:00 EDT, Tablet, Partial fill upon patient request if the prescription is for a schedule II opioid drug. Start Date: 02/17/22 Status: Ordered ferrous sulfate 325 mg oral enteric coated tablet 325 mg, 1, tablet, By Mouth, Daily, Refills 0, Maintenance, 02/17/22 11:06:00 EDT, Partial fill upon patient request if the prescription is for a schedule II opioid drug. Start Date: 02/17/22 Status: Ordered furosemide 20 mg oral tablet 20 mg, 1, tablet, By Mouth, Daily, # 30 tablet, Refills 0, Maintenance, 02/17/22 11:04:00 EDT, Partial fill upon patient request if the prescription is for a schedule II opioid drug. Start Date: 02/17/22 Status: Ordered omeprazole 20 mg oral delayed release tablet 1 tablet = 20 mg, By Mouth, Daily, 0 Refills, Maintenance, 02/17/22 11:06:00 EDT, Partial fill uponpatient request if the prescription is for a schedule II opioid drug. Start Date: 02/17/22 Status: Ordered Toprol XL 100 mg oral tablet, extended release 100 mg, 1, tablet, By Mouth, Daily at supper, # 30 tablet, Refills 0, Maintenance, 02/17/22 11:05:00 EDT, Partial fill upon patient request if the prescription is for a schedule II opioid drug. Start Date: 02/17/22 Status: Ordered valsartan 160 mg oral tablet 160 mg, 1, tablet, By Mouth, 2 times a day, # 30 tablet, Refills 0, Maintenance, 02/17/22 11:03:00 EDT, Partial fill upon patient request if the prescription is for a schedule II opioid drug. Start Date: 02/17/22 Status: Ordered ZyrTEC 10 mg oral tablet 0..5 tablet, By Mouth, Daily, # 30 tablet, 0 Refills, Maintenance, 02/17/22 11:04:00 EDT, Tablet, Partial fill upon patient request if the prescription is for a schedule II opioid drug. Start Date: 02/17/22 Status: Ordered Problem List Condition Effective Dates Status Health Status Inform ant Obese class I(Confirmed) Active Atrial fibrillation, persistent(Confirmed) Active
--- OUTSIDE RECORDS SUMMARY | 2023-10-29 21:45 | XMS_ITS | Patient Health Record ---
Author Name Unknown Organization [facility] Address [address] [place] [address] Care Team Providers Care Athletic Trainer Name Role Phone SHAYAN Dailey Primary Care Provider Beni Grimes Jr Unavailable Ramsey Romo Unavailable Unavailable ALLERGIES No Known Allergies REASON FOR REFERRAL No Information MEDICATIONS Medication SIG (Take, Route, Frequency, Duration) Notes Start Date End Date Status Vitamin D Active Furosemide 20 MG 1 tablet Orally Once a day Active Keppra Active Toprol XL 100 MG 1 tablet Orally Once a day Active Valsartan 160 MG 1 tablet Orally Once a day for 30 day(s) Active Vitamin C Active Mens Multivitamin Ac tive Flax Seed Oil Active Omeprazole 20 MG 1 capsule 30 minutes before morning meal Orally twice a day for 30 days 04/22/2022 Active Move Free Ultra Joint Health Active Allopurinol 300 MG 1 tablet Orally Once a day Active ZyrTEC Childrens Allergy 5 MG/5ML as directed Orally Active Move Free Joint Health Advance - as directed Orally Active Aspirin Adult Low Dose 81 MG 1 tablet Or ally Once a day for 30 day(s) Active levETIRAcetam 500 MG 1 tablet Orally lita ry 12 hrs for 30 day(s) Active IMMUNIZATIONS Vaccine Route Administration Date Status Comme nts Influenza Unknown 09/03/2021 Administered Influenza Unknown 08/25/2022 Administered SOCIAL HISTORY Tobacco Use: Social History Observation Description Date Details (start date - stop date) Never Smoker NA - NA Sex Assigned At : Social History Observation Description Sex Assigned At Unknown Tobacco Use/Smoking Question Answer Notes Patient is a nonsmoker Alcohol Screen Question Answer Notes Did you have a drink containing alcohol in the p ast year? 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) Active confirmed Iron deficiency anemia due to chronic blood loss (367140451) Problem Erosive esophagitis (K22.10) Active confirmed 81720566 Problem Iron deficiency anemia, unspecified iron deficiency anemia type (D50.9) Active confirmed 51889123 Problem Chronic gastritis (K29.50) Active confirmed Chronic gastritis (0418995) Encounters Encounter Location Date Provider Diagnosis [facility] [address] [place] [address] 09/16/2023 Beni Angeles Jr Iron deficiency anemia, unspecified iron deficiency anemia type D50.9 [facility] [address] [place] [id number] 05/10/2023 Beni Angeles Jr ASSESSMENTS Encounter Date Diagnosis Assessment Notes Treatment Notes Treatment Clinical Notes 09/16/2023 Iron deficiency anemia, unspecified iron deficiency anemia type (ICD-10 - D50.9) PLAN OF TREATMENT Pending Test Test Name Order Date COLONOSCOPY WITH BIOPSY 08/26/2011 IRON + IBC (FE) 09/16/2023 FERRITIN 09/16/2023 CBC w/o DIFF 09/16/2023 Next Appt Details Provider Name:Beni mcghee Jr, 09/14/2024 01:15:00 PM, [address] [place] [address], [address], [place], [address], Insurance Providers Payer Name Payer Address Payer Phone Subscriber Number Group Number Insured Name Patient Relationship to Insured Coverage Start Date Coverage End Date MEDICARE OF [facility] [address] [place] [address] [id number] ERIC YIP Self - patient is the insured [employer] [address] [place] [address] [phone] [id number] ERIC YIP Self - patient is the insured MEDICAL (GENERAL) HISTORY Medical History History ICD Code Hypertension Hyperlipidemia Gout A. fib, watchman procedure, cardiology a t [facility] SWATHI/CPAP Iron deficiency anemia seizures EGD 06/21, erosive esophagitis/gastritis/ duodenitis Colonoscopy 06/21, small tubu lar adenoma, diverticulosis, internal hemorrhoids Surgical History Surgery Date(Month/Year) foot surgery appendectomy hand surgery Hospitalization History Reason Date(Month/Year) december & june-severe urinary infection, june low blood count
--- OUTSIDE RECORDS SUMMARY | 2023-10-29 21:45 | XMS_ITS | Continuity of Care Document ---
Author Name Unknown Organization [facility] ter Address [address] [place] [id number]- Care Team Providers Care Size Painter Name Role Phone Josefa Tidwell MD Primary Care Physician [place] [facility] [place]/17/22 - 02/18/[address] [address] Discharge Disposition: A-D/C Home Attending Physician: Moe Munoz MD Admitting Physician: Moe Munoz MD Referring Physician: Moe [...] valsartan 160 mg oral tablet 160 mg, Tablet, By Mouth, 02/17/22 21:00:00 EDT Start Date: 02/17/22 Stop Date: 02/17/22 Status: Completed ZyrTEC 10 mg oral tablet 0..5 tablet, By Mouth, Daily, # 30 tablet, 0 Refills, Maintenance, 02/17/22 11:04:00 EDT, Tablet, Partial fill upon patient request if the prescription is for a schedule II opioid drug. Start Date: 02/17/22 Status: Ordered Problem List Condition Effective Dates Status Health Status Inform ant Obese class I(Confirmed) Active Atrial fibrillation, persistent(Confirmed) Active Vital Signs Most recent to oldest [Reference Range]: 1 2 3 Height 168 cm (02/18/22 8:02 AM) 168 cm (02/18/22 2:35 AM) 168 cm (02/17/22 8:05 PM) Weight 85.6 kg (02/18/22 2:35 AM) 84.09 kg (02/17/22 11:10 AM) 84.09 kg (02/17/22 10:22 AM) Oxygen Saturation [94-100 %] 96 % (02/18/22 8:02 AM) 98 % (02/18/22 2:35 AM) 100 % (02/17/22 8:05 PM) Pulse Rate [55-90 bpm] 65 bpm (02/18/22 8:02 AM) 75 bpm (02/18/22 2:35 AM) 72 bpm (02/17/22 8:05 PM) Body Mass Index [18.5-24.99] 30.33 *>HHI* (02/18/22 2:35 AM) Blood Pressure [90-138/55-84 mm Hg] 123/54mm Hg (02/18/22 8:02 AM) 121/70mm Hg (02/18/22 2:35 AM) 154/88mm Hg *H* (02/17/22 10:07 PM) Respiratory Rate [16-30 br/min] 22 br/min (02/18/22 8:02 AM) 18 br/min (02/18/22 2:35 AM) 18 br/min (02/17/22 8:05 PM) Temperature [96.8-100.4 DegF] 98.2 DegF (02/18/22 8:02 AM) 97.9 DegF (02/18/22 2:35 AM) 98.2 DegF (02/17/22 8:05 PM) Mode of Delivery (Oxygen) Room air (02/18/22 8:02 AM) Room air (02/18/22 2:35 AM) Room air (02/17/22 8:05 PM) Blood pressure sites Arm, right (02/18/22 8:02 AM) Arm, right (02/18/22 2:35 AM) Arm, right (02/17/22 8:05 PM) Temperature Route Oral (02/18/22 8:02 AM) Oral (02/18/22 2:35 AM) Oral (02/17/22 8:05 PM) Dry Weight 84.09 kg (02/17/22 10:22 AM) Weight Obtained Via Bed scale (02/18/22 2:35 AM) Patient/family stated (02/17/22 11:10 AM) Patient/family stated (02/17/22 10:22 AM) Dry Weight Obtained Via Patient/family stated (02/17/22 10:22 AM)
--- NOTE | 2023-10-29 22:38 | ED.GENADULT ---
HPI - General Adult General Chief complaint: General Medical Stated complaint: bleeding from the roof of his mouth Time Seen by Provider: 10/29/23 22:38 History of Present Illness HPI narrative: The patient is an 88-year-old male who was eating a piece of pizza with a hard crust. He was eating the pizza and a piece of hard crust was driven in to his hard palate just behind his front teeth and he started bleeding. The bleeding was persistent at home and ultimately his family felt they could not control the bleeding and so they called an ambulance and he was brought to the hospital. The patient takes a baby aspirin daily. He has a history of atrial fibrillation but has had a Watchman procedure done so he is no longer on anticoagulation. Related Data Home Medications Medication Instructions Recorded Confirmed Move Free Joint Health 1 tab PO DAILY 01/04/21 05/02/22 Zyrtec 5 mg PO DAILY 01/04/21 05/02/22 allopurinol 300 mg tablet 300 mg PO DAILY 01/04/21 05/02/22 (Zyloprim) ascorbic acid (vitamin C) 500 mg 500 mg PO BID 01/04/21 05/02/22 tablet flaxseed 1,000 mg capsule 1,000 mg PO DAILY 01/04/21 05/02/22 furosemide 20 mg tablet (Lasix) 20 mg PO DAILY 01/04/21 05/02/22 metoprolol succinate 100 mg 100 mg PO DAILY@1700 01/04/21 05/02/22 tablet,extended release 24 hr (Toprol XL) aspirin 81 mg tablet,delayed 81 mg PO DAILY 05/02/22 05/02/22 release clopidogrel 75 mg tablet 1 tab PO DAILY 05/02/22 05/02/22 omeprazole 40 mg capsule,delayed 1 cap PO DAILY 05/02/22 05/02/22 release valsartan 160 mg tablet 160 mg PO BID 05/02/22 05/02/22 Previous Rx's Medication Instructions Recorded cefuroxime axetil 250 mg tablet 250 mg PO BID 5 days #10 tabs 05/04/22 levetiracetam 500 mg tablet 500 mg PO BID #60 tabs 05/04/22 Allergies Allergy/AdvReac Type Severity Reaction Status Date / Time No Known Allergies Allergy Verified 10/29/23 21:01 Review of Systems Review of Systems: Yes all other systems are reviewed and are negative PMFSH Past Medical History Medical History Afib CHF (congestive heart failure) Diabetes mellitus Hypertension Sleep apnea Surgical History H/O hand surgery Family History Family History Other HTN (hypertension) Social History Social History (System 08/24/23 @ 15:52 by Digna Morgan) Household Members: Spouse Housing: House Do you presently have visiting nurse or other home services: No Alcohol intake: current Alcohol intake frequency: holidays/special occasions only Patient Tobacco Use Status: Never used Tobacco Second Hand Smoke Exposure: No Advance Directives: No Advance Directives Information Provided: No Advance Directives Date on File: 06/15/21 service: Yes Current occupational status: retired Physical Exam ED Vital Signs: Vital Signs - 24 hr 10/29/23 20:51 10/29/23 21:01 10/29/23 22:57 Temperature 98.4 F 98.7 F Pulse Rate 79 72 69 Respiratory Rate 14 18 18 Blood Pressure 167/81 H 160/79 H 143/70 H Pulse Oximetry 96 96 Oxygen Delivery Method Room Air Room Air BMI result Body Mass Index 29.0 Const Other: Patient is an older man who was awake and alert. He is pleasant cooperative. He did not seem in acute distress. HENMT Other: The patient had apparently been bleeding from the mucosa over the hard palate immediately behind his 2 upper front teeth. At the time that I examined the patient there was no active bleeding. There was possibly a pinpoint lesion which might of been a site of recent bleeding. No other apparent injury seen. Eyes General: appearance normal, both eyes and all related structures Alignment and Position: alignment normal Eyelids: Yes eyelids normal Conjunctivae: conjunctivae normal Neck Other: Moving his neck easily. Resp Other: Lungs are clear bilaterally Cardio Other: The patient had a normal heart rate. His rhythm may have been mildly irregular. Skin Other: Skin is normal and unremarkable. Neuro Other: Awake, alert, oriented, appropriate, neurologically intact. Extrem Other: No edema to the extremities Medical Decision Making Medical Decision Making MDM Narrative: The patient is a very pleasant 88-year-old man who takes a daily baby aspirin who had persistent bleeding from a mucosal injury to his hard palate after eating pizza with very sharp crust. The bleeding stops spontaneously just before my evaluation. I do not see any apparent lesion which requires intervention. The patient was given some ice water to swish and swallow. He will be discharged home with his and daughter. Discharge Plan Discharge Clinical Impression: Oral bleeding Patient Disposition: Home, Self-Care Additional Instructions: The bleeding seems to have stopped on its own. I would recommend only taking soft foods for the next day or 2. If you have additional bleeding try rinsing her mouth with ice cold water. This may help stop the bleeding. Please contact your regular doctor if you have any questions. Return to the emergency room if significantly worse. Prescriptions: No Action metoprolol succinate [Toprol XL] 100 mg Tablet Extended Release 24 Hr 100 mg PO DAILY@1700 allopurinol [Zyloprim] 300 mg Tablet 300 mg PO DAILY furosemide [Lasix] 20 mg Tablet 20 mg PO DAILY flaxseed 1,000 mg Capsule 1,000 mg PO DAILY Zyrtec 5 mg PO DAILY Move Free Joint Health tablet 1 tab PO DAILY ascorbic acid (vitamin C) 500 mg Tablet 500 mg PO BID clopidogrel 75 mg tablet 1 tab PO DAILY valsartan 160 mg Tablet 160 mg PO BID aspirin 81 mg Tablet,Delayed Release (Dr/Ec) 81 mg PO DAILY omeprazole 40 mg capsule,delayed release(DR/EC) 1 cap PO DAILY levetiracetam 500 mg Tablet 500 mg PO BID Qty: 60 0RF cefuroxime axetil 250 mg tablet 250 mg PO BID 5 Days Qty: 10 0RF Referrals: [facility] [Outside] (oral bleeding) Interventions: ED Discharge Assessment Last Done: 10/29/23 23:04 Discharge Date/Time: 10/29/23 23:04
[2023-10-29 22:57] VITALS: BP 143/70; PULSE 69; RESP 18
--- NOTE | 2023-10-29 23:10 | PC.NURSE ---
pt's cane found in room, son-in-law notified, will call or stop by for cane tomorrow.
== END 2023-10-29 23:04 | disposition home or self-care (01) ==
PROVIDERS: Emergency Provider Emergency Medicine
DX: K06.8 Other specified disorders of gingiva and edentulous alveolar ridge (principal); I48.91 Unspecified atrial fibrillation; E11.9 Type 2 diabetes mellitus without complications; I50.9 Heart failure, unspecified; I11.0 Hypertensive heart disease with heart failure
CPT/HCPCS: 99283

== ENCOUNTER 2024-09-20 12:11 | Inpatient (IN) | payer MEDICARE, OTHER, SELFPAY ==
[2024-09-20] VITALS (12 sets, daily range): BP systolic 89–175; BP diastolic 55–88; PULSE 50–80; RESP 14–21; TEMP 36.4–36.6; O2SAT 94–100; BMI 28.9
--- NOTE | ~2024-09-20 | XR_ITS ---
EXAMINATION: XR CHEST CLINICAL INFORMATION: cva COMPARISON: X-ray dated May 02, 2022. TECHNIQUE: Frontal view of the chest was obtained. FINDINGS: Elevated left hemidiaphragm. Bilateral pulmonary reticular pattern. No gross consolidation, pleural effusion or pneumothorax. Calcified plaque in a prominent thoracic aortic arch. Multilevel thoracic spondylosis. Degenerative changes in the shoulders. XR/XR chest 1V IMPRESSION: Chronic interstitial lung disease. Mild interstitial lung edema cannot be excluded. Elevated left hemidiaphragm, nonspecific. Electronically signed by: Atif Avalos MD 09/20/2024 02:40 PM [facility]
--- NOTE | ~2024-09-20 | CT_ITS ---
EXAMINATION: CT head for STROKE CLINICAL INFORMATION: right facial droop COMPARISON: CT head 05/02/2022 TECHNIQUE: Contiguous axial imaging was performed from the skull base to vertex without intravenous contrast. This CT examination was performed using dose optimization techniques as appropriate, variously including the following: * Automated exposure control * Adjustment of mA and/or kV according to patient size (this includes techniques or standardized protocols for targeted exams where dose is matched to indication/reason for exam; i.e. extremities or head) * Use of iterative reconstruction technique DLP: 763 mGy-cm. FINDINGS: There is no evidence of acute intracranial hemorrhage or territorial infarction. Veronica to white matter differentiation is well preserved. No abnormal mass effect or midline shift is seen. No extra-axial fluid collections are identified. No hydrocephalus. No lesion in the bilateral basal ganglia Proportional prominence of the ventricles and sulcal spaces is consistent with mild volume loss. Patchy periventricular and deep white matter hypoattenuation is consistent with moderate small vessel ischemic changes. The cerebellar tonsils are well positioned. No acute osseous or soft tissue abnormality. Visualized portions of the orbits are unremarkable. The mastoid air cells and visualized portions of the paranasal sinuses are well aerated. CT/CT head for STROKE IMPRESSION: 1. No acute intracranial hemorrhage or territorial infarction. 2. Chronic microangiopathy and generalized cerebral volume loss. These results were discussed with Ale Klein MD by telephone on 09/20/2024 at 12:32 PM and it was ascertained that the content of the report was understood at the time of direct communication. Electronically signed by: Maggy Logan DO 09/20/2024 12:40 PM [facility]
--- NOTE | ~2024-09-20 | CT_ITS ---
EXAMINATION: CT brain. CLINICAL INFORMATION: Cerebrovascular disease. Right-sided flaccid paralysis, aphasia. COMPARISON: Stroke CT scan of brain on 09/22/2024, stroke CT brain on 09/20/2024, MRI brain on 09/20/2024. TECHNIQUE: Multiple axial images were obtained from base of skull to the vertex with IV contrast enhancement. Coronal and sagittal images of the brain were reconstructed from the axial image data. This CT examination was performed using dose optimization techniques as appropriate, variously including the following: *Automated exposure control *Adjustment of mA and/or kV according to patient size (this includes techniques or standardized protocols for targeted exams where dose is matched to indication/reason for exam; i.e. extremities or head) *Use of iterative reconstruction technique DLP: 1594 mGy-cm FINDINGS: Ventricles, sulci and cisterns are dilated. Persistent low-attenuation lesion compatible with the reported subacute infarct is seen in medial left mid brain extending from medial border of left cerebral peduncle, medial substantia nigra in the region of red nucleus, measuring 1.3 cm in AP diameter, 0.7 cm in width, 0.6 cm in vertical height. There is interval appearance of additional more extensive low attenuation in lateral left mid brain involving mostly the left cerebral peduncle, measuring 1.7 cm in AP diameter, 1.2 cm in width, 0.8 cm in vertical height, not well visualized on CT scan and MRI of brain on 09/20/2024. There are persistent multifocal and patchy low-attenuation lesions along the medial border of left thalamus, with no corresponding lesions seen on MRI. There is no midline shift, no abnormal intra- or extra- axial fluid accumulation. Veronica and white matter differentiation is normal. Postcontrast images show normal enhancement of major intracerebral blood vessels. No enhancing intracranial mass lesion or abnormal meningeal enhancement is seen. Bone window images show no evidence of skull fracture. Bilateral ethmoid sinuses show marked mucosal thickening. CT/CT angio head neck STROKE IMPRESSION: 1. Unchanged age related cerebral atrophy and ventriculomegaly. 2. Unchanged subacute medial left midbrain cerebral infarction and more extensive lateral left cerebral peduncle acute infarction, not evident on CT scan and MRI of brain on 09/20/2024, compatible with progression of acute brainstem infarction. 3. Unchanged, No intracranial hemorrhage or skull fracture is seen. 3. No evidence of space occupying or enhancing intracranial mass lesion could be found. EXAMINATION: CT angiogram of brain. CLINICAL INFORMATION: Cerebral vascular disease. Right-sided flaccid paralysis, aphasia. COMPARISON: CT angiogram of head and neck on 09/20/2024 TECHNIQUE: CT angiogram of the brain was performed C7 following the administration of 70 mL of Omnipaque 350. Coronal and sagittal images were reconstructed from axial image data. 3-dimensional volumetric maximum intensity projection images in multiple planes were reconstructed on an independent workstation. This was performed under concurrent direct supervision and monitoring by radiologist. Reformatted maximum intensity projection angiographic images of the brain were reconstructed on an independent workstation. This CT examination was performed using dose optimization techniques as appropriate, variously including the following: *Automated exposure control *Adjustment of mA and/or kV according to patient size (this includes techniques or standardized protocols for targeted exams where dose is matched to indication/reason for exam; i.e. extremities or head) *Use of iterative reconstruction technique DLP: 1594 mGy-cm FINDINGS: There is normal visualization of bilateral anterior, middle and posterior cerebral arteries, internal carotid arteries, basilar artery and terminal portions of bilateral vertebral arteries. Anterior communicating artery is normal. Bilateral posterior communicating arteries are normal. Bilateral internal carotid siphons are smoothly patent. Extensive tram track shape atherosclerotic calcifications are seen in bilateral internal carotid siphons without causing hemodynamically significant stenosis. Timing of the bolus allows assessment of the major dural venous sinuses. The major cerebral venous sinuses show normal contrast filling. IMPRESSION: 1. Unchanged bilateral internal carotid siphon extensive atherosclerotic calcifications without hemodynamically significant stenosis. 2. No focal cerebral arterial lesion or significant arterial stenosis is seen. EXAMINATION: CT angiogram of neck. CLINICAL INFORMATION: Cerebral vascular disease, Right-sided flaccid paralysis, aphasia. COMPARISON: CT angiogram of head and neck on 09/20/2024 TECHNIQUE: Contrast enhanced CT angiogram of the neck and superior mediastinum was performed following the administration of 70 mL of Omnipaque 350. 3-dimensional volumetric maximum intensity projection images in multiple planes were reconstructed on an independent workstation. This was performed under concurrent direct supervision and monitoring by radiologist. Reformatted maximum intensity projection angiographic images of the neck and superior mediastinum were reconstructed on an independent workstation. Magnified images of carotid bifurcations were reconstructed. This CT examination was performed using dose optimization techniques as appropriate, variously including the following: *Automated exposure control *Adjustment of mA and/or kV according to patient size (this includes techniques or standardized protocols for targeted exams where dose is matched to indication/reason for exam; i.e. extremities or head) *Use of iterative reconstruction technique DLP: 1594 mGy-cm STENOSIS MEASUREMENT: Degree of stenosis was measured and calculated based on NASCET criteria. Carotid stenosis reference using NASCET criteria: % stenosis = (1 - narrowest ICA diameter/diameter of distal cervical ICA) x 100. Mild - < 50% stenosis. Moderate - 50-69% stenosis. Severe - 70-94% stenosis. Near occlusion - 95-99% stenosis. Occluded - 100% stenosis. FINDINGS: RIGHT SIDE: Right internal carotid artery: Extensive large atherosclerotic calcifications are seen at the origin and bulb and proximal right internal carotid artery causing up to 56.9% stenosis in the right internal carotid bulb.. Right external carotid artery: Smoothly patent. Right common carotid artery: Smoothly patent. Extensive calcified atherosclerotic plaques are seen at bifurcation without causing hemodynamically significant stenosis. Right vertebral artery: Smoothly patent. LEFT SIDE: Left internal carotid artery: Smoothly patent. Extensive atherosclerotic calcifications are seen at origin and bulb of left internal carotid artery without causing hemodynamically significant stenosis. Left external carotid artery: Smoothly patent. Large calcified atherosclerotic plaques are present at the origin without causing hemodynamically significant stenosis. Left common carotid artery: Smoothly patent. Scattered atherosclerotic calcifications are present extending to the bifurcation without causing hemodynamically significant stenosis. Left vertebral artery: Smoothly patent and dominant. At the superior mediastinum, the visualized right innominate artery, bilateral subclavian arteries and common carotid arteries are smoothly patent starting from the origin at the aortic arch. A bovine arch is present with the right innominate artery and the left common carotid artery sharing a common origin from the aortic arch. Extensive scattered calcified atherosclerotic plaques are seen in the major arteries and aortic arch without causing hemodynamically significant stenosis. Multilevel advanced cervical spondylosis including advanced C4-C5 to C6-C7 degenerative cervical disc disease is seen. IMPRESSION: 1. Unchanged extensive bilateral common carotid and internal carotid arteries atherosclerotic calcifications. Unchanged moderate proximal right internal carotid artery stenosis. No evidence of significant left carotid stenosis. 2. Unchanged, Patent bilateral vertebral arteries with left-sided dominance. Electronically signed by: Carolann Chacon MD 09/22/2024 10:26 AM [facility]
--- NOTE | ~2024-09-20 | MR_ITS ---
EXAMINATION: MR BRAIN WITHOUT CONTRAST CLINICAL INFORMATION: Intermittent right-sided weakness COMPARISON: MRI brain on 01/06/2021. TECHNIQUE: MRI of the brain was obtained using routine sequences without contrast. FINDINGS: Subtle foci of restricted diffusion along the left aspect of the midbrain medially. No acute intracranial hemorrhage. Several scattered periventricular and deep white matter T2/FLAIR hyperintensities, nonspecific however commonly seen with small vessel ischemic disease. Diffuse prominence of the sulci with associated ex vacuo dilation of the ventricles compatible with global cerebral atrophy. No midline shift or hydrocephalus. No acute extra-axial fluid collections. The osseous structures are unremarkable. The pituitary gland, pineal gland and remaining midline structures are unremarkable. No orbital pathology. The paranasal sinuses and mastoid air cells are clear. MR/MR head/brain wo con IMPRESSION: 1. Subtle acute infarct involving the left midbrain medially. No acute intracranial hemorrhage. 2. Global cerebral atrophy and chronic microangiopathy. Electronically signed by: Berny Knapp MD 09/20/2024 03:55 PM AMBER
--- NOTE | ~2024-09-20 | CT_ITS ---
EXAMINATION: CT head for STROKE CLINICAL INFORMATION: R facial droop, R flaccid paralysis, aphasic COMPARISON: CT head 09/20/2024, MR brain 09/20/2024 TECHNIQUE: Contiguous axial imaging was performed from the skull base to vertex without intravenous contrast. This CT examination was performed using dose optimization techniques as appropriate, variously including the following: * Automated exposure control * Adjustment of mA and/or kV according to patient size (this includes techniques or standardized protocols for targeted exams where dose is matched to indication/reason for exam; i.e. extremities or head) * Use of iterative reconstruction technique DLP: 883 mGy-cm. FINDINGS: Hypodensity in the left midbrain likely corresponds with edema/progression of small acute infarct previously seen on brain MR. There is also asymmetric heterogeneous hypodensity in the left thalamus, new from prior. Otherwise, soto-white matter differentiation is preserved. There is no evidence of acute intracranial hemorrhage. No abnormal mass effect or midline shift is seen. No extra-axial fluid collections are identified. No hydrocephalus. Stable mineralization of the bilateral basal ganglia. Proportional prominence of the ventricles and sulcal spaces is consistent with mild volume loss. Patchy periventricular and deep white matter hypoattenuation is consistent with mild to moderate small vessel ischemic changes. The cerebellar tonsils are well positioned. No acute osseous or soft tissue abnormality. Visualized portions of the orbits are unremarkable. The mastoid air cells and visualized portions of the paranasal sinuses are well aerated. CT/CT head for STROKE IMPRESSION: 1. Hypodensity in the left midbrain likely corresponds with progression and mild edema of small acute infarct previously seen on brain MR. There is also asymmetric heterogeneous hypodensity in the left thalamus which is new from prior and could represent acute infarction. If clinically indicated, consider MRI for further assessment. 2. No acute intracranial hemorrhage. After telephone disconnection and multiple pages, these results were discussed with Dl Martinez MD by telephone on 09/22/2024 at 9:38 AM and it was ascertained that the content of the report was understood at the time of direct communication. Electronically signed by: Maggy Logan DO 09/22/2024 09:42 AM [facility] [place]
--- NOTE | ~2024-09-20 | CT_ITS ---
EXAMINATION: CTA head and neck with contrast CLINICAL INFORMATION: Right-sided weakness COMPARISON: None available. TECHNIQUE: Test bolus sequences followed by intravenous administration of 70 mL of Omnipaque 350 contrast. Helical imaging was performed in the axial plane from the skull vertex to the thoracic inlet. Delayed postcontrast imaging of the head was also performed. The data was processed at the nanotechnology engineering technologist workstation for generation of MIP sequences. Angled MIPs and volume rendered reformatted images were also generated at an offline 3D workstation. Stenoses are assessed in accordance with NASCET criteria unless otherwise indicated. This CT examination was performed using dose optimization techniques as appropriate, variously including the following: *Automated exposure control *Adjustment of mA and/or kV according to patient size (this includes techniques or standardized protocols for targeted exams where dose is matched to indication/reason for exam; i.e. extremities or head) *Use of iterative reconstruction technique DLP: 1578 mGy-cm FINDINGS: CTA NECK: Three-vessel aortic arch. The innominate and bilateral subclavian arteries are patent. The origins and cervical segments of the common carotid arteries are patent bilaterally. The common carotid artery bifurcations with opacification extending into the proximal segments of the internal carotid arteries bilaterally without significant stenosis. The remaining segments of the cervical ICAs are patent bilaterally. The origins and cervical segments of the vertebral arteries are patent bilaterally. No hemodynamically significant stenosis, dissection, or aneurysm. The visualized branches of the external carotid arteries are unremarkable. CTA HEAD: Mild to moderate atherosclerotic calcifications of the bilateral carotid siphons. Anterior circulation: The petrous, cavernous, and supraclinoid segments of the internal carotid arteries are patent bilaterally. The major branches of the anterior and middle cerebral arteries as well as anterior communicating artery complex are patent. No large vessel occlusion, saccular aneurysm, or dissection. Posterior circulation: The intracranial vertebral arteries are patent bilaterally. The basilar artery is normal in course and caliber. The posterior cerebral and superior cerebellar arteries arise normally from the basilar summit. No aneurysm. On delayed imaging, the venous structures demonstrate normal contrast opacification. No filling defect. No abnormal intracranial enhancement. Soft tissues: No suspicious neck mass or cervical adenopathy. Lungs: Clear. Bones: No acute osseous abnormality. No lytic or blastic osseous lesions. Degenerative changes of the visualized spine. CT/CT angio head neck STROKE IMPRESSION: 1. CTA head demonstrates no large vessel occlusion, saccular aneurysm, or dissection. 2. CTA neck demonstrates no hemodynamically significant stenosis, dissection, or aneurysm. Electronically signed by: Berny Knapp MD 09/20/2024 02:13 PM [facility]
--- NOTE | 2024-09-20 12:18 | ECG_ITS ---
Test Reason : STROKE Blood Pressure : / mmHG Vent. Rate : 056 BPM Atrial Rate : 000 BPM P-R Int : 000 ms QRS Dur : 090 ms QT Int : 428 ms P-R-T Axes : 000 014 -31 degrees QTc Int : 413 ms Atrial fibrillation with slow ventricular response Abnormal ECG When compared with ECG of 02-MAY-2022 14:08, Vent. rate has decreased BY 28 BPM Nonspecific T wave abnormality now evident in Lateral leads Referred By: Ale Klein Electronically Signed By:KAPIL GOSS MD
[2024-09-20 12:21] LABS: Glucose, Whole Blood 129 mg/dL (60-115)
--- NOTE | 2024-09-20 12:32 | ED_ITS ---
HPI - Neuro Symptoms/Deficit General Chief Complaint: Stroke Stated Complaint: RT FACIAL DROOP,WEAKNESS SINCE 1899 T-1 PER EMS Time Seen by Provider: 09/20/24 12:18 Source: patient, EMS and old records reviewed Mode of arrival: EMS Limitations: no limitations History of Present Illness ED Provider: DR. Klein HPI Narrative: 89-year-old male past medical history significant for AFib, CHF, DM, HTN, sleep apnea brought in for evaluation of possible stroke. Patient is since 19:00 last night patient was tumbling having unsteady gait, then since this morning patient noticed by his having right facial droop, and speech problem. On arrival patient is AAO x3, complaining of bilateral leg pain, not aware of any neurological deficit including speech problem or facial droop. Related Data Home Medications ?Medication ?Instructions ?Recorded ?Confirmed Move [employer] 1 tab PO DAILY 01/04/21 05/02/22 Zyrtec 5 mg PO DAILY 01/04/21 05/02/22 allopurinol 300 mg tablet 300 mg PO DAILY 01/04/21 05/02/22 (Zyloprim) ascorbic acid (vitamin C) 500 mg 500 mg PO BID 01/04/21 05/02/22 tablet flaxseed 1,000 mg capsule 1,000 mg PO DAILY 01/04/21 05/02/22 furosemide 20 mg tablet (Lasix) 20 mg PO DAILY 01/04/21 05/02/22 metoprolol succinate 100 mg 100 mg PO DAILY@1700 01/04/21 05/02/22 tablet,extended release 24 hr (Toprol XL) aspirin 81 mg tablet,delayed 81 mg PO DAILY 05/02/22 05/02/22 release clopidogrel 75 mg tablet 1 tab PO DAILY 05/02/22 05/02/22 omeprazole 40 mg capsule,delayed 1 cap PO DAILY 05/02/22 05/02/22 release valsartan 160 mg tablet 160 mg PO BID 05/02/22 05/02/22 Previous Rx's ?Medication ?Instructions ?Recorded cefuroxime axetil 250 mg tablet 250 mg PO BID 5 days #10 tabs 05/04/22 levetiracetam 500 mg tablet 500 mg PO BID #60 tabs 05/04/22 Allergies Allergy/AdvReac Type Severity Reaction Status Date / Time No Known Allergies Allergy Verified 09/20/24 12:34 Review of Systems 2 Review of Systems: All other systems are reviewed and are negative Constitutional: Reports as per HPI and Reports no additional constitutional complaints Eyes: Reports as per HPI and Reports no additional eye complaints Reports system reviewed and no additional complaints, except as documented Cardiovascular: Reports as per HPI and Reports no additional cardiovascular complaints Respiratory: Reports as per HPI and Reports no additional respiratory complaints Gastrointestinal: Reports as per HPI and Reports no additional gastrointestinal complaints Genitourinary: Reports no additional female genitourinary complaints Musculoskeletal: Reports no additional musculoskeletal complaints Skin/Breast: Reports system reviewed and no additional complaints, except as docu Psychiatric: Reports no additional psychiatric complaints Endocrine: Reports no additional endocrine complaints Hematologic/Lymphatic: Reports no additional hematologic/lymphatic complaints Allergic/Immunologic: Reports no additional allergic/immunologic complaints Reports system reviewed and no additional complaints, except as documented and Reports Abnormal speech present [facility] Past Medical History Medical History Diabetes mellitus CHF (congestive heart failure) Sleep apnea Hypertension Afib Surgical History H/O hand surgery Family History Family History Other HTN (hypertension) Social History Social History Household Members: Spouse Housing: House Do you presently have visiting nurse or other home services: No Alcohol intake: former Patient Tobacco Use Status: Never used Tobacco Smoked in Last 30 Days: No Second Hand Smoke Exposure: No Use of substances other than those prescribed or required for medical reasons: No Advance Directives: No Advance Directives Information Provided: Yes Advance Directives Date on File: 06/15/21 service: Yes Current occupational status: retired Physical Exam 2 Vital Signs: Vital Signs: Last Vital Signs Temp 98 F 09/20/24 12:31 Pulse 61 09/20/24 15:58 Resp 18 09/20/24 15:58 BP 136/71 09/20/24 15:58 Pulse Ox 99 09/20/24 15:58 O2 Del Method Room Air 09/20/24 15:58 BMI result Body Mass Index 28.9 Vital signs have been reviewed and appear to be correct. Blood pressure elevated. Heart rate normal. Respiratory rate normal. Temperature normal. Oxygen saturation normal. Appearance: Alert. Oriented X3. No acute distress. Head: Normal external exam. Normocephalic. Atraumatic. No Cu[place] signs noted. No raccoon eyes noted Eyes: PERRLA. EOMI. Conjunctiva and sclera normal. Eyelids normal. ENT: TM's Normal. Pharynx normal. Uvula midline. Moist mucous membranes. No trismus noted. No drooling noted. No muffled voice noted. Neck: Normal inspection. Neck supple. FROM. No adenopathy. Thyroid Normal. No meningeal signs. No neck mass noted. CVS: Normal heart rate and rhythm. Heart sound normal. No murmurs noted. Pulses normal throughout. Respiratory: No respiratory distress. Painless inspiration. Breath sounds normal. No wheezes/rales/rhonchi noted. Chest nontender. No accessory muscle usage noted or decreased air movement noted. Abdomen: Soft and nontender. Bowel sounds normal in all 4 quadrants. No distention noted. No organomegaly noted. No visible injury noted. Back: No CVA tenderness. Full range of motion noted. Skin: Skin warm and dry. Normal skin color. Normal skin turgor. No rashes/lesions/lacerations noted. Extremities: No lower extremity edema. Extremities exhibit normal range of motion. Extremities nontender. Neuro: Oriented X 3. Cranial nerve exam: II-XII are grossly intact No motor deficit. No sensory deficit. Reflexes normal. Course Reevaluation(s) Reevaluation #1: I was called to patient's room to re-evaluate the patient, patient was disoriented, with slurred speech, right facial droop, right side body weakness stated this is the similar symptoms that is the patient had before calling EMS patient now has NIH score of 13, the case was discussed with Dr. Lima who recommended to get a CT angio of the head and neck 1st and hold off on TNK until CT angio is done. Time: 13:13 Reevaluation #2: after CT angio of head and neck patient back to his base normal neurological exam able to communicate conversation with no upper or lower body weakness, CT angio reveals no LVO, patient is not a candidate for tnk at this point, case discussed with Dr. Lima who recommended to administer oral aspirin, MRI of the brain, admission for further neurological workup. 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 Lima who recommended start the patient on aspirin and Plavix patient is not a candidate for TNK. Time: 16:12 Medications Administered Generic Name Dose Route Start Last Admin Trade Name Freq PRN Reason Stop Dose Admin Ceftriaxone Sodium 1 gm 09/20/24 15:15 09/20/24 15:58 Ceftriaxone Sodium 1 Gm Vial IVPUSH 1 gm Q24H MICHEL Administration Enoxaparin Sodium 40 mg 09/20/24 15:30 09/20/24 15:55 Enoxaparin Sodium 40 Mg/0.4 Ml Syringe SUBCUT 40 mg Q24H MICHEL Administration Discontinued Medications Generic Name Dose Route Start Last Admin Trade Name Freq PRN Reason Stop Dose Admin Aspirin 81 mg 09/20/24 14:31 09/20/24 14:56 Aspirin Enteric Coated 81 Mg Tablet. PO 09/20/24 14:32 81 mg ONCE ONE Administration Iohexol 100 ml 09/20/24 13:33 09/20/24 13:33 Iohexol 350 Mg/Ml 100 Ml Infus..Btl IV 09/20/24 13:34 70 ml ONCE ONE Administration Medical Decision Making Differential Diagnosis Differential Diagnoses: The differential diagnosis associated with the presentation includes ( Hemorrhagic CVA, ischemic CVA, TIA, large vessel occlusion, electrolyte derangement, hypoglycemia, seizure, brain mass.) Admission/Observation Consideration of admission/observation: Escalation of care including admission/observation considered Consult Healthcare Provider Management of the patient was discussed with: Hospitalist (Dr Martínez) and Drum Worker ( Dr. Thakur) Lab Data MDM Lab Attestation statement: I reviewed the patient's lab results. 09/20/24 12:38 09/20/24 12:38 Labs: Lab Results 09/20/24 09/20/24 09/20/24 Range/Units 12:14 12:15 12:38 WBC 8.8 (4.8-10.8) X10*3/uL RBC 4.40 L (4.60-5.80) X10*6/uL Hgb 13.4 L D (14.0-18.0) g/dl Hct 38.5 L (42.0-52.0) % MCV 87.5 (80.0-98.0) fL MCH 30.5 (27.0-33.0) pg MCHC 34.8 (31.0-36.0) g/dl RDW 14.3 (11.0-16.0) % Plt Count 191 (160-400) X10*3/uL MPV 9.0 L (9.4-12.4) fL Immature Gran % (Auto) 0.3 (0.0-0.4) % Neut % (Auto) 63.4 (45-73) % Lymph % (Auto) 26.7 (20-40) % [place] % (Auto) 5.8 (2-11) % Eos % (Auto) 3.3 (0-4) % Baso % (Auto) 0.5 (0-2) % Lymph # (Auto) 2.3 (1.2-4.9) X10*3/uL [place] # (Auto) 0.5 (0.1-1.2) X10*3/uL Eos # (Auto) 0.3 (0.0-0.4) X10*3/uL Baso # (Auto) 0.0 (0.0-0.2) X10*3/uL Abs Immat Gran (auto) 0.03 (0.00-0.03) X10*3/uL Absolute Neuts (auto) 5.5 (2.0-8.3) x10*3/uL Absolute Nucleated RBC 0.000 (0.0-0.012) X10*3/uL Nucleated RBC % (auto) 0.0 (0.0-0.2) /100WBC PT 12.1 (10.9-12.4) SEC Whole Blood PT 12.3 (11.1-13.5) sec INR 1.0 (0.9-1.1) Whole Blood INR 1.0 (0.9-1.1) Sodium 139 (135-145) mmol/L Potassium 4.2 (3.3-5.1) mmol/L Chloride 105 (96-108) mmol/L Carbon Dioxide 27 (22-29) mmol/L Anion Gap 11 L (12-20) BUN 12 (9-16) mg/dL Creatinine 0.90 (0.5-1.4) mg/dL Estim Creat Clear Calc 57.8 Estimated GFR > 60 POC Glucose 129 H (60-115) mg/dL Random Glucose 128 H (60-115) mg/dL Calcium 9.3 D (8.4-10.2) mg/dL Total Bilirubin 0.7 (0.0-1.0) mg/dL Direct Bilirubin 0.2 (0.0-0.5) mg/dL AST 20 (5-37) U/L ALT 14 (0-40) U/L Alkaline Phosphatase 58 (39-117) U/L Troponin I High Sens 5.0 (<3.5-35.0) ng/L B-Natriuretic Peptide 215 H (<100) pg/mL Total Protein 6.9 (6.5-8.0) g/dL Albumin 4.1 (3.5-5.0) g/dL Triglycerides 213 H (<150) mg/dL Cholesterol 171 (<200) mg/dL LDL Cholesterol, Calc 90 (<100) mg/dL HDL Cholesterol 39 L (>40) mg/dL Lipase 34 (8-78) U/L Urine Color Urine Appearance Urine pH (5.0-9.0) Ur Specific [place] (1.005-1.025) Urine Protein (Neg-Trace) mg/dL Urine Glucose (UA) (Negative) mg/dL Urine Ketones (Negative) mg/dL Urine Blood (Negative) Urine Nitrite (Negative) Ur Leukocyte Esterase (Negative) Urine RBC (0-2) /HPF Urine WBC (0-5) /HPF Ur Squamous Epith Cells (0-2) /HPF Urine Bacteria (None Seen) Hyaline Casts (0-2) /LPF Influenza Type A (PCR) (Negative) Influenza Type B (PCR) (Negative) RSV RNA Qual (PCR) (Negative) SARS-CoV-2 RNA (RT-PCR) (Negative) 09/20/24 Range/Units 12:47 WBC (4.8-10.8) X10*3/uL RBC (4.60-5.80) X10*6/uL Hgb (14.0-18.0) g/dl Hct (42.0-52.0) % MCV (80.0-98.0) fL MCH (27.0-33.0) pg MCHC (31.0-36.0) g/dl RDW (11.0-16.0) % Plt Count (160-400) X10*3/uL MPV (9.4-12.4) fL Immature Gran % (Auto) (0.0-0.4) % Neut % (Auto) (45-73) % Lymph % (Auto) (20-40) % [place] % (Auto) (2-11) % Eos % (Auto) (0-4) % Baso % (Auto) (0-2) % Lymph # (Auto) (1.2-4.9) X10*3/uL [place] # (Auto) (0.1-1.2) X10*3/uL Eos # (Auto) (0.0-0.4) X10*3/uL Baso # (Auto) (0.0-0.2) X10*3/uL Abs Immat Gran (auto) (0.00-0.03) X10*3/uL Absolute Neuts (auto) (2.0-8.3) x10*3/uL Absolute Nucleated RBC (0.0-0.012) X10*3/uL Nucleated RBC % (auto) (0.0-0.2) /100WBC PT (10.9-12.4) SEC Whole Blood PT (11.1-13.5) sec INR (0.9-1.1) Whole Blood INR (0.9-1.1) Sodium (135-145) mmol/L Potassium (3.3-5.1) mmol/L Chloride (96-108) mmol/L Carbon Dioxide (22-29) mmol/L Anion Gap (12-20) BUN (9-16) mg/dL Creatinine (0.5-1.4) mg/dL Estim Creat Clear Calc Estimated GFR POC Glucose (60-115) mg/dL Random Glucose (60-115) mg/dL Calcium (8.4-10.2) mg/dL Total Bilirubin (0.0-1.0) mg/dL Direct Bilirubin (0.0-0.5) mg/dL AST (5-37) U/L ALT (0-40) U/L Alkaline Phosphatase (39-117) U/L Troponin I High Sens (<3.5-35.0) ng/L B-Natriuretic Peptide (<100) pg/mL Total Protein (6.5-8.0) g/dL Albumin (3.5-5.0) g/dL Triglycerides (<150) mg/dL Cholesterol (<200) mg/dL LDL Cholesterol, Calc (<100) mg/dL HDL Cholesterol (>40) mg/dL Lipase (8-78) U/L Urine Color Yellow Urine Appearance Cloudy Urine pH 7.5 (5.0-9.0) Ur Specific [place] <= 1.005 (1.005-1.025) Urine Protein 30 (1+) H (Neg-Trace) mg/dL Urine Glucose (UA) Negative (Negative) mg/dL Urine Ketones Negative (Negative) mg/dL Urine Blood Small (1+) H (Negative) Urine Nitrite Negative (Negative) Ur Leukocyte Esterase Large (3+) H (Negative) Urine RBC 6-10 H (0-2) /HPF Urine WBC >50 H (0-5) /HPF Ur Squamous Epith Cells 0-2 (0-2) /HPF Urine Bacteria 4+ (None Seen) Hyaline Casts 0-2 (0-2) /LPF Influenza Type A (PCR) NEGATIVE (Negative) Influenza Type B (PCR) NEGATIVE (Negative) RSV RNA Qual (PCR) NEGATIVE (Negative) SARS-CoV-2 RNA (RT-PCR) NEGATIVE (Negative) Independent Interpretation I performed an independent interpretation of an: CT Scan ( CT/CT angio head and neck:1. CTA head demonstrates no large vessel occlusion, saccular aneurysm, or dissection. 2. CTA neck demonstrates no hemodynamically significant stenosis, dissection, or aneurysm.) Radiology Impression Discussion of test interpretation with radiology: I have reviewed the radiologist's reading. NIH Stroke Scale Internal: Initial- Upon Arrival Level of Consciousness: Alert Level of Consciousness Questions: Answers both questions correctly Level of Consciousness Commands: Performs both tasks correctly Best Gaze: Normal Visual: No visual loss Facial Palsy: Normal Motor Arm (Right): No drift Motor Arm (Left): No drift Motor Leg (Right): No drift Motor Leg (Left): No drift Limb Ataxia: Absent Sensory: Normal Best Language: No aphasia Dysarthia: Normal Extinction and Inattention: No abnormality Score: 0 Discharge Plan Discharge Clinical Impression: Brain TIA Patient Disposition: Admitted As Inpatient
[2024-09-20 12:44] LABS: MANUAL DIFF FLAG NO
[2024-09-20 12:49] LABS: Prothrombin Time Whole Bld POC 12.3 sec (11.1-13.5)
[2024-09-20 12:49] LABS: Basophils Percent Auto 0.5 % (0-2); Eosinophils Absolute Auto 0.3 X10*3/uL (0.0-0.4); Eosinophils Percent Auto 3.3 % (0-4); Hematocrit 38.5 % (42.0-52.0); Hemoglobin 13.4 g/dl (14.0-18.0); Imm Gran Abs Auto 0.03 X10*3/uL (0.00-0.03); Imm Gran Pct Auto 0.3 % (0.0-0.4); Lymphocytes Absolute Auto 2.3 X10*3/uL (1.2-4.9); Lymphocytes Percent Auto 26.7 % (20-40); Mean Corpuscular HGB Conc 34.8 g/dl (31.0-36.0); Mean Corpuscular Hemoglobin 30.5 pg (27.0-33.0); Mean Corpuscular Volume 87.5 fL (80.0-98.0); Monocytes Absolute Auto 0.5 X10*3/uL (0.1-1.2); Monocytes Percent Auto 5.8 % (2-11); Neutrophils Absolute Auto 5.5 x10*3/uL (2.0-8.3); Neutrophils Percent Auto 63.4 % (45-73); Platelet Count 191 X10*3/uL (160-400); Red Cell Distribution Width 14.3 % (11.0-16.0); White Blood Count 8.8 X10*3/uL (4.8-10.8)
[2024-09-20 12:51] LABS: Prothrombin Time 12.1 SEC (10.9-12.4)
[2024-09-20 12:54] LABS: Appearance Urine Cloudy; Color Urine Yellow; Glucose Urine UA Negative (Negative); Leukocyte Esterase Urine Large (3+) (Negative); Nitrite Urine Negative (Negative); PH 7.5 (5.0-9.0); Specific Gravity - Urine <= 1.005 (1.005-1.025); UMIC TRIGGER UACC YES; Urine Blood Small (1+) (Negative); Urine Ketones Negative (Negative); Urine Protein 30 (1+) mg/dL (Neg-Trace)
[2024-09-20 12:57] LABS: Bacteria Urine 4+ (None Seen); Hyaline Casts Urine 0-2 /LPF (0-2); Squamous Epithelial Cell Urine 0-2 /HPF (0-2); UACC Culture Trigger YES; WBC Urine >50 /HPF (0-5)
[2024-09-20 13:03] LABS: Alanine Aminotransferase 14 U/L (0-40); Albumin Level 4.1 g/dL (3.5-5.0); Alkaline Phosphatase 58 U/L (39-117); Anion Gap 11 (12-20); Aspartate Amino Transferase 20 U/L (5-37); Bilirubin Direct 0.2 mg/dL (0.0-0.5); Bilirubin Total 0.7 mg/dL (0.0-1.0); Blood Urea Nitrogen 12 mg/dL (9-16); Calcium 9.3 mg/dL (8.4-10.2); Carbon Dioxide 27 mmol/L (22-29); Chloride 105 mmol/L (96-108); Creatinine Clr Calc Pharmacy 57.8; Estimated Glomerular Filt Rate > 60; Glucose Random 128 mg/dL (60-115); Lipase 34 U/L (8-78); Potassium 4.2 mmol/L (3.3-5.1); Sodium 139 mmol/L (135-145); Total Protein 6.9 g/dL (6.5-8.0)
--- NOTE | 2024-09-20 13:05 | PC.NURSE ---
Patient arrived via ems, per ems states that noticed last night that patient was having trouble walking and his right side seemed weak. States went to bed and when he woke up he seemed okay okay but the had an episode where he was having trouble word finding with right sided weakness and right side facial droop. Upon arrival patient alert and oriented with no garbled speech. Around 12:50pm patient with no facial droop, hand grasps strong and equal, able to raise both legs, speech clear. At 1pm family rang call restrepo stating symptoms had returned , patient was HR of 48, BP 84/67, patient with word finding difficulty, unable to raise right arm. Provider at bedside. therapy coordinator at bedside , patient to return to CT
[2024-09-20 13:08] LABS: B Type Natriuretic Peptide 215 pg/mL (<100)
[2024-09-20] MEDS: iohexoL 350 MG/ML 100 ML INFUS..BTL IV (13:33)
[2024-09-20 13:41] LABS: Influenza A PCR NEGATIVE (Negative); Influenza B PCR NEGATIVE (Negative); Resp Syncy Virus RNA Qual PCR NEGATIVE (Negative); SARS COV2 PCR INHOUSE NEGATIVE (Negative)
--- NOTE | 2024-09-20 14:19 | PC.NURSE ---
Patient with episode of slurred speech , right sided weakness. VSS provider aware
--- NOTE | 2024-09-20 14:26 | PC.NURSE ---
Patient denies vision changes to right eye, reports left eye is watering . Family at bedside updated on CT results
--- NOTE | 2024-09-20 14:42 | MHC.STROKE ---
Met with patient and family in room 16. Pt is awake, alert and oriented. [place] reports that last evening around 2300 patient reported leg weakness and needed assistance to the bathroom. Patient went to bed and woke around 0500. Weakness remained present at that time. Around 1130 today, patient had some slurred speech and a right sided facial droop accompanied by right sided vision changes. EMS was called and patient was brought to the ED. Upon arrival to ED, NIH was noted to be 0 by ED provider. Initially, patient had CT of the head done This was approximately 1218. AT 1305, pt c/o right sided weakness again and a right sided facial droop was noted. ED provider spoke with Dr. Lima and it was recommended to get an CTA. CTA completed and by the time that the patient returned back to room 16, symptoms had subsided. CTA results reported to Dr. Klein, No LVO noted. Due to symptoms continuing to wax and wane, Dr. Lima recommends an MRI. MRI ordered and screening form completed. Pt/family updated on plan frequently. All questions answered. Stroke/TIA education booklet provided.
--- NOTE | 2024-09-20 14:43 | PM.IMHP ---
History of Present Illness Date of Service: 09/20/24 Attending physician on admission: Rangel Martínez Chief Complaint: Ataxia, facial droop Pt is an 89-year-old male with a PMH significant for?HTN, CHF, seizure disorder, SWATHI on CPAP, and gout who presents to the ED with?ataxia, right-sided facial droop, and difficulty speaking. Patient's family is at bedside who helps supplement HPI. Patient's symptoms began last night when family noted he was having difficulty walking and dragging his right leg. Pt has been experiencing right knee pain for some time now, and family initially did not think anything of it. However this morning when patient awoke he was noted to have a ?glassy? look in his eyes and was mumbling incoherently, having difficulty word finding, and noted to have right-sided facial droop and right-sided weakness. By the time EMS arrived patient had recovered and was speaking and mentating back to baseline. Upon arrival to the ED, nursing notes that patient had 3 additional similar episodes of unresponsiveness and mumbling. Episodes would last approximately 5 minutes before patient would began speaking and mentating as before, though with some residual right-sided weakness afterwards. Currently patient only complains of difficulty seeing out of his left eye where things appear ?blurry?. No previous history of stroke or hyperlipidemia. Of note, patient previously on Eliquis due to AFib, but was transitioned to Watchman device after developing GI bleed. In the ED pt was initially hypertensive up to 170/88, vitals otherwise stable WNL. Labs were grossly unremarkable and around baseline for patient. No leukocytosis. Stable normocytic anemia of 13.4/38.5. No significant electrolyte abnormalities. Renal function baseline. Hepatic function WNL. Troponin 5.0. BNP mildly elevated at 215, around baseline. UA likely positive for UTI with large amount of leukocyte esterase with wbc's greater than 50 and 4+ bacteria. MRI of head/brain found subtle acute infarct involving the left mid brain medially for global cerebral atrophy and chronic microangiopathy. CXR showed chronic interstitial lung disease though mild interstitial lung edema can not be excluded. CT?of head negative for acute intracranial hemorrhage or territorial infarction, though showed chronic microangiopathy and generalized cerebral volume loss. CTA of head and neck showed no large vessel occlusion, saccular aneurysm, dissection, or stenosis. EKG demonstrated atrial fibrillation with slow ventricular response of 56 and nonspecific T-wave abnormalities in lateral leads. Pt was treated with aspirin and Plavix. Pt will be admitted to the hospital for treatment and further evaluation of acute left midbrain CVA. Review of Systems Review of Systems: Negative except for that which is stated in the HPI Yes all other systems are reviewed and are negative [facility] Medical History Diabetes mellitus CHF (congestive heart failure) Sleep apnea Hypertension Afib Family History Other HTN (hypertension) Surgical History H/O hand surgery Social History Household Members: Spouse Housing: House Do you presently have visiting nurse or other home services: No Alcohol intake: former Patient Tobacco Use Status: Never used Tobacco Smoked in Last 30 Days: No Second Hand Smoke Exposure: No Use of substances other than those prescribed or required for medical reasons: No Advance Directives: No Advance Directives Information Provided: Yes Advance Directives Date on File: 06/15/21 service: Yes Current occupational status: retired [employer] Allergies Allergy/AdvReac Type Severity Reaction Status Date / Time No Known Allergies Allergy Verified 09/20/24 12:34 Home Medications ?Medication ?Instructions ?Recorded ?Confirmed ?Last Taken ?Type allopurinol 300 mg tablet 300 mg PO DAILY 09/20/24 09/20/24 Unknown History ascorbic acid (vitamin C) 500 mg 500 mg PO DAILY 09/20/24 09/20/24 Unknown History tablet (Vitamin C) aspirin 81 mg tablet,delayed 81 mg PO DAILY 09/20/24 09/20/24 Unknown History release cetirizine 10 mg tablet (Zyrtec) 10 mg PO DAILY 09/20/24 09/20/24 Unknown History cholecalciferol (vitamin D3) 10 10 mcg PO DAILY 09/20/24 09/20/24 Unknown History mcg (400 unit) tablet (Vitamin D3) furosemide 20 mg tablet 20 mg PO DAILY 09/20/24 09/20/24 Unknown History levetiracetam 500 mg tablet 500 mg PO BID 09/20/24 09/20/24 Unknown History lidocaine 5 % topical patch 1 patch topical DAILY PRN Pain 09/20/24 09/20/24 Unknown History (Lidoderm) metoprolol succinate 100 mg 100 mg PO DAILY@1800 09/20/24 09/20/24 Unknown History tablet,extended release 24 hr multivitamin 1 tab PO DAILY 09/20/24 09/20/24 09/20/24 History omeprazole 20 mg tablet,delayed 20 mg PO DAILY 09/20/24 09/20/24 Unknown History release valsartan 160 mg tablet 160 mg PO BID 09/20/24 09/20/24 Unknown History white petrolatum-mineral oil 57.3 1 appl ophthalmic (eye) BEDTIME 09/20/24 09/20/24 Unknown History %-42.5 % eye ointment (Lubricant Eye) Physical Exam Vital Signs and Narrative: Vital Signs: Last Vital Signs Temp 98 F 09/20/24 12:31 Pulse 57 09/20/24 14:25 Resp 18 09/20/24 14:25 BP 130/68 09/20/24 14:25 Pulse Ox 97 09/20/24 14:25 O2 Del Method Room Air 09/20/24 14:25 BMI result Body Mass Index 28.9 General: AOx3, no acute distress Resp: CTA bilaterally CVS: S1, S2, RRR GI: +BS, NT, no distention Skin: Warm, dry Neuro: Left eyelid droop. Question of mild left facial droop. No dysarthria or difficulty word finding noted. Patient capable of speaking clearly and in full sentences. Strength of upper and lower extremities preserved and symmetrical bilaterally. Negative pronator drift. Extremities: No edema Psych: Appropriate affect Results Labs 09/20/24 12:38 09/20/24 12:38 Labs: Laboratory Results - last 24 hr 09/20/24 09/20/24 09/20/24 12:14 12:15 12:38 MCV 87.5 MCH 30.5 MCHC 34.8 RDW 14.3 Plt Count 191 MPV 9.0 L Immature Gran % (Auto) 0.3 Neut % (Auto) 63.4 Lymph % (Auto) 26.7 [place] % (Auto) 5.8 Eos % (Auto) 3.3 Baso % (Auto) 0.5 Lymph # (Auto) 2.3 [place] # (Auto) 0.5 Eos # (Auto) 0.3 Baso # (Auto) 0.0 Abs Immat Gran (auto) 0.03 Absolute Neuts (auto) 5.5 Absolute Nucleated RBC 0.000 Nucleated RBC % (auto) 0.0 PT 12.1 Whole Blood PT 12.3 INR 1.0 Whole Blood INR 1.0 Anion Gap 11 L Estim Creat Clear Calc 57.8 Estimated GFR > 60 POC Glucose 129 H Random Glucose 128 H Calcium 9.3 D Total Bilirubin 0.7 Direct Bilirubin 0.2 AST 20 ALT 14 Alkaline Phosphatase 58 Troponin I High Sens 5.0 B-Natriuretic Peptide 215 H Total Protein 6.9 Albumin 4.1 Lipase 34 Urine Color Urine Appearance Urine pH Ur Specific [place] Urine Protein Urine Glucose (UA) Urine Ketones Urine Blood Urine Nitrite Ur Leukocyte Esterase Urine RBC Urine WBC Ur Squamous Epith Cells Urine Bacteria Hyaline Casts Influenza Type A (PCR) Influenza Type B (PCR) RSV RNA Qual (PCR) SARS-CoV-2 RNA (RT-PCR) 09/20/24 12:47 MCV MCH MCHC RDW Plt Count MPV Immature Gran % (Auto) Neut % (Auto) Lymph % (Auto) [place] % (Auto) Eos % (Auto) Baso % (Auto) Lymph # (Auto) [place] # (Auto) Eos # (Auto) Baso # (Auto) Abs Immat Gran (auto) Absolute Neuts (auto) Absolute Nucleated RBC Nucleated RBC % (auto) PT Whole Blood PT INR Whole Blood INR Anion Gap Estim Creat Clear Calc Estimated GFR POC Glucose Random Glucose Calcium Total Bilirubin Direct Bilirubin AST ALT Alkaline Phosphatase Troponin I High Sens B-Natriuretic Peptide Total Protein Albumin Lipase Urine Color Yellow Urine Appearance Cloudy Urine pH 7.5 Ur Specific [place] <= 1.005 Urine Protein 30 (1+) H Urine Glucose (UA) Negative Urine Ketones Negative Urine Blood Small (1+) H Urine Nitrite Negative Ur Leukocyte Esterase Large (3+) H Urine RBC 6-10 H Urine WBC >50 H Ur Squamous Epith Cells 0-2 Urine Bacteria 4+ Hyaline Casts 0-2 Influenza Type A (PCR) NEGATIVE Influenza Type B (PCR) NEGATIVE RSV RNA Qual (PCR) NEGATIVE SARS-CoV-2 RNA (RT-PCR) NEGATIVE Imaging Radiologist's Impressions: Impressions Chest X-Ray 09/20/24 12:18 IMPRESSION: Chronic interstitial lung disease. Mild interstitial lung edema cannot be excluded. Elevated left hemidiaphragm, nonspecific. Electronically signed by: Atif Avalos MD 09/20/2024 02:40 PM EST RP Head CT 09/20/24 12:19 IMPRESSION: 1. No acute intracranial hemorrhage or territorial infarction. 2. Chronic microangiopathy and generalized cerebral volume loss. These results were discussed with Ale Klein MD by telephone on 09/20/2024 at 12:32 PM and it was ascertained that the content of the report was understood at the time of direct communication. Electronically signed by: Maggy Logan DO 09/20/2024 12:40 PM EST RP Head/Neck CTA 09/20/24 13:24 IMPRESSION: 1. CTA head demonstrates no large vessel occlusion, saccular aneurysm, or dissection. 2. CTA neck demonstrates no hemodynamically significant stenosis, dissection, or aneurysm. Electronically signed by: Berny Knapp MD 09/20/2024 02:13 PM EST RP Assessment and Plan (1) Acute CVA (cerebrovascular accident): Status: Acute Plan Pt is an 89-year-old male with a PMH significant for?HTN, CHF, seizure disorder, SWATHI on CPAP, and gout who presents to the ED with?ataxia, right-sided facial droop, and difficulty speaking. Pt will be admitted to the hospital for treatment and further evaluation of acute left midbrain CVA.. Acute CVA Pt with at least 4 episodes of ataxia, right-sided weakness, dysarthria, facial droop since yesterday CTA of head and CTA of head/neck negative for acute abnormalities MRI showing subtle acute infarct involving the left midbrain medially Patient given aspirin in the ED Continue aspirin Will start on atorvastatin 40 mg daily Echocardiogram w/bubble study Check lipid profile PT/OT evaluation Neurology consult Monitor on telemetry Seizure disorder Continue levetiracetam Atrial fibrillation Not on anticoagulation, Watchman in place Continue metoprolol CHF Not in acute exacerbation, patient appears euvolemic Continue furosemide HTN Continue valsartan SWATHI CPAP at night Full Code Attending:?Dr. Martinez DVT Prophylaxis: Lovenox Pt will require a hospitalization of at least two nights for treatment of?acute CVA that requires specialist consultation with Neurology and PT/OT, additional workup, and close cardiac monitoring. Quality Stroke Does the patient have a stroke diagnosis?: Yes Reason for No Anti-thrombotic by Day Two: Contraindicated (Last known well time yesterday -- outside of tNK window.) VTE Prior VTE?: No VTE Risk Level:: Medical - moderate - high VTE Device Contraindication: Treatment Not Indicated VTE Drug Contraindication: N/A - Med Ordered
[2024-09-20] MEDS: Aspirin Enteric Coated 81 MG TABLET.DR PO (14:56)
--- NOTE | 2024-09-20 14:59 | PC.NURSE ---
MRI screening form completed with patient and family, faxed to MRI . Transported to [facility] at this time
[2024-09-20 15:52] LABS: Cholesterol 171 mg/dL (<200); HDL Cholesterol 39 mg/dL (>40); LDL Cholesterol Calculated 90 mg/dL (<100); Triglycerides 213 mg/dL (<150)
[2024-09-20] MEDS: Enoxaparin Sodium 40 MG/0.4 ML SYRINGE SUBCUT (15:55)
[2024-09-20] MEDS: cefTRIAXone sodium 1 GM VIAL IVPUSH (15:58)
--- NOTE | 2024-09-20 16:01 | MHC.STROKE ---
Pt to and from MRI monitored with this RN. Pt tolerated procedure without incident. No neuro symptoms noted. Face symmetrical, speech clear, no c/o weakness. Family updated on plan. States no questions. Will continue to assist as needed.
[2024-09-20] MEDS: 0.9 % Sodium Chloride Flush 3 ML SYRINGE IVFLUSH (16:08)
[2024-09-20] MEDS: Clopidogrel Bisulfate 75 MG TABLET PO (16:47)
--- NOTE | 2024-09-20 17:25 | PC.NURSE ---
transferred into hospital bed, [place] cath placed. Patient with no further episodes of unresponsiveness , right hand remains weak
--- NOTE | 2024-09-20 17:30 | MHC.EDTECH ---
Patient got clean, condom catheter put in and Patient resting in his bed quietly within call restrepo in Pt reach.
--- NOTE | 2024-09-20 17:38 | PHA.MEDREC ---
Pharmacy Consult ? Medication Reconciliation Pharmacy has completed the medication reconciliation. Spoke with patient and he had a list from Savanah Dejesus. Patient confirmed he is taking 38 units of Tresiba daily and he states he took that this morning. He confirmed he takes a Humalog Kwikpen injection and states he does 12 units @1200 and 14 units @1700 and was not able to take those today. He confirmed he took his morning medications this morning around 0800 and one Oxycodone 5mg tab @1100.
[2024-09-20] MEDS: Metoprolol Succinate ER 100 MG TAB.ER.24H PO (18:45)
--- NOTE | 2024-09-20 19:39 | PC.NURSE ---
This RN assumed pt care @ 1900. Pt resting in bed, no signs of distress. Plan of care ongoing.
[2024-09-20] MEDS: levETIRAcetam 500 MG TABLET PO (22:00)
[2024-09-20] MEDS: Atorvastatin Calcium 40 MG TABLET PO (22:00)
[2024-09-20] MEDS: Valsartan 160 MG TABLET PO (22:00)
--- NOTE | 2024-09-20 22:13 | PC.NURSE ---
Pt a&ox3, no signs of distress. Pt denies pain at this time Pt medicated per mar Pt reported will want CPAP at 12am Plan of care ongoing.
[2024-09-21] VITALS (10 sets, daily range): BP systolic 117–193; BP diastolic 55–97; PULSE 53–77; RESP 16–20; TEMP 36.5–37.2; O2SAT 94–97; BMI 27.0
[2024-09-21] MEDS: 0.9 % Sodium Chloride Flush 3 ML SYRINGE IVFLUSH ×4 (00:37→23:03)
--- NOTE | 2024-09-21 05:29 | MHC.EDTECH ---
juarez catheter replaced, pt tolerated well
[2024-09-21] MEDS: Pantoprazole Sodium 20 MG TABLET.DR 40 MG PO (06:29)
--- NOTE | 2024-09-21 07:00 | CA_ITS ---
Transthoracic Echocardiogram Patient (Last, First, Middle): Nishant Amin W Gender: Male Date of : 1935 Age: 89 Procedure Date: 09/21/2024 Procedure Type: Transthoracic E[place]ocardi[place] [facility] [place]: 167.64 cm Weight: 75.75 kg BSA: 1.85 m2 Heart Rate: 70 bpm BP: 131 / 69 mmHg Planning Aide: JESSIE Hadley MD: Henok CALERO [place] Working Supervisor: Carlos Eduardo Eubanks MD Symptoms: Acute CVA Study Quality: Fair ECG Rhythm: Atrial Fibrillation Conclusions: - 1. Normal LV ejection fraction of 60 65% 2. At least mildly dilated left atrium 3. Mild aortic regurgitation 4. Upper limits of normal RV systolic pressure 5. Mildly dilated ascending aorta at 3.8 cm Findings Left Ventricle Normal left ventricular size and systolic function. There is mildly increased left ventricular wall thickness. The visually estimated ejection fraction is between 60-65%. Diastolic function is indeterminate on the basis of available data. Right Ventricle Mildly increased right ventricular cavity size. Atria The left atrium is mildly dilated. There is no evidence of interatrial shunt. The right atrium is likely dilated. Aortic Valve There is mild calcification of the aortic valve. There is no aortic valve stenosis. There is mild aortic valve regurgitation. Mitral Valve There is mild anterior and posterior mitral leaflet thickening. There is mild mitral annular calcification. There is trace mitral valve regurgitation. There is no mitral valve stenosis. Pulmonic Valve The pulmonic valve was not well visualized. Tricuspid Valve Likely normal tricuspid valve structure and function. There is mild tricuspid valve regurgitation. Normal right atrial pressure. There is no evidence of pulmonary hypertension. Great Vessels The pulmonary artery was not well visualized. There is mild dilatation of the ascending aorta measuring 3.80 cm. Small plaque is seen in the sino tubular ridge. Venous The inferior vena cava is normal in size and collapses greater than 50% with inspiration. Pericardium/Pleural There is no evidence of pericardial effusion. Prior Study Comparison No prior study available for comparison. Measurements 2D Linear Measurements IVSd: 1.32 0.6-0.9/0.6-1.0 cm LVIDd: 4.58 3.9-5.3/4.2-5.9 cm LVIDd Index: 2.48 2.4-3.2/2.2-3.1 cm/m2 LVIDs: 2.43 2.0-3.6 cm LVPWd: 1.32 0.7-1.1 cm LA Diam: 4.00 2.7-3.8/3.0-4.0 cm LAIDs Index: 2.16 1.5-2.3 cm/m2 LV Mass: 291.51 67-162/88-224 g LV Mass Index: 157.57 43-95/49-115 g/m2 LVOT Diam: 2.00 3.0+(-)1.3 cm 2D Systolic Function EF 4C: 66.50 >55% EF 2C: 53.30 >55% EF BiP: 60.90 >55% Mitral Valve MV Pk E: 0.92 MV PK A: 0.56 MV Decel Time: 264.00 E/A: 1.60 E'Lateral: 12.50 E'Medial: 9.10 E/E' Med: 10.10 E/E' Lat: 7.30 PHT: 77.00 MVA PHT: 2.86 Decel [place]: 3.47 Aortic Valve AoV Pk Bishop: 1.54 AoV Mn Bishop: 1.06 AoV VTI: 0.31 AoV Pk Grad: 9.00 Aov Mn Grad: 5.00 LINDY Cont.VTI: 1.69 LVOT LVOT Pk Bishop: 0.78 LVOT Mn Bishop: 0.61 LVOT VTI: 0.17 LVOT Pk Grad: 2.00 LVOT Mn Grad: 2.00 LVOT Diam: 2.00 LVOT Area: 3.14 Diastolic Function MV Pk E: 0.92 MV Pk A: 0.56 E/A: 1.60 E'Medial: 9.10 E/E' Med: 10.10 E' Laterial: 12.50 E/E' Lat: 7.30 Right Ventricle TAPSE (mm): 14.20 TVS' Bishop: 9.35 Tricuspid Valve TR Pk Bishop: 2.94 TR Pk Grad: 35.00 RA Press: 3.00 RVSP: 38.00 Great Vessels Aorta Sinus of Valsalva: 3.90 2.0-3.5 cm Ao Asc: 3.80 2.1-3.4 cm Ao Arch: 3.10 Pulmonary Valve PV Pk Bishop: 0.82 Peak PV Grad: 3.00 Updated in Other Vendor System with Status of Final Carlos Eduardo Eubanks MD electronically signed on 09/21/2024 12:29:14 PM with status of Final
[2024-09-21] MEDS: Valsartan 160 MG TABLET PO ×2 (08:15→21:34)
[2024-09-21] MEDS: Cholecalciferol (Vitamin D3) 10 MCG TABLET PO (08:15)
[2024-09-21] MEDS: Aspirin Enteric Coated 81 MG TABLET.DR PO (08:15)
[2024-09-21] MEDS: levETIRAcetam 500 MG TABLET PO ×2 (08:15→21:34)
[2024-09-21] MEDS: Loratadine 10 MG TABLET PO (08:16)
[2024-09-21] MEDS: Multivitamin TABLET 1 TAB PO (08:16)
[2024-09-21] MEDS: allopurinoL 300 MG TABLET PO (08:16)
[2024-09-21] MEDS: Ascorbic Acid 500 MG TABLET PO (08:16)
[2024-09-21] MEDS: Furosemide 20 MG TABLET PO (08:16)
[2024-09-21] MEDS: Clopidogrel Bisulfate 75 MG TABLET PO (08:16)
[2024-09-21 08:26] LABS: Estimated Average Glucose 134 mg/dL; Hemoglobin A1C 145.8999 umol/L; Hemoglobin A1c % 6.3 % (<6.0); Total Hemoglobin (HGBA1C) 3200.9681 umol/L
--- NOTE | 2024-09-21 08:46 | MHC.CM.PN ---
CM met with Patient at bedside and assisted him with the completion of a HCP; he named his as his Primary Agent and his Son/Nishant as his Alternate Agent. CM addressed IMM with Patient, providing him with the original and a copy has been placed on the chart. Patient lives in a house with his ,uses a walker to assist with mobility, and uses CPAP. Patient may benefit from a PT Eval to assist with disposition(home new VNA VS STR); CM has initiated and will follow for dc planning. If Patient is dc'd to home, his or Son will transport. PCP is Dr. Ramsey Romo/[place] in [place].
--- NOTE | 2024-09-21 10:17 | P.CNNE_ITS ---
History of Present Illness Data of Consult Service Date: 09/21/24 Primary Care Provider: Nonstaff Physician HPI Reason for consult: Cerebral infarction 89 years old man with underlying history of microvascular disease, complex partial seizure disorder, atrial fibrillation apparently not anticoagulated came to hospital with new onset of difficulty walking. It started a day or 2 before he came. There was no associated speech or swallowing difficulty. He said that maybe his vision was little blurred but no double vision. Now he was feeling better. Review of Systems 2 Review of Systems: No recent cold or flu-like illness or headache PMFSH Past Medical History Medical History Diabetes mellitus CHF (congestive heart failure) Sleep apnea Hypertension Afib Family History Family History Other HTN (hypertension) Surgical History Surgical History H/O hand surgery Social History Social History Household Members: Spouse Housing: House Do you presently have visiting nurse or other home services: No Alcohol intake: former Patient Tobacco Use Status: Never used Tobacco Smoked in Last 30 Days: No Second Hand Smoke Exposure: No Use of substances other than those prescribed or required for medical reasons: No Have you been hit, kicked, punched, or otherwise hurt by someone within the past year? If so, by whom?: No Do you feel safe in your current relationship?: Yes Is there a partner from a previous relationship who is making you feel unsafe now?: No Are you made to feel afraid or neglected: No Advance Directives: No Advance Directives Information Provided: Yes Advance Directives Date on File: 06/15/21 Do you have a plan to hurt others: No Plan Recently lost weight without trying: No How much weight loss: Not applicable Eating poorly because of decreased appetite: No Nutrition screen score: 0 Nutrition Risks: On aspiration precautions Poor oral hygiene: No service: Yes Current occupational status: retired [employer] Allergies Allergy/AdvReac Type Severity Reaction Status Date / Time No Known Allergies Allergy Verified 09/20/24 12:34 Active Medications: Current Medications Acetaminophen (Acetaminophen 325 Mg Tablet) 650 mg PO Q6H PRN PRN Reason: Pain, Mild (Pain Scale 1-3), fever or headache Allopurinol (Allopurinol 300 Mg Tablet) 300 mg PO DAILY [facility] Last Admin: 09/21/24 08:16 Dose: 300 mg Ascorbic Acid (Ascorbic Acid 500 Mg Tablet) 500 mg PO DAILY [facility] Last Admin: 09/21/24 08:16 Dose: 500 mg Aspirin (Aspirin Enteric Coated 81 Mg Tablet.Dr) 81 mg PO DAILY [facility] Last Admin: 09/21/24 08:15 Dose: 81 mg Atorvastatin Calcium (Atorvastatin Calcium 40 Mg Tablet) 40 mg PO BEDTIME [facility] Last Admin: 09/20/24 22:00 Dose: 40 mg Benzonatate (Benzonatate 100 Mg Capsule) 100 mg PO TID PRN PRN Reason: Cough Calcium Carbonate (Calcium Carbonate 750 Mg Tab.Chew) 750 mg PO Q4H PRN PRN Reason: Heartburn Ceftriaxone Sodium (Ceftriaxone Sodium 1 Gm Vial) 1 gm IVPUSH Q24H [facility] Last Admin: 09/20/24 15:58 Dose: 1 gm Clopidogrel Bisulfate (Clopidogrel Bisulfate 75 Mg Tablet) 75 mg PO DAILY [facility] Last Admin: 09/21/24 08:16 Dose: 75 mg Enoxaparin Sodium (Enoxaparin Sodium 40 Mg/0.4 Ml Syringe) 40 mg SUBCUT Q24H [facility] Last Admin: 09/20/24 15:55 Dose: 40 mg Furosemide (Furosemide 20 Mg Tablet) 20 mg PO DAILY [facility]; Protocol Last Admin: 09/21/24 08:16 Dose: 20 mg Levetiracetam (Levetiracetam 500 Mg Tablet) 500 mg PO BID [facility] Last Admin: 09/21/24 08:15 Dose: 500 mg Loratadine (Loratadine 10 Mg Tablet) 10 mg PO DAILY [facility] Last Admin: 09/21/24 08:16 Dose: 10 mg Magnesium Hydroxide (Milk Of Magnesia 30 Ml Oral.Susp) 30 ml PO DAILY PRN PRN Reason: Constipation Melatonin (Melatonin 3 Mg Tablet) 6 mg PO BEDTIME PRN PRN Reason: Insomnia Metoprolol Succinate (Metoprolol Succinate Er 100 Mg Tab.Er.24h) 100 mg PO DAILY@1800 [facility]; Protocol Last Admin: 09/20/24 18:45 Dose: 100 mg Multivitamins/Vitamin C (Multivitamin Tablet) 1 tab PO DAILY [facility] Last Admin: 09/21/24 08:16 Dose: 1 tab Ondansetron HCl (Ondansetron Hcl 4 Mg/2 Ml Vial) 4 mg IVPUSH Q8H PRN PRN Reason: Nausea and Vomiting Pantoprazole Sodium (Pantoprazole Sodium 20 Mg Tablet.) 40 mg PO DAILY@0630 [facility] Last Admin: 09/21/24 06:29 Dose: 40 mg Sodium Chloride (0.9 % Sodium Chloride Flush 3 Ml Syringe) 3 ml IVFLUSH QSHIFT [facility] Last Admin: 09/21/24 08:16 Dose: 3 ml Valsartan (Valsartan 160 Mg Tablet) 160 mg PO BID [facility]; Protocol Last Admin: 09/21/24 08:15 Dose: 160 mg Vitamin D (Cholecalciferol (Vitamin D3) 10 Mcg Tablet) 10 mcg PO DAILY [facility] Last Admin: 09/21/24 08:15 Dose: 10 mcg Home Medications ?Medication ?Instructions ?Recorded ?Confirmed ?Last Taken ?Type allopurinol 300 mg tablet 300 mg PO DAILY 09/20/24 09/20/24 Unknown History ascorbic acid (vitamin C) 500 mg 500 mg PO DAILY 09/20/24 09/20/24 Unknown History tablet (Vitamin C) aspirin 81 mg tablet,delayed 81 mg PO DAILY 09/20/24 09/20/24 Unknown History release cetirizine 10 mg tablet (Zyrtec) 10 mg PO DAILY 09/20/24 09/20/24 Unknown History cholecalciferol (vitamin D3) 10 10 mcg PO DAILY 09/20/24 09/20/24 Unknown History mcg (400 unit) tablet (Vitamin D3) furosemide 20 mg tablet 20 mg PO DAILY 09/20/24 09/20/24 Unknown History levetiracetam 500 mg tablet 500 mg PO BID 09/20/24 09/20/24 Unknown History lidocaine 5 % topical patch 1 patch topical DAILY PRN Pain 09/20/24 09/20/24 Unknown History (Lidoderm) metoprolol succinate 100 mg 100 mg PO DAILY@1800 09/20/24 09/20/24 Unknown History tablet,extended release 24 hr multivitamin 1 tab PO DAILY 09/20/24 09/20/24 09/20/24 History omeprazole 20 mg tablet,delayed 20 mg PO DAILY 09/20/24 09/20/24 Unknown History release valsartan 160 mg tablet 160 mg PO BID 09/20/24 09/20/24 Unknown History white petrolatum-mineral oil 57.3 1 appl ophthalmic (eye) BEDTIME 09/20/24 09/20/24 Unknown History %-42.5 % eye ointment (Lubricant Eye) Physical Exam 2 Vital Signs: Vital Signs: Last Vital Signs Temp 98.7 F 09/21/24 07:26 Pulse 68 09/21/24 08:21 Resp 20 09/21/24 07:26 BP 131/69 09/21/24 07:26 Pulse Ox 95 09/21/24 07:26 O2 Del Method Room Air 09/21/24 07:26 BMI result Body Mass Index 27.0 Neuro: Other: He is alert and awake with normal spontaneity of speech fluency comprehension and affect. Face is symmetrical. There is no obvious focal arm or leg weakness. Plantars are flexor. Deep tendon reflexes are trace to absent. Results Labs 09/20/24 12:38 09/20/24 12:38 Labs: Short CBC 09/20/24 Range/Units 12:38 WBC 8.8 (4.8-10.8) X10*3/uL Hgb 13.4 L D (14.0-18.0) g/dl Hct 38.5 L (42.0-52.0) % Plt Count 191 (160-400) X10*3/uL BMP 09/20/24 12:38 Sodium 139 Potassium 4.2 Chloride 105 Carbon Dioxide 27 BUN 12 Creatinine 0.90 Calcium 9.3 D Liver Function 09/20/24 Range/Units 12:38 Total Bilirubin 0.7 (0.0-1.0) mg/dL Direct Bilirubin 0.2 (0.0-0.5) mg/dL AST 20 (5-37) U/L ALT 14 (0-40) U/L Alkaline Phosphatase 58 (39-117) U/L Albumin 4.1 (3.5-5.0) g/dL Urine 09/20/24 Range/Units 12:47 Urine Color Yellow Urine Appearance Cloudy Urine pH 7.5 (5.0-9.0) Ur Specific Mccoll <= 1.005 (1.005-1.025) Urine Protein 30 (1+) H (Neg-Trace) mg/dL Urine Glucose (UA) Negative (Negative) mg/dL Head CT did not reveal any acute abnormality. CTA of brain and neck did not reveal any vascular lesion. MRI of brain revealed a small left midbrain midline acute ischemic infarct with chronic microvascular ischemic changes Assessment and Plan (1) Acute CVA (cerebrovascular accident): Status: Acute 89 years old man with atrial fibrillation and a small acute left mid brain acute ischemic infarction. Stroke is small and he probably would recover. My recommendation is to anticoagulate with a medicine like Eliquis and continue seizure medicine. PT OT consultation is recommended Procedures Date of Service Date of Service: 09/21/24
--- NOTE | 2024-09-21 11:09 | P.PNIM_ITS ---
Subjective Subjective Date of Service: 09/21/24 Interval History: having some vision difficulties; facial droop and unilateral weakness resolved Review of Systems Review of Systems: Yes all other systems are reviewed and are negative Physical Exam 2 Vital Signs: Vital Signs: Last Vital Signs Temp 98.1 F 09/21/24 11:06 Pulse 60 09/21/24 11:06 Resp 20 09/21/24 11:06 BP 135/65 09/21/24 11:06 Pulse Ox 97 09/21/24 11:06 O2 Del Method Room Air 09/21/24 11:06 BMI result Body Mass Index 27.0 Gen: in no acute distress HEENT: sclera anicteric, moist mucus membranes Neck: supple Lungs: clear to auscultation bilaterally Heart: irregular, no murmurs Abd: soft, non-tender, non-distended Ext: no edema Skin: warm/well-perfused Neuro: alert and oriented x3, no pronator drift, no visual field deficit, no arm or leg weakness Psych: appropriate affect Objective Data Active Medications Acetaminophen (Acetaminophen 325 Mg Tablet) 650 mg PO Q6H PRN PRN Reason: Pain, Mild (Pain Scale 1-3), fever or headache Allopurinol (Allopurinol 300 Mg Tablet) 300 mg PO DAILY [facility] Last Admin: 09/21/24 08:16 Dose: 300 mg Documented By: SHIV Ascorbic Acid (Ascorbic Acid 500 Mg Tablet) 500 mg PO DAILY [facility] Last Admin: 09/21/24 08:16 Dose: 500 mg Documented By: SHIV Aspirin (Aspirin Enteric Coated 81 Mg Tablet.) 81 mg PO DAILY [facility] Last Admin: 09/21/24 08:15 Dose: 81 mg Documented By: SHIV Atorvastatin Calcium (Atorvastatin Calcium 40 Mg Tablet) 40 mg PO BEDTIME [facility] Last Admin: 09/20/24 22:00 Dose: 40 mg Documented By: HALI Benzonatate (Benzonatate 100 Mg Capsule) 100 mg PO TID PRN PRN Reason: Cough Calcium Carbonate (Calcium Carbonate 750 Mg Tab.Chew) 750 mg PO Q4H PRN PRN Reason: Heartburn Ceftriaxone Sodium (Ceftriaxone Sodium 1 Gm Vial) 1 gm IVPUSH Q24H [facility] Last Admin: 09/20/24 15:58 Dose: 1 gm Documented By: MICK Clopidogrel Bisulfate (Clopidogrel Bisulfate 75 Mg Tablet) 75 mg PO DAILY [facility] Last Admin: 09/21/24 08:16 Dose: 75 mg Documented By: SHIV Enoxaparin Sodium (Enoxaparin Sodium 40 Mg/0.4 Ml Syringe) 40 mg SUBCUT Q24H [facility] Last Admin: 09/20/24 15:55 Dose: 40 mg Documented By: MICK Furosemide (Furosemide 20 Mg Tablet) 20 mg PO DAILY [facility]; Protocol Last Admin: 09/21/24 08:16 Dose: 20 mg Documented By: SHIV Levetiracetam (Levetiracetam 500 Mg Tablet) 500 mg PO BID [facility] Last Admin: 09/21/24 08:15 Dose: 500 mg Documented By: SHIV Loratadine (Loratadine 10 Mg Tablet) 10 mg PO DAILY [facility] Last Admin: 09/21/24 08:16 Dose: 10 mg Documented By: SHIV Magnesium Hydroxide (Milk Of Magnesia 30 Ml Oral.Susp) 30 ml PO DAILY PRN PRN Reason: Constipation Melatonin (Melatonin 3 Mg Tablet) 6 mg PO BEDTIME PRN PRN Reason: Insomnia Metoprolol Succinate (Metoprolol Succinate Er 100 Mg Tab.Er.24h) 100 mg PO DAILY@1800 [facility]; Protocol Last Admin: 09/20/24 18:45 Dose: 100 mg Documented By: MICK Multivitamins/Vitamin C (Multivitamin Tablet) 1 tab PO DAILY [facility] Last Admin: 09/21/24 08:16 Dose: 1 tab Documented By: SHIV Ondansetron HCl (Ondansetron Hcl 4 Mg/2 Ml Vial) 4 mg IVPUSH Q8H PRN PRN Reason: Nausea and Vomiting Pantoprazole Sodium (Pantoprazole Sodium 20 Mg Tablet.Dr) 40 mg PO DAILY@0630 [facility] Last Admin: 09/21/24 06:29 Dose: 40 mg Documented By: DIOR Sodium Chloride (0.9 % Sodium Chloride Flush 3 Ml Syringe) 3 ml IVFLUSH QSHIFT [facility] Last Admin: 09/21/24 08:16 Dose: 3 ml Documented By: SHIV Valsartan (Valsartan 160 Mg Tablet) 160 mg PO BID [facility]; Protocol Last Admin: 09/21/24 08:15 Dose: 160 mg Documented By: SHIV Vitamin D (Cholecalciferol (Vitamin D3) 10 Mcg Tablet) 10 mcg PO DAILY [facility] Last Admin: 09/21/24 08:15 Dose: 10 mcg Documented By: SHIV Labs 09/20/24 12:38 09/20/24 12:38 Labs: Laboratory Results - last 24 hr 09/20/24 09/20/24 09/20/24 12:14 12:15 12:38 MCV 87.5 MCH 30.5 MCHC 34.8 RDW 14.3 Plt Count 191 MPV 9.0 L Immature Gran % (Auto) 0.3 Neut % (Auto) 63.4 Lymph % (Auto) 26.7 [place] % (Auto) 5.8 Eos % (Auto) 3.3 Baso % (Auto) 0.5 Lymph # (Auto) 2.3 [place] # (Auto) 0.5 Eos # (Auto) 0.3 Baso # (Auto) 0.0 Abs Immat Gran (auto) 0.03 Absolute Neuts (auto) 5.5 Absolute Nucleated RBC 0.000 Nucleated RBC % (auto) 0.0 PT 12.1 Whole Blood PT 12.3 INR 1.0 Whole Blood INR 1.0 Anion Gap 11 L Estim Creat Clear Calc 57.8 Estimated GFR > 60 POC Glucose 129 H Random Glucose 128 H Estimat Average Glucose 134 Hemoglobin A1c % 6.3 H Calcium 9.3 D Total Bilirubin 0.7 Direct Bilirubin 0.2 AST 20 ALT 14 Alkaline Phosphatase 58 Troponin I High Sens 5.0 B-Natriuretic Peptide 215 H Total Protein 6.9 Albumin 4.1 Triglycerides 213 H Cholesterol 171 LDL Cholesterol, Calc 90 HDL Cholesterol 39 L Lipase 34 Urine Color Urine Appearance Urine pH Ur Specific [place] Urine Protein Urine Glucose (UA) Urine Ketones Urine Blood Urine Nitrite Ur Leukocyte Esterase Urine RBC Urine WBC Ur Squamous Epith Cells Urine Bacteria Hyaline Casts Influenza Type A (PCR) Influenza Type B (PCR) RSV RNA Qual (PCR) SARS-CoV-2 RNA (RT-PCR) 09/20/24 12:47 MCV MCH MCHC RDW Plt Count MPV Immature Gran % (Auto) Neut % (Auto) Lymph % (Auto) [place] % (Auto) Eos % (Auto) Baso % (Auto) Lymph # (Auto) [place] # (Auto) Eos # (Auto) Baso # (Auto) Abs Immat Gran (auto) Absolute Neuts (auto) Absolute Nucleated RBC Nucleated RBC % (auto) PT Whole Blood PT INR Whole Blood INR Anion Gap Estim Creat Clear Calc Estimated GFR POC Glucose Random Glucose Estimat Average Glucose Hemoglobin A1c % Calcium Total Bilirubin Direct Bilirubin AST ALT Alkaline Phosphatase Troponin I High Sens B-Natriuretic Peptide Total Protein Albumin Triglycerides Cholesterol LDL Cholesterol, Calc HDL Cholesterol Lipase Urine Color Yellow Urine Appearance Cloudy Urine pH 7.5 Ur Specific [place] <= 1.005 Urine Protein 30 (1+) H Urine Glucose (UA) Negative Urine Ketones Negative Urine Blood Small (1+) H Urine Nitrite Negative Ur Leukocyte Esterase Large (3+) H Urine RBC 6-10 H Urine WBC >50 H Ur Squamous Epith Cells 0-2 Urine Bacteria 4+ Hyaline Casts 0-2 Influenza Type A (PCR) NEGATIVE Influenza Type B (PCR) NEGATIVE RSV RNA Qual (PCR) NEGATIVE SARS-CoV-2 RNA (RT-PCR) NEGATIVE Assessment and Plan (1) Acute CVA (cerebrovascular accident): Status: Acute Plan d2 89yo M with AF s/p Watchman, HTN, CHF unknown EF, seizure disorder, SWATHI on CPAP presenting after R-sided facial droop, RLE weakness which have resolved; 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 CVA - on DAPT as per Dr Lima; formal Neuro consult/PT/OT evals pending; continue atorvastatin - TTE pending atrial fibrillation - not on AC due to hx GI bleed; has Watchman device - continue metoprolol succinate UTI - ceftriaxone 09/20-, follow UCx seizure disorder - levetiracetam HF unknown EF HTN - continue furosemide, metoprolol succinate, valsartan SWATHI - CPAP at night gout - allopurinol VTE ppx - enoxaparin dispo - TBD In my clinical judgment, the patient requires continued inpatient hospitalization for the following reasons: acute CVA evaluation Total time managing care of this patient today: 40 minutes. Quality Stroke Does the patient have a stroke diagnosis?: Yes Reason for No Anti-thrombotic by Day Two: Contraindicated (Last known well time yesterday -- outside of tNK window.) VTE Prior VTE?: No VTE Risk Level:: Medical - moderate - high VTE Device Contraindication: Treatment Not Indicated VTE Drug Contraindication: N/A - Med Ordered
--- NOTE | 2024-09-21 13:44 | MHC.CM.PN ---
CM met with Patient and his /HCP at bedside. [facility] has accepted Patient and [facility] is first choice. [facility] is second choice and they are reviewing the referral.CM will follow.
[2024-09-21] MEDS: Enoxaparin Sodium 40 MG/0.4 ML SYRINGE SUBCUT (16:23)
[2024-09-21] MEDS: cefTRIAXone sodium 1 GM VIAL IVPUSH (16:23)
--- NOTE | 2024-09-21 18:01 | PC.NURSE ---
Per patient's family, feel that patient has more slurred speech than before and overall not doing as well as he was last night. Patient noted to have some slurred speech, however able to correct more clearly when asked to repeat. Continued slight R facial droop and R sided weakness noted. Per patient he feels fine. Dr. Martinez made aware. CT ordered and then cancelled per Dean CALERO. Angela CALERO at bedside to speak with patient and family about plan of care. All needs met.
[2024-09-21] MEDS: Metoprolol Succinate ER 100 MG TAB.ER.24H PO (19:15)
[2024-09-21] MEDS: Atorvastatin Calcium 40 MG TABLET PO (21:34)
[2024-09-22] VITALS (8 sets, daily range): BP systolic 97–120; BP diastolic 53–64; PULSE 53–79; RESP 18–20; TEMP 36.6–38.3; O2SAT 93–96
[2024-09-22] MEDS: Pantoprazole Sodium 20 MG TABLET.DR 40 MG PO (05:39)
[2024-09-22] MEDS: Enoxaparin Sodium 40 MG/0.4 ML SYRINGE 75 MG SUBCUT (08:54)
--- NOTE | 2024-09-22 08:59 | PC.NURSE ---
MD called to bedside to assess patient at 0836 . Patient noted to have new left sided droop as apposed to previous R sided droop with pupils fixed bilaterally . Patient speech mumbled and minimally comprehensible. Patient able to slightly rotary driller helper RNs hand on L side but not at all on r side. BP soft at 97/55 and rectal temp 100.4. all other vital signs stable. MD ordered STAT head CT and increased dosage of lovenox. Consent obtained from health care proxy for CT scan
--- NOTE | 2024-09-22 09:44 | MHC.STROKE ---
Notified by Dr. Martinez this morning at 0846 of change in mental status of patient along with right sided facial droop and RUE flaccid. 0855 Went to patient's room to speak to nurse. Both primary RN Nikki and blade bender furnace tender Elena with the patient. Plan is for Stroke CTH CTA Head/Neck. This RN assisted charge nurse and we brought patient to the main CT scanner for test. Pt is lethargic, arousable to verbal stimuli. Will say one or two words. Speech thick Nystagmus noted to right eye. RUE weak. Upon return to patient room vital signs as follows: 114/62, P65, Room Air Sat 95%. Pt has congested cough. According to primary RN, rectal temp this am 100.4 notified of change in condition by fire extinguisher charger Dr. Merchant notified of change in condition. Awaiting results of CT scans. Discussed all of the above with Dr. Martinez. Will continue to assist
[2024-09-22] MEDS: levETIRAcetam in NaCl (iso-os) 500 MG/100 ML PIGGYBACK 400 MG IV (10:54)
[2024-09-22 11:25] LABS: Anion Gap 10 (12-20); Blood Urea Nitrogen 19 mg/dL (9-16); Calcium 8.6 mg/dL (8.4-10.2); Carbon Dioxide 27 mmol/L (22-29); Chloride 104 mmol/L (96-108); Creatinine Clr Calc Pharmacy 40.4; Estimated Glomerular Filt Rate 60; Glucose Random 133 mg/dL (60-115); Magnesium 1.4 mg/dL (1.6-2.6); Potassium 3.8 mmol/L (3.3-5.1); Sodium 137 mmol/L (135-145)
--- NOTE | 2024-09-22 11:39 | P.CNNE_ITS ---
History of Present Illness Data of Consult Service Date: 09/22/24 Primary Care Provider: Ramsey Romo MD [facility] Reason for consult: Stroke 89 years old man with a recent left midbrain ischemic infarct was noted to be worsened imaging was repeated. He was unable to provide any history. Review of Systems 2 Review of Systems: Could not be done with him PMF Past Medical History Medical History Diabetes mellitus CHF (congestive heart failure) Sleep apnea Hypertension Afib Family History Family History Other HTN (hypertension) Surgical History Surgical History H/O hand surgery Social History Social History Household Members: Spouse Housing: House Do you presently have visiting nurse or other home services: No Alcohol intake: former Patient Tobacco Use Status: Never used Tobacco Smoked in Last 30 Days: No Second Hand Smoke Exposure: No Use of substances other than those prescribed or required for medical reasons: No Currently Displaying Signs/Symptoms of Drug Intoxication Withdrawal: No Have you been hit, kicked, punched, or otherwise hurt by someone within the past year? If so, by whom?: No Do you feel safe in your current relationship?: Yes Is there a partner from a previous relationship who is making you feel unsafe now?: No Are you made to feel afraid or neglected: No Advance Directives: No Advance Directives Information Provided: Yes Advance Directives Date on File: 06/15/21 Do you have a plan to hurt others: No Plan Recently lost weight without trying: No How much weight loss: Not applicable Eating poorly because of decreased appetite: No Nutrition screen score: 0 Nutrition Risks: On aspiration precautions Poor oral hygiene: No service: Yes Current occupational status: retired Meds Allergies Allergy/AdvReac Type Severity Reaction Status Date / Time No Known Allergies Allergy Verified 09/20/24 12:34 Active Medications: Current Medications Acetaminophen (Acetaminophen 325 Mg Tablet) 650 mg PO Q6H PRN PRN Reason: Pain, Mild (Pain Scale 1-3), fever or headache Acetaminophen (Acetaminophen Supp 650 Mg Supp.Rect) 650 mg NE Q6H PRN PRN Reason: fever Allopurinol (Allopurinol 300 Mg Tablet) 300 mg PO DAILY [facility] Last Admin: 09/22/24 11:35 Dose: Not Given Ascorbic Acid (Ascorbic Acid 500 Mg Tablet) 500 mg PO DAILY [facility] Last Admin: 09/22/24 11:36 Dose: Not Given Aspirin (Aspirin Enteric Coated 81 Mg Tablet.Dr) 81 mg PO DAILY [facility] Last Admin: 09/22/24 11:36 Dose: Not Given Atorvastatin Calcium (Atorvastatin Calcium 40 Mg Tablet) 40 mg PO BEDTIME [facility] Last Admin: 09/21/24 21:34 Dose: 40 mg Ceftriaxone Sodium (Ceftriaxone Sodium 1 Gm Vial) 1 gm IVPUSH Q24H [facility] Last Admin: 09/21/24 16:23 Dose: 1 gm Enoxaparin Sodium (Enoxaparin Sodium 40 Mg/0.4 Ml Syringe) 75 mg SUBCUT Q12H [facility] Last Admin: 09/22/24 08:54 Dose: 75 mg Furosemide (Furosemide 20 Mg Tablet) 20 mg PO DAILY [facility]; Protocol Last Admin: 09/21/24 08:16 Dose: 20 mg Levetiracetam (Keppra) 500 mg in 100 mls @ 400 mls/hr IV Q12H [facility] Last Admin: 09/22/24 10:54 Dose: 400 mls/hr Magnesium Sulfate (Magnesium Sulfate/H2o) 2 gm in 50 mls @ 25 mls/hr IV ONCE ONE Stop: 09/22/24 13:18 Levetiracetam (Levetiracetam 500 Mg Tablet) 500 mg PO BID [facility] Last Admin: 09/21/24 21:34 Dose: 500 mg Magnesium Hydroxide (Milk Of Magnesia 30 Ml Oral.Susp) 30 ml PO DAILY PRN PRN Reason: Constipation Metoprolol Succinate (Metoprolol Succinate Er 100 Mg Tab.Er.24h) 100 mg PO DAILY@1800 [facility]; Protocol Last Admin: 09/21/24 19:15 Dose: 100 mg Metoprolol Tartrate (Metoprolol Tartrate 5 Mg/5 Ml Vial) 5 mg IVPUSH Q6H [facility]; Protocol Ondansetron HCl (Ondansetron Hcl 4 Mg/2 Ml Vial) 4 mg IVPUSH Q8H PRN PRN Reason: Nausea and Vomiting Pantoprazole Sodium (Pantoprazole Sodium 40 Mg/10 Ml Vial) 40 mg IVPUSH DAILY@0630 [facility] Sodium Chloride (0.9 % Sodium Chloride Flush 3 Ml Syringe) 3 ml IVFLUSH QSHIFT [facility] Last Admin: 09/22/24 11:35 Dose: Not Given Vitamin D (Cholecalciferol (Vitamin D3) 10 Mcg Tablet) 10 mcg PO DAILY [facility] Last Admin: 09/22/24 11:36 Dose: Not Given Home Medications ?Medication ?Instructions ?Recorded ?Confirmed ?Last Taken ?Type allopurinol 300 mg tablet 300 mg PO DAILY 09/20/24 09/20/24 Unknown History ascorbic acid (vitamin C) 500 mg 500 mg PO DAILY 09/20/24 09/20/24 Unknown History tablet (Vitamin C) aspirin 81 mg tablet,delayed 81 mg PO DAILY 09/20/24 09/20/24 Unknown History release cetirizine 10 mg tablet (Zyrtec) 10 mg PO DAILY 09/20/24 09/20/24 Unknown History cholecalciferol (vitamin D3) 10 10 mcg PO DAILY 09/20/24 09/20/24 Unknown History mcg (400 unit) tablet (Vitamin D3) furosemide 20 mg tablet 20 mg PO DAILY 09/20/24 09/20/24 Unknown History levetiracetam 500 mg tablet 500 mg PO BID 09/20/24 09/20/24 Unknown History lidocaine 5 % topical patch 1 patch topical DAILY PRN Pain 09/20/24 09/20/24 Unknown History (Lidoderm) metoprolol succinate 100 mg 100 mg PO DAILY@1800 09/20/24 09/20/24 Unknown History tablet,extended release 24 hr multivitamin 1 tab PO DAILY 09/20/24 09/20/24 09/20/24 History omeprazole 20 mg tablet,delayed 20 mg PO DAILY 09/20/24 09/20/24 Unknown History release valsartan 160 mg tablet 160 mg PO BID 09/20/24 09/20/24 Unknown History white petrolatum-mineral oil 57.3 1 appl ophthalmic (eye) BEDTIME 09/20/24 09/20/24 Unknown History %-42.5 % eye ointment (Lubricant Eye) Physical Exam 2 Vital Signs: Vital Signs: Last Vital Signs Temp 99.5 F 09/22/24 11:23 Pulse 56 09/22/24 11:23 Resp 20 09/22/24 11:23 BP 108/58 L 09/22/24 11:23 Pulse Ox 95 09/22/24 11:23 O2 Del Method Room Air 09/22/24 11:23 BMI result Body Mass Index 27.0 Neuro: Other: He is very drowsy but was able to open his eyes made eye contact blurred something that I could not understand. His left eye was droopy. There was no particular gaze deviation. Family was on bedside stating that he was not communicating. Results Labs 09/20/24 12:38 09/22/24 10:48 Labs: BMP 09/22/24 10:48 Sodium 137 Potassium 3.8 Chloride 104 Carbon Dioxide 27 BUN 19 H Creatinine 1.16 Calcium 8.[address] revealed extension of a stroke to lift thalamus area. CTA again did not reveal any obvious large vessel disease. Microbiology Microbiology Results: Microbiology 09/20/24 Unknown Urine clean catch - Clean Catch Midstream Urine Culture - Preliminary Culture in progress. 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 My recommendation is to maintain relatively high normal blood pressure and avoid hypotension. With atrial fibrillation he has a Watchman device, which might be enough to prevent cardiac source of embolism. For stroke prevention, aspirin 81 mg +clopidogrel 75 mg combination is recommended at least for next few months. I also noted that at this time he is unable to swallow and is on full-dose subQ heparin. Once he is able to swallow, he can be converted to anti-platelet therapy. I discussed the situation with the family that his stroke has worsened affecting his language and vision. In addition, he has a mild fever probably from infection. All these things suggested worsening prognosis though the condition was not life-threatening at this time. Procedures Date of Service Date of Service: 09/22/24
[2024-09-22] MEDS: Magnesium Sulfate/H2O 2 GM/50 ML PIGGYBACK IV (11:44)
--- NOTE | 2024-09-22 12:09 | MHC.SL.SWA ---
Speech Pathologist Impression: Risk of aspiration, Moderate oropharyngeal dysphagia, Garbled speech Risk of Aspiration Due to: Neurological Condition Dysphasia Diet Status: DOWNGRADE to NDD1/NTL Liquid Consistency and Strategies for Safe Swallow: Liquid Intake Recommendation: Tamms Thick Liquid Intake Strategies: Small Sips No Straws Liquids by Teaspoon Only Solid Food Consistency: Dietary Recommendations: Pureed (NDD1) Additional Modifications to Solid Foods: Recommend START on PUREED (NDD1) solids and NECTAR THICK liquids via tspn only, pills CRUSHED in PUREE. Patient will need 1:1 feeding. Administer small bites and periodically check oral cavity for pocketing. Alternate bites with sips of liquid to promote clearance. Oral Medication Intake: Crushed with Puree Please contact the pharmacy regarding appropriate crushable or liquid drug formulations that are available whenever modified delivery is recommended. Compensatory Strategies and Precautions to be Taken for Safe Swallow: Sitting Upright (90 deg) No Straw Liquids from Spoon Small Bites and Sips Alternate Liquids/Solids Rate of Ingestion Change Oral Check Supervision While Eating and Drinking for Safe Swallow: Total Assistance (1:1) Swallowing Recommended Treatments: Compens. Strategy Educat. Recommendation for Speech: Inpatient Speech Therapy Speech Therapy through Rehab Facility Comment: SMOG TECHNICIAN will continue to follow during inpatient stay to monitor/re-assess patient's tolerance of modified diet and feeding needs. Patient will likely need continued speech therapy for dysphagia and speech/language at the next level of care. Frequency/Duration: M-F PRN Date Range for Service Req: Timeline to reassess: PRN Professor Of Biblical Studies Clinican/Clinical Fellow: No Supervisory Statement: I have reviewed and agree with the student/clinical fellow's documentation: N/A Speech Language Pathologist: Mari De Leon M.A., [facility]SMOG TECHNICIAN
--- NOTE | 2024-09-22 12:32 | MHC.CM.PN ---
Per Aliza at the [facility] @ [phone], Patient does NOT need [facility] auth to go to [facility]; he would go under his Medicare.
--- NOTE | 2024-09-22 12:45 | P.CONCA_ITS ---
History of Present Illness History of Present Illness Date of Service: 09/22/24 Requesting physician: Dl Martinez Consult reason: atrial fibrillation and other (CVA) Chief complaint: Right sided deficits, moments of unresponsiveness Narrative: I was consulted to see Nishant in cardiology consultation today for new onset CVA. Noted on imaging to have mid brain lesion which is evolving with some edema as well as possible thalamic CVA as well which is acute. Patient presented to the hospital with difficulty in walking and focal right lower extremity weakness. Patient then gradually had altered mental status and was mumbling incoherently and therefore was brought to the emergency room with right-sided weakness and right facial droop. History can not be obtained from the patient. No obvious cardiac symptoms. EKGs did show atrial fibrillation with slow ventricular response. Patient has prior history of atrial fibrillation status post Watchman device in 2021, found a NATALY at the time of Watchman deployment and appeared like he had preserved biventricular function with normally implanted Watchman device. This was placed in the setting of a GI bleed. He was then managed appropriately post Watchman and currently on aspirin therapy. Patient has not had any recurrent GI bleed. Had imaging performed which was diffuse and significant by lateral carotid vascular disease and shows acute infarct involving the medial aspect of left midbrain as well as a new lesion in the thalamus. Patient not providing any history. Otherwise cardiac aquino stable. Review of Systems 2 Review of Systems: Yes Unobtainable due to mental status PMFSH Past Medical History Medical History Diabetes mellitus CHF (congestive heart failure) Sleep apnea Hypertension Afib Family History Family History Other HTN (hypertension) Surgical History Surgical History H/O hand surgery Social History Social History Household Members: Spouse Housing: House Do you presently have visiting nurse or other home services: No Alcohol intake: former Patient Tobacco Use Status: Never used Tobacco Smoked in Last 30 Days: No Second Hand Smoke Exposure: No Use of substances other than those prescribed or required for medical reasons: No Currently Displaying Signs/Symptoms of Drug Intoxication Withdrawal: No Have you been hit, kicked, punched, or otherwise hurt by someone within the past year? If so, by whom?: No Do you feel safe in your current relationship?: Yes Is there a partner from a previous relationship who is making you feel unsafe now?: No Are you made to feel afraid or neglected: No Advance Directives: No Advance Directives Information Provided: Yes Advance Directives Date on File: 06/15/21 Do you have a plan to hurt others: No Plan Recently lost weight without trying: No How much weight loss: Not applicable Eating poorly because of decreased appetite: No Nutrition screen score: 0 Nutrition Risks: On aspiration precautions Poor oral hygiene: No service: Yes Current occupational status: retired [employer] Allergies Allergy/AdvReac Type Severity Reaction Status Date / Time No Known Allergies Allergy Verified 09/20/24 12:34 Active Medications: Current Medications Acetaminophen (Acetaminophen 325 Mg Tablet) 650 mg PO Q6H PRN PRN Reason: Pain, Mild (Pain Scale 1-3), fever or headache Acetaminophen (Acetaminophen Supp 650 Mg Supp.Rect) 650 mg ID Q6H PRN PRN Reason: fever Allopurinol (Allopurinol 300 Mg Tablet) 300 mg PO DAILY [facility] Last Admin: 09/22/24 11:35 Dose: Not Given Ascorbic Acid (Ascorbic Acid 500 Mg Tablet) 500 mg PO DAILY [facility] Last Admin: 09/22/24 11:36 Dose: Not Given Aspirin (Aspirin Enteric Coated 81 Mg Tablet.Dr) 81 mg PO DAILY [facility] Last Admin: 09/22/24 11:36 Dose: Not Given Atorvastatin Calcium (Atorvastatin Calcium 40 Mg Tablet) 40 mg PO BEDTIME [facility] Last Admin: 09/21/24 21:34 Dose: 40 mg Ceftriaxone Sodium (Ceftriaxone Sodium 1 Gm Vial) 1 gm IVPUSH Q24H [facility] Last Admin: 09/21/24 16:23 Dose: 1 gm Enoxaparin Sodium (Enoxaparin Sodium 40 Mg/0.4 Ml Syringe) 75 mg SUBCUT Q12H [facility] Last Admin: 09/22/24 08:54 Dose: 75 mg Furosemide (Furosemide 20 Mg Tablet) 20 mg PO DAILY [facility]; Protocol Last Admin: 09/22/24 11:45 Dose: Not Given Levetiracetam (Keppra) 500 mg in 100 mls @ 400 mls/hr IV Q12H [facility] Last Infusion: 09/22/24 11:43 Dose: Infused Magnesium Sulfate (Magnesium Sulfate/H2o) 2 gm in 50 mls @ 25 mls/hr IV ONCE ONE Stop: 09/22/24 13:18 Last Admin: 09/22/24 11:44 Dose: 25 mls/hr Levetiracetam (Levetiracetam 500 Mg Tablet) 500 mg PO BID [facility] Last Admin: 09/22/24 11:45 Dose: Not Given Magnesium Hydroxide (Milk Of Magnesia 30 Ml Oral.Susp) 30 ml PO DAILY PRN PRN Reason: Constipation Metoprolol Succinate (Metoprolol Succinate Er 100 Mg Tab.Er.24h) 100 mg PO DAILY@1800 [facility]; Protocol Last Admin: 09/21/24 19:15 Dose: 100 mg Metoprolol Tartrate (Metoprolol Tartrate 5 Mg/5 Ml Vial) 5 mg IVPUSH Q6H [facility]; Protocol Ondansetron HCl (Ondansetron Hcl 4 Mg/2 Ml Vial) 4 mg IVPUSH Q8H PRN PRN Reason: Nausea and Vomiting Pantoprazole Sodium (Pantoprazole Sodium 40 Mg/10 Ml Vial) 40 mg IVPUSH DAILY@0630 [facility] Sodium Chloride (0.9 % Sodium Chloride Flush 3 Ml Syringe) 3 ml IVFLUSH QSHIFT [facility] Last Admin: 09/22/24 11:35 Dose: Not Given Vitamin D (Cholecalciferol (Vitamin D3) 10 Mcg Tablet) 10 mcg PO DAILY [facility] Last Admin: 09/22/24 11:36 Dose: Not Given Home Medications ?Medication ?Instructions ?Recorded ?Confirmed ?Last Taken ?Type allopurinol 300 mg tablet 300 mg PO DAILY 09/20/24 09/20/24 Unknown History ascorbic acid (vitamin C) 500 mg 500 mg PO DAILY 09/20/24 09/20/24 Unknown History tablet (Vitamin C) aspirin 81 mg tablet,delayed 81 mg PO DAILY 09/20/24 09/20/24 Unknown History release cetirizine 10 mg tablet (Zyrtec) 10 mg PO DAILY 09/20/24 09/20/24 Unknown History cholecalciferol (vitamin D3) 10 10 mcg PO DAILY 09/20/24 09/20/24 Unknown History mcg (400 unit) tablet (Vitamin D3) furosemide 20 mg tablet 20 mg PO DAILY 09/20/24 09/20/24 Unknown History levetiracetam 500 mg tablet 500 mg PO BID 09/20/24 09/20/24 Unknown History lidocaine 5 % topical patch 1 patch topical DAILY PRN Pain 09/20/24 09/20/24 Unknown History (Lidoderm) metoprolol succinate 100 mg 100 mg PO DAILY@1800 09/20/24 09/20/24 Unknown History tablet,extended release 24 hr multivitamin 1 tab PO DAILY 09/20/24 09/20/24 09/20/24 History omeprazole 20 mg tablet,delayed 20 mg PO DAILY 09/20/24 09/20/24 Unknown History release valsartan 160 mg tablet 160 mg PO BID 09/20/24 09/20/24 Unknown History white petrolatum-mineral oil 57.3 1 appl ophthalmic (eye) BEDTIME 09/20/24 09/20/24 Unknown History %-42.5 % eye ointment (Lubricant Eye) Physical Exam 2 Vital Signs: Vital Signs: Last Vital Signs Temp 99.5 F 09/22/24 11:23 Pulse 56 09/22/24 11:23 Resp 20 09/22/24 11:23 BP 108/58 L 09/22/24 11:23 Pulse Ox 95 09/22/24 11:23 O2 Del Method Room Air 09/22/24 11:23 BMI result Body Mass Index 27.0 Const: General: comfortable and patient obtunded Nutritional Appearance: a verage body habitus Orientation/consciousness: patient obtunded HEENT: Head: Yes normocephalic and Yes atraumatic Neck: Neck: Yes trachea midline, Yes supple and Yes no JVD Resp: Effort & Inspection: decreased respiratory effort Auscultation: clear to auscultation bilaterally and diminished lung sounds Cardio: Jugular venous distension: no JVD Rhythm: abnormal rhythm irregularly irregular Heart sounds: S1 normal heart sound present, S2 normal heart sound present, no click, no gallops and no murmurs GI: Auscultation: normal bowel sounds Skin: General skin exam: no rashes or lesions noted Neuro: General: patient obtunded Extrem: General: Yes no clubbing, cyanosis or edema Objective Labs and Meds 09/20/24 12:38 09/22/24 10:48 Lab results: Laboratory Results - last 24 hr 09/22/24 10:48 Sodium 137 Potassium 3.8 Chloride 104 Carbon Dioxide 27 Anion Gap 10 L BUN 19 H Creatinine 1.16 Estim Creat Clear Calc 40.4 Estimated GFR 60 Random Glucose 133 H Calcium 8.6 D Magnesium 1.4 L* Imaging Radiologist's impression: Impressions Head CT 09/22/24 09:03 IMPRESSION: 1. Hypodensity in the left midbrain likely corresponds with progression and mild edema of small acute infarct previously seen on brain MR. There is also asymmetric heterogeneous hypodensity in the left thalamus which is new from prior and could represent acute infarction. If clinically indicated, consider MRI for further assessment. 2. No acute intracranial hemorrhage. After telephone disconnection and multiple pages, these results were discussed with Dl Martinez MD by telephone on 09/22/2024 at 9:38 AM and it was ascertained that the content of the report was understood at the time of direct communication. Electronically signed by: Maggy Logan DO 09/22/2024 09:42 AM [facility] Head/Neck CTA 09/22/24 09:05 IMPRESSION: 1. Unchanged age related cerebral atrophy and ventriculomegaly. 2. Unchanged subacute medial left midbrain cerebral infarction and more extensive lateral left cerebral peduncle acute infarction, not evident on CT scan and MRI of brain on 09/20/2024, compatible with progression of acute brainstem infarction. 3. Unchanged, No intracranial hemorrhage or skull fracture is seen. 3. No evidence of space occupying or enhancing intracranial mass lesion could be found. EXAMINATION: CT angiogram of brain. CLINICAL INFORMATION: Cerebral vascular disease. Right-sided flaccid paralysis, aphasia. COMPARISON: CT angiogram of head and neck on 09/20/2024 TECHNIQUE: CT angiogram of the brain was performed C7 following the administration of 70 mL of Omnipaque 350. Coronal and sagittal images were reconstructed from axial image data. 3-dimensional volumetric maximum intensity projection images in multiple planes were reconstructed on an independent workstation. This was performed under concurrent direct supervision and monitoring by radiologist. Reformatted maximum intensity projection angiographic images of the brain were reconstructed on an independent workstation. This CT examination was performed using dose optimization techniques as appropriate, variously including the following: *Automated exposure control *Adjustment of mA and/or kV according to patient size (this includes techniques or standardized protocols for targeted exams where dose is matched to indication/reason for exam; i.e. extremities or head) *Use of iterative reconstruction technique DLP: 1594 mGy-cm FINDINGS: There is normal visualization of bilateral anterior, middle and posterior cerebral arteries, internal carotid arteries, basilar artery and terminal portions of bilateral vertebral arteries. Anterior communicating artery is normal. Bilateral posterior communicating arteries are normal. Bilateral internal carotid siphons are smoothly patent. Extensive tram track shape atherosclerotic calcifications are seen in bilateral internal carotid siphons without causing hemodynamically significant stenosis. Timing of the bolus allows assessment of the major dural venous sinuses. The major cerebral venous sinuses show normal contrast filling. IMPRESSION: 1. Unchanged bilateral internal carotid siphon extensive atherosclerotic calcifications without hemodynamically significant stenosis. 2. No focal cerebral arterial lesion or significant arterial stenosis is seen. EXAMINATION: CT angiogram of neck. CLINICAL INFORMATION: Cerebral vascular disease, Right-sided flaccid paralysis, aphasia. COMPARISON: CT angiogram of head and neck on 09/20/2024 TECHNIQUE: Contrast enhanced CT angiogram of the neck and superior mediastinum was performed following the administration of 70 mL of Omnipaque 350. 3-dimensional volumetric maximum intensity projection images in multiple planes were reconstructed on an independent workstation. This was performed under concurrent direct supervision and monitoring by radiologist. Reformatted maximum intensity projection angiographic images of the neck and superior mediastinum were reconstructed on an independent workstation. Magnified images of carotid bifurcations were reconstructed. This CT examination was performed using dose optimization techniques as appropriate, variously including the following: *Automated exposure control *Adjustment of mA and/or kV according to patient size (this includes techniques or standardized protocols for targeted exams where dose is matched to indication/reason for exam; i.e. extremities or head) *Use of iterative reconstruction technique DLP: 1594 mGy-cm STENOSIS MEASUREMENT: Degree of stenosis was measured and calculated based on NASCET criteria. Carotid stenosis reference using NASCET criteria: % stenosis = (1 - narrowest ICA diameter/diameter of distal cervical ICA) x 100. Mild - < 50% stenosis. Moderate - 50-69% stenosis. Severe - 70-94% stenosis. Near occlusion - 95-99% stenosis. Occluded - 100% stenosis. FINDINGS: RIGHT SIDE: Right internal carotid artery: Extensive large atherosclerotic calcifications are seen at the origin and bulb and proximal right internal carotid artery causing up to 56.9% stenosis in the right internal carotid bulb.. Right external carotid artery: Smoothly patent. Right common carotid artery: Smoothly patent. Extensive calcified atherosclerotic plaques are seen at bifurcation without causing hemodynamically significant stenosis. Right vertebral artery: Smoothly patent. LEFT SIDE: Left internal carotid artery: Smoothly patent. Extensive atherosclerotic calcifications are seen at origin and bulb of left internal carotid artery without causing hemodynamically significant stenosis. Left external carotid artery: Smoothly patent. Large calcified atherosclerotic plaques are present at the origin without causing hemodynamically significant stenosis. Left common carotid artery: Smoothly patent. Scattered atherosclerotic calcifications are present extending to the bifurcation without causing hemodynamically significant stenosis. Left vertebral artery: Smoothly patent and dominant. At the superior mediastinum, the visualized right innominate artery, bilateral subclavian arteries and common carotid arteries are smoothly patent starting from the origin at the aortic arch. A bovine arch is present with the right innominate artery and the left common carotid artery sharing a common origin from the aortic arch. Extensive scattered calcified atherosclerotic plaques are seen in the major arteries and aortic arch without causing hemodynamically significant stenosis. Multilevel advanced cervical spondylosis including advanced C4-C5 to C6-C7 degenerative cervical disc disease is seen. IMPRESSION: 1. Unchanged extensive bilateral common carotid and internal carotid arteries atherosclerotic calcifications. Unchanged moderate proximal right internal carotid artery stenosis. No evidence of significant left carotid stenosis. 2. Unchanged, Patent bilateral vertebral arteries with left-sided dominance. Electronically signed by: Carolann Chacon MD 09/22/2024 10:26 AM [facility] Assessment and Plan (1) Acute CVA (cerebrovascular accident): Status: Acute Acute CVA in the patient with chronic persistent atrial fibrillation status post Watchman device. Appears to involve multiple different parts of the brain including mid brain as well as thalamus. Neurologist been consulted. Possible that this could be cardioembolic although it is also possible that this could be vascular including from central aortic location. Will defer management to Neurology team. If felt that this was cardioembolic, should consider oral anticoagulation therapy if there are no contraindications. He does have diffuse vascular disease. Overall prognosis is guarded. (2) Afib: Status: Acute Atrial fibrillation currently rate controlled. Status post Watchman device. Unclear as to the etiology of his CVA. If felt to be cardioembolic consider oral anticoagulation therapy. Still possible to have a cardioembolic CVA in the patient with Watchman device. Will sign of the case. Thank you for allowing me to partake in his care Procedures Date of Service Date of Service: 09/22/24
--- NOTE | 2024-09-22 13:02 | P.PNIM_ITS ---
Subjective Subjective Date of Service: 09/22/24 Interval History: this AM noted to be aphasic, RUE weak Review of Systems Review of Systems: Yes Unobtainable due to mental status Physical Exam 2 Vital Signs: Vital Signs: Last Vital Signs Temp 99.5 F 09/22/24 11:23 Pulse 56 09/22/24 11:23 Resp 20 09/22/24 11:23 BP 108/58 L 09/22/24 11:23 Pulse Ox 95 09/22/24 11:23 O2 Del Method Room Air 09/22/24 11:23 BMI result Body Mass Index 27.0 Gen: in no acute distress HEENT: sclera anicteric, moist mucus membranes Neck: supple Lungs: clear to auscultation bilaterally Heart: irregular, no murmurs Abd: soft, non-tender, non-distended Ext: no edema Skin: warm/well-perfused Neuro: alert, following commands, L eyelid droop, R facial droop, RUE flaccid Psych: appropriate affect Objective Data Active Medications Acetaminophen (Acetaminophen 325 Mg Tablet) 650 mg PO Q6H PRN PRN Reason: Pain, Mild (Pain Scale 1-3), fever or headache Allopurinol (Allopurinol 300 Mg Tablet) 300 mg PO DAILY [facility] Last Admin: 09/22/24 11:35 Dose: Not Given Documented By: SELINA Non-Admin Reason: NPO Ascorbic Acid (Ascorbic Acid 500 Mg Tablet) 500 mg PO DAILY [facility] Last Admin: 09/22/24 11:36 Dose: Not Given Documented By: SELINA Non-Admin Reason: NPO Aspirin (Aspirin Enteric Coated 81 Mg Tablet.) 81 mg PO DAILY [facility] Last Admin: 09/22/24 11:36 Dose: Not Given Documented By: SELINA Non-Admin Reason: NPO Atorvastatin Calcium (Atorvastatin Calcium 40 Mg Tablet) 40 mg PO BEDTIME [facility] Last Admin: 09/21/24 21:34 Dose: 40 mg Documented By: SUMMER Ceftriaxone Sodium (Ceftriaxone Sodium 1 Gm Vial) 1 gm IVPUSH Q24H [facility] Last Admin: 09/21/24 16:23 Dose: 1 gm Documented By: CLAUDETTE Clopidogrel Bisulfate (Clopidogrel Bisulfate 75 Mg Tablet) 75 mg PO DAILY [facility] Furosemide (Furosemide 20 Mg Tablet) 20 mg PO DAILY [facility]; Protocol Last Admin: 09/22/24 11:45 Dose: Not Given Documented By: SELINA Non-Admin Reason: NPO Magnesium Sulfate (Magnesium Sulfate/H2o) 2 gm in 50 mls @ 25 mls/hr IV ONCE ONE Stop: 09/22/24 13:18 Last Admin: 09/22/24 11:44 Dose: 25 mls/hr Documented By: SELINA Levetiracetam (Levetiracetam 500 Mg Tablet) 500 mg PO BID [facility] Last Admin: 09/22/24 11:45 Dose: Not Given Documented By: SELINA Non-Admin Reason: NPO Magnesium Hydroxide (Milk Of Magnesia 30 Ml Oral.Susp) 30 ml PO DAILY PRN PRN Reason: Constipation Metoprolol Succinate (Metoprolol Succinate Er 100 Mg Tab.Er.24h) 100 mg PO DAILY@1800 MICHEL; Protocol Last Admin: 09/21/24 19:15 Dose: 100 mg Documented By: CLAUDETTE Omeprazole (Omeprazole 20 Mg Capsule.Dr) 20 mg PO DAILY@0630 MICHEL Ondansetron HCl (Ondansetron Hcl 4 Mg/2 Ml Vial) 4 mg IVPUSH Q8H PRN PRN Reason: Nausea and Vomiting Sodium Chloride (0.9 % Sodium Chloride Flush 3 Ml Syringe) 3 ml IVFLUSH QSHIFT [facility] Last Admin: 09/22/24 11:35 Dose: Not Given Documented By: SELINA Non-Admin Reason: Previously Administered Vitamin D (Cholecalciferol (Vitamin D3) 10 Mcg Tablet) 10 mcg PO DAILY [facility] Last Admin: 09/22/24 11:36 Dose: Not Given Documented By: SELINA Non-Admin Reason: NPO Labs 09/20/24 12:38 09/22/24 10:48 Labs: Laboratory Results - last 24 hr 09/22/24 10:48 Anion Gap 10 L Estim Creat Clear Calc 40.4 Estimated GFR 60 Random Glucose 133 H Calcium 8.6 D Magnesium 1.4 L* ITS Impressions Chest X-Ray 09/20/24 12:18 IMPRESSION: Chronic interstitial lung disease. Mild interstitial lung edema cannot be excluded. Elevated left hemidiaphragm, nonspecific. Electronically signed by: Atif Avalos MD 09/20/2024 02:[address] 09/20/24 12:19 IMPRESSION: 1. No acute intracranial hemorrhage or territorial infarction. 2. Chronic microangiopathy and generalized cerebral volume loss. These results were discussed with Ale Klein MD by telephone on 09/20/2024 at 12:32 PM and it was ascertained that the content of the report was understood at the time of direct communication. Electronically signed by: Maggy Logan DO 09/20/2024 12:40 PM EST RP Head/Neck CTA 09/20/24 13:24 IMPRESSION: 1. CTA head demonstrates no large vessel occlusion, saccular aneurysm, or dissection. 2. CTA neck demonstrates no hemodynamically significant stenosis, dissection, or aneurysm. Electronically signed by: Berny Knapp MD 09/20/2024 02:13 PM EST RP Brain MRI 09/20/24 15:05 IMPRESSION: 1. Subtle acute infarct involving the left midbrain medially. No acute intracranial hemorrhage. 2. Global cerebral atrophy and chronic microangiopathy. Electronically signed by: Berny Knapp MD 09/20/2024 03:55 PM EST RP Head CT 09/22/24 09:03 IMPRESSION: 1. Hypodensity in the left midbrain likely corresponds with progression and mild edema of small acute infarct previously seen on brain MR. There is also asymmetric heterogeneous hypodensity in the left thalamus which is new from prior and could represent acute infarction. If clinically indicated, consider MRI for further assessment. 2. No acute intracranial hemorrhage. After telephone disconnection and multiple pages, these results were discussed with Dl Martinez MD by telephone on 09/22/2024 at 9:38 AM and it was ascertained that the content of the report was understood at the time of direct communication. Electronically signed by: Maggy Logan DO 09/22/2024 09:42 AM EST RP Head/Neck CTA 09/22/24 09:05 IMPRESSION: 1. Unchanged age related cerebral atrophy and ventriculomegaly. 2. Unchanged subacute medial left midbrain cerebral infarction and more extensive lateral left cerebral peduncle acute infarction, not evident on CT scan and MRI of brain on 09/20/2024, compatible with progression of acute brainstem infarction. 3. Unchanged, No intracranial hemorrhage or skull fracture is seen. 3. No evidence of space occupying or enhancing intracranial mass lesion could be found. EXAMINATION: CT angiogram of brain. CLINICAL INFORMATION: Cerebral vascular disease. Right-sided flaccid paralysis, aphasia. COMPARISON: CT angiogram of head and neck on 09/20/2024 TECHNIQUE: CT angiogram of the brain was performed C7 following the administration of 70 mL of Omnipaque 350. Coronal and sagittal images were reconstructed from axial image data. 3-dimensional volumetric maximum intensity projection images in multiple planes were reconstructed on an independent workstation. This was performed under concurrent direct supervision and monitoring by radiologist. Reformatted maximum intensity projection angiographic images of the brain were reconstructed on an independent workstation. This CT examination was performed using dose optimization techniques as appropriate, variously including the following: *Automated exposure control *Adjustment of mA and/or kV according to patient size (this includes techniques or standardized protocols for targeted exams where dose is matched to indication/reason for exam; i.e. extremities or head) *Use of iterative reconstruction technique DLP: 1594 mGy-cm FINDINGS: There is normal visualization of bilateral anterior, middle and posterior cerebral arteries, internal carotid arteries, basilar artery and terminal portions of bilateral vertebral arteries. Anterior communicating artery is normal. Bilateral posterior communicating arteries are normal. Bilateral internal carotid siphons are smoothly patent. Extensive tram track shape atherosclerotic calcifications are seen in bilateral internal carotid siphons without causing hemodynamically significant stenosis. Timing of the bolus allows assessment of the major dural venous sinuses. The major cerebral venous sinuses show normal contrast filling. IMPRESSION: 1. Unchanged bilateral internal carotid siphon extensive atherosclerotic calcifications without hemodynamically significant stenosis. 2. No focal cerebral arterial lesion or significant arterial stenosis is seen. EXAMINATION: CT angiogram of neck. CLINICAL INFORMATION: Cerebral vascular disease, Right-sided flaccid paralysis, aphasia. COMPARISON: CT angiogram of head and neck on 09/20/2024 TECHNIQUE: Contrast enhanced CT angiogram of the neck and superior mediastinum was performed following the administration of 70 mL of Omnipaque 350. 3-dimensional volumetric maximum intensity projection images in multiple planes were reconstructed on an independent workstation. This was performed under concurrent direct supervision and monitoring by radiologist. Reformatted maximum intensity projection angiographic images of the neck and superior mediastinum were reconstructed on an independent workstation. Magnified images of carotid bifurcations were reconstructed. This CT examination was performed using dose optimization techniques as appropriate, variously including the following: *Automated exposure control *Adjustment of mA and/or kV according to patient size (this includes techniques or standardized protocols for targeted exams where dose is matched to indication/reason for exam; i.e. extremities or head) *Use of iterative reconstruction technique DLP: 1594 mGy-cm STENOSIS MEASUREMENT: Degree of stenosis was measured and calculated based on NASCET criteria. Carotid stenosis reference using NASCET criteria: % stenosis = (1 - narrowest ICA diameter/diameter of distal cervical ICA) x 100. Mild - < 50% stenosis. Moderate - 50-69% stenosis. Severe - 70-94% stenosis. Near occlusion - 95-99% stenosis. Occluded - 100% stenosis. FINDINGS: RIGHT SIDE: Right internal carotid artery: Extensive large atherosclerotic calcifications are seen at the origin and bulb and proximal right internal carotid artery causing up to 56.9% stenosis in the right internal carotid bulb.. Right external carotid artery: Smoothly patent. Right common carotid artery: Smoothly patent. Extensive calcified atherosclerotic plaques are seen at bifurcation without causing hemodynamically significant stenosis. Right vertebral artery: Smoothly patent. LEFT SIDE: Left internal carotid artery: Smoothly patent. Extensive atherosclerotic calcifications are seen at origin and bulb of left internal carotid artery without causing hemodynamically significant stenosis. Left external carotid artery: Smoothly patent. Large calcified atherosclerotic plaques are present at the origin without causing hemodynamically significant stenosis. Left common carotid artery: Smoothly patent. Scattered atherosclerotic calcifications are present extending to the bifurcation without causing hemodynamically significant stenosis. Left vertebral artery: Smoothly patent and dominant. At the superior mediastinum, the visualized right innominate artery, bilateral subclavian arteries and common carotid arteries are smoothly patent starting from the origin at the aortic arch. A bovine arch is present with the right innominate artery and the left common carotid artery sharing a common origin from the aortic arch. Extensive scattered calcified atherosclerotic plaques are seen in the major arteries and aortic arch without causing hemodynamically significant stenosis. Multilevel advanced cervical spondylosis including advanced C4-C5 to C6-C7 degenerative cervical disc disease is seen. IMPRESSION: 1. Unchanged extensive bilateral common carotid and internal carotid arteries atherosclerotic calcifications. Unchanged moderate proximal right internal carotid artery stenosis. No evidence of significant left carotid stenosis. 2. Unchanged, Patent bilateral vertebral arteries with left-sided dominance. Electronically signed by: Carolann Chacon MD 09/22/2024 10:26 AM EST RP Microbiology Microbiology Results: Microbiology 09/20/24 Unknown Urine Culture - Preliminary Urine clean catch - Clean Catch Midstream Gram negative lavonne Assessment and Plan (1) Acute CVA (cerebrovascular accident): Status: Acute Plan d3 89yo M with AF s/p Watchman, HTN, CHF unknown EF, seizure disorder, SWATHI on CPAP presenting after R-sided facial droop, RLE weakness which have resolved; found to have subtle acute L midbrain stroke which has progressed and now involves the L thalamus acute CVA - presented out of tPA window. 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 [employer] evaluation: NDD1 solids, nectar liquids NSVT - 9 beats on telemetry; replete Mg; metoprolol to resume when period of permissive hypertension ends - Cardiology consultation - TTE 09/21/24: 1. Normal LV ejection fraction of 60 65% 2. At least mildly dilated left atrium 3. Mild aortic regurgitation 4. Upper limits of normal RV systolic pressure 5. Mildly dilated ascending aorta at 3.8 cm hypoMg - replete [1.4]; recheck in AM atrial fibrillation - not on AC due to hx GI bleed with anemia; has Watchman device - continue metoprolol succinate after period of permissive hypertension UTI - ceftriaxone 09/20-, follow UCx growing GNRs seizure disorder - levetiracetam HF unknown EF HTN - hold furosemide, valsartan, and metoprolol succinate SWATHI - CPAP at night gout - allopurinol VTE ppx - enoxaparin dispo - eventual AIR In my clinical judgment, the patient requires continued inpatient hospitalization for the following reasons: acute CVA evaluation Total time managing care of this patient today: 55 minutes. Quality Stroke Does the patient have a stroke diagnosis?: Yes Reason for No Anti-thrombotic by Day Two: Contraindicated (Last known well time yesterday -- outside of tNK window.) VTE Prior VTE?: No VTE Risk Level:: Medical - moderate - high VTE Device Contraindication: Treatment Not Indicated VTE Drug Contraindication: N/A - Med Ordered
--- OUTSIDE RECORDS SUMMARY | 2024-09-22 14:03 | XMS_ITS | Patient Health Record ---
Author Organization [facility] Address [address] [place] [address] Care Team Providers Care Smash Fixer Name Role Phone SHAYAN Dailey Primary Care Provider Beni Grimes Jr Unavailable [phone] Ramsey Romo Unavailable Unavailable ALLERGIES No Known Allergies REASON FOR REFERRAL No Information MEDICATIONS Medication SIG (Take, Route, Frequency, Duration) Notes Start Date End Date Status Move Free [facility] Advance - as directed Orally Active ZyrTEC Childrens Allergy 5 MG/5ML as directed Orally Active levETIRAcetam 500 MG 1 tablet Orally lita ry 12 hrs for 30 day(s) Active Aspirin Adult Low Dose 81 MG 1 tablet Or ally Once a day for 30 day(s) Active Valsartan 160 MG 1 tablet Orally twic e a day Active Toprol XL 100 MG 1 tablet Orally at night Active Omeprazole 20 MG 1 Orally Once a day for 90 days 04/22/2022 Active Keppra Active Furosemide 20 MG 1 tablet Orally Once a day Active Mens Multivitamin Ac tive Vitamin C Active Vitamin D Active Allopurinol 300 MG 1 tablet Orally Once a day Active Flax Seed Oil Active IMMUNIZATIONS Vaccine Route Administration Date Status [...] Notes Problem Duodenitis (K29.80) Active confirmed Duodenitis (91043894) Problem Iron deficiency anemia due to chronic blood loss (D50.0) Active confirmed Iron deficiency anemia due to chronic blood loss (347123738) Problem Erosive esophagitis (K22.10) Active confirmed 45808441 Problem Iron deficiency anemia, unspecified iron deficiency anemia type (D50.9) Active confirmed 07098577 Problem Anemia, unspecified type (D64.9) Active confirmed 741131691 Problem Chronic gastritis (K29.50) Active confirmed Chronic gastritis (1962945) VITAL SIGNS Blood pressure diastolic 00 mm Hg 09/14/2024 Height 65.25 in 09/14/2024 Blood pressure systolic 00 mm Hg 09/14/2024 Weight 175 lbs 09/14/2024 BMI 28.90 kg/m2 09/14/2024 Encounters Encounter Location Date Provider Diagnosis [facility] [address] [place] [address] 09/14/2024 Beni Angeles Jr Erosive esophagitis K22.10 and Anemia, unspecified type D64.9 [facility] [address] [place] [address] 09/12/2024 Beni Angeles Jr ASSESSMENTS Encounter Date Diagnosis Assessment Notes Treatment Notes Treatment Clinical Notes 09/14/2024 Erosive esophagitis (ICD-10 - K22.10) 09/14/2024 Anemia, unspecified type (ICD-10 - D64.9) PLAN OF TREATMENT Pending Test Test Name Order Date COLONOSCOPY WITH BIOPSY 08/26/2011 IRON + IBC (FE) 09/16/2023 FERRITIN 09/16/2023 CBC w/o DIFF 09/16/2023 Next Appt Details Provider Name:Beni mcghee Jr, 09/13/2025 01:15:00 PM, [address], [address], [place], [address], Insurance Providers Payer Name Payer Address Payer Phone Subscriber Number Group Number Insured Name Patient Relationship to Insured Coverage Start Date Coverage End Date MEDICARE OF [facility] [address] [place], [place] [id number] ERIC YIP Self - patient is the insured [employer] [address] [place] [address] [id number] ERIC YIP Self - patient is the insured MEDICAL (GENERAL) HISTORY Medical History History ICD Code Hypertension Hyperlipidemia Gout A. fib, watchman procedure, [facility]ology [facility] SWATHI/CPAP Iron deficiency anemia seizures EGD 06/21, erosive esophagitis/gastritis/ duodenitis Colonoscopy 06/21, small tubu lar adenoma, diverticulosis, internal hemorrhoids Surgical History Surgery Date(Month/Year) foot surgery appendectomy age 20 hand surgery watchman Hospitalization History Reason Date(Month/Year)
--- OUTSIDE RECORDS SUMMARY | 2024-09-22 14:03 | XMS_ITS | Continuity of Care Document ---
Author Organization [facility] Address [address] [place] [address]- Care Team Providers Care Wheel Setter Name Role Phone Yaw WEBSTER, Josefa Morley Primary Care Physician [phone] Encounter 08/16/24 - 08/23/24 [facility] [address], [address] [place] [address]- Attending Physician: Jorge Posey MD Admitting Physician: Jorge Posey MD Referring Physician: Jorge Posey MD Allergies, Adverse Reactions, Alerts No Known [...] Date: 02/17/22 Status: Ordered Problem List Condition Confirmation Course Effective Dates Status Health St atus Informant Obese class I Confirmed Active Atrial fibrillation, persistent Confirmed Active Results Radiology Reports * Exam Date Time Procedure Performing Provider Status 08/16/24 3:35 PM Chictini Alex Morocho; Auth (Verified) Notes: (Chictini) Reason For Exam: Benign neoplasm of left kidney RESULT: [employer] Reason: Benign neoplasm of left kidney COMPARISON: 08/19/2023 Study performed at [facility], [address] [place] [address], [place], [place] FINDINGS: Right kidney: 10.4 cm in length. No hydronephrosis. Right renal cysts. Possible 0.5 cm echogenic lesion in the upper pole of the right kidney. 0.6 cm shadowing echogenic focus in the lower pole of the right kidnay Left kidney: 11.4 cm in length. No hydronephrosis. Left renal cyst. 0.8 x 0.7 x 0.8 cm echogenic lesion in the lower pole of the left kidney. 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 0.5 cm echogenic focus in the right kidney could be a second small angiomyolipoma or artifact 0.6 cm shadowing echogenic focus in the right kidney is consistent with a nonobstructing stone. Bilateral renal cysts WSN: [id number] Ordering Physician: Jorge Posey Dictated By: Jorge Carr MD Dictated Date/Time: 08/16/24 4:54 pm Reviewed By: Jorge Carr MD Signed By: Jorge Carr MD Signed Date/Time: 08/16/24 4:54 pm Transcribed By: JUSTIN Transcribed Date/Time: 08/16/24 4:49 pm Patient Care team information Care Team Personnel Name: Josefa Tidwell MD Position: Reference Physician Member Role: PCP Address: Address: [address] [place] [address] [address] [place] [address]- Name: Jorge Posey MD [facility] Phys[facility] - Urology Med Service: Urology Member Role: Ordering Physician Address: Address: [address] [facility], [place] [address]- [place] Care Team Related Persons Name: AURORA YIP Address: home [address] [place] [address]
--- OUTSIDE RECORDS SUMMARY | 2024-09-22 14:03 | XMS_ITS ---
Author Organization [facility] Address [address] [place] [address] Care Team Providers Care Site Project Manager Name Role Phone SHAYAN Dailey Primary Care Provider Beni Grimes Jr Unavailable ClarissaRowdyRamsey Unavailable Unavailable ALLERGIES No Known Allergies REASON FOR VISIT Patient presents today for anemia MEDICATIONS Medication SIG (Take, Route, Frequency, Duration) Notes Start Date End Date Status Furosemide 20 MG 1 tablet Orally Once a day Active Toprol XL 100 MG 1 tablet Orally Once a day Active Valsartan 160 MG 1 tablet Orally Once a day for 30 day(s) Active Omeprazole 20 MG 1 capsule 30 minutes before morning meal Orally twice a day for 30 days 04/22/2022 Active Allopurinol 300 MG 1 tablet Orally Once a day Active Vitamin C Active ZyrTEC Childrens Allergy 5 MG/5ML as directed Orally Active Move Free [facility] Advance - as directed Orally Active Aspirin Adult Low Dose 81 MG 1 tablet Or ally Once a day for 30 day(s) Active levETIRAcetam 500 MG 1 tablet Orally lita ry 12 hrs for 30 day(s) Active Vitamin D Active Keppra Active Mens Multivitamin Ac tive Flax Seed Oil Active Move Free Ultra [facility] Active SOCIAL HISTORY Tobacco Use: Social History Observation Description Date Details (start date - stop date) Never Smoker NA - NA Sex Assigned At : Social History Observation Description Sex Assigned At Unknown Tobacco Use/Smoking Question Answer Notes Patient is a nonsmoker Alcohol Screen Question Answer Notes Did you have a drink containing alcohol in the p ast year? No Points 0 Interpretation Negative VITAL SIGNS BMI 29.72 kg/m2 09/16/2023 Blood pressure systolic 000 mm Hg 09/16/20 23 Blood pressure diastolic 00 mm Hg 023 Height 65.25 in 09/16/2023 Temperature 97.3 degrees Fahrenheit 09/16/20 23 Weight 180 lbs 09/16/2023 Encounters Encounter Location Date Provider Diagnosis [facility] [address] [place] [address] 09/16/2023 Beni Angeles Jr Iron deficiency anemia, unspecified iron deficiency anemia type D50.9 ASSESSMENTS Encounter Date Diagnosis Assessment Notes Treatment Notes Treatment Clinical Notes 09/16/2023 Iron deficiency anemia, unspecified iron deficiency anemia type (ICD-10 - D50.9) PLAN OF TREATMENT Pending Test Test Name Order Date IRON + IBC (FE) 09/16/2023 FERRITIN 09/16/2023 CBC w/o DIFF 09/16/2023 Next Appt Details Follow Up: 1 Year, Reason: Provider Name:Beni mcghee Jr, 09/13/2025 01:15:00 PM, [address], [address], [place], [address],
--- OUTSIDE RECORDS SUMMARY | 2024-09-22 14:03 | XMS_ITS ---
Author Organization [facility] Address [address] [place] [id number] Care Team Providers Care Lemon Picker Name Role Phone SHAYAN Dailey Primary Care Provider Beni Grimes Jr Unavailable Clarissa Ramsey Unavailable Unavailable ALLERGIES No Known Allergies REASON FOR VISIT Patient presents today for anemia MEDICATIONS Medication SIG (Take, Route, Frequency, Duration) Notes Start Date End Date Status Move [facility] Advance - as directed Orally Active ZyrTEC Childrens Allergy 5 MG/5ML as directed Orally Active Aspirin Adult Low Dose 81 MG 1 tablet Or ally Once a day for 30 day(s) Active Valsartan 160 MG 1 tablet Orally twic e a day Active Toprol XL 100 MG 1 tablet Orally at night Active levETIRAcetam 500 MG 1 tablet Orally lita ry 12 hrs for 30 day(s) Active Mens Multivitamin Ac tive Vitamin C Active Vitamin D Active Flax Seed Oil Active Omeprazole 20 MG 1 Orally Once a day for 90 days 04/22/2022 Active Keppra Active Furosemide 20 MG 1 tablet Orally Once a day Active Allopurinol 300 MG 1 tablet Orally Once a day Active SOCIAL HISTORY Tobacco Use: Social History [...] W/U Status Risk SNOMED Code Notes Problem Anemia, unspecified type (D64.9) Active confirmed [id number] VITAL SIGNS BMI 28.90 kg/m2 09/14/2024 Blood pressure systolic 00 mm Hg 09/14/20 24 Blood pressure diastolic 00 mm Hg 024 Height 65.25 in 09/14/2024 Weight 175 lbs 09/14/2024 Encounters Encounter Location Date Provider Diagnosis [facility] [address] [place] [address] 09/14/2024 Beni Angeles Jr Erosive esophagitis K22.10 and Anemia, unspecified type D64.9 ASSESSMENTS Encounter Date Diagnosis Assessment Notes Treatment Notes Treatment Clinical Notes 09/14/2024 Erosive esophagitis (ICD-10 - K22.10) 09/14/2024 Anemia, unspecified type (ICD-10 - D64.9) PLAN OF TREATMENT Medication Medication Name Sig Start Date Stop Date Notes Omeprazole 20 MG 1 Orally Once a day for 90 days 2 Next Appt Details Follow Up: 1 Year, Reason: Provider Name:Beni mcghee Jr, 09/13/2025 01:15:00 PM, [address] [place] [address], [address], [place], [phone],
--- OUTSIDE RECORDS SUMMARY | 2024-09-22 14:03 | XMS_ITS ---
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 Name Role Phone SHAYAN Dailey Primary Care Provider Abhishek Angeles Jr, Beni Richard [phone] Clarissa Ramsey Unavailable Unavailable REASON FOR VISIT refill omeprazole MEDICATIONS Medication SIG (Take, Route, Fr equency, Duration) Notes Start Date End Date Status Omeprazole 20 MG 1 capsule 30 minutes before morning meal Orally twice a day for 30 days 04/22/2022 Active Encounters Encounter Location Date Provider Diagnosis [facility] [address] [facility] [address] [place] [phone] 09/12/2024 Beni Angeles Jr PLAN OF TREATMENT Medication Medication Name Sig Start Date Stop Date Notes Omeprazole 20 MG 1 capsule 30 minutes before morning meal Orally twice a day for 30 days 04/22/2022 Next Appt Details Provider Name:Beni mcghee Jr, 09/13/2025 01:15:00 PM, [address] [place] [address], [address], [place], [phone],
[2024-09-22] MEDS: cefTRIAXone sodium 1 GM VIAL IVPUSH (16:37)
[2024-09-22] MEDS: Clopidogrel Bisulfate 75 MG TABLET PO (16:37)
[2024-09-22] MEDS: 0.9 % Sodium Chloride Flush 3 ML SYRINGE IVFLUSH ×2 (16:37→19:42)
[2024-09-22] MEDS: Acetaminophen Supp 650 MG SUPP.RECT PR (17:13)
[2024-09-22] MEDS: levETIRAcetam 500 MG TABLET PO (19:42)
[2024-09-22] MEDS: Atorvastatin Calcium 40 MG TABLET PO (19:42)
[2024-09-23] VITALS (8 sets, daily range): BP systolic 101–148; BP diastolic 54–74; PULSE 62–82; RESP 14–20; TEMP 36.3–36.9; O2SAT 95–97
[2024-09-23] MEDS: Pantoprazole Sodium 20 MG TABLET.DR PO (06:13)
[2024-09-23 08:22] LABS: Anion Gap 16 (12-20); Blood Urea Nitrogen 25 mg/dL (9-16); Calcium 9.1 mg/dL (8.4-10.2); Carbon Dioxide 24 mmol/L (22-29); Chloride 103 mmol/L (96-108); Creatinine Clr Calc Pharmacy 36.1; Estimated Glomerular Filt Rate 52; Glucose Random 128 mg/dL (60-115); Magnesium 1.9 mg/dL (1.6-2.6); Potassium 3.7 mmol/L (3.3-5.1); Sodium 139 mmol/L (135-145)
[2024-09-23] MEDS: levETIRAcetam 500 MG TABLET PO ×2 (09:13→19:20)
[2024-09-23] MEDS: Aspirin Enteric Coated 81 MG TABLET.DR PO (09:13)
[2024-09-23] MEDS: Clopidogrel Bisulfate 75 MG TABLET PO (09:13)
[2024-09-23] MEDS: Ascorbic Acid 500 MG TABLET PO (09:13)
[2024-09-23] MEDS: allopurinoL 300 MG TABLET PO (09:13)
[2024-09-23] MEDS: Cholecalciferol (Vitamin D3) 10 MCG TABLET PO (09:13)
[2024-09-23] MEDS: Enoxaparin Sodium 40 MG/0.4 ML SYRINGE SUBCUT (09:14)
[2024-09-23] MEDS: 0.9 % Sodium Chloride Flush 3 ML SYRINGE IVFLUSH ×2 (09:14→19:21)
--- NOTE | 2024-09-23 10:24 | P.PNIM_ITS ---
Subjective Subjective Date of Service: 09/23/24 Interval History: aphasia slightly improved, tolerating pureed solids/nectar liquids R side weak, R facial droop Review of Systems Review of Systems: Yes all other systems are reviewed and are negative Physical Exam 2 Vital Signs: Vital Signs: Last Vital Signs Temp 97.7 F 09/23/24 08:00 Pulse 62 09/23/24 08:00 Resp 16 09/23/24 08:00 BP 148/72 H 09/23/24 08:00 Pulse Ox 97 09/23/24 08:00 O2 Del Method Room Air 09/23/24 08:00 BMI result Body Mass Index 27.0 Gen: in no acute distress HEENT: sclera anicteric, moist mucus membranes Neck: supple Lungs: clear to auscultation bilaterally Heart: iregular, no murmurs Abd: soft, non-tender, non-distended Ext: no edema Skin: warm/well-perfused Neuro: alert and oriented, expressive aphasia improved, R facial droop, dense R hemiparesis Psych: appropriate affect Objective Data Active Medications Acetaminophen (Acetaminophen 325 Mg Tablet) 650 mg PO Q6H PRN PRN Reason: Pain, Mild (Pain Scale 1-3), fever or headache Acetaminophen (Acetaminophen Supp 650 Mg Supp.Rect) 650 mg CA Q6H PRN PRN Reason: Fever Last Admin: 09/22/24 17:13 Dose: 650 mg Documented By: SELINA Allopurinol (Allopurinol 300 Mg Tablet) 300 mg PO DAILY [facility] Last Admin: 09/23/24 09:13 Dose: 300 mg Documented By: BARRY Ascorbic Acid (Ascorbic Acid 500 Mg Tablet) 500 mg PO DAILY [facility] Last Admin: 09/23/24 09:13 Dose: 500 mg Documented By: BARRY Aspirin (Aspirin Enteric Coated 81 Mg Tablet.) 81 mg PO DAILY [facility] Last Admin: 09/23/24 09:13 Dose: 81 mg Documented By: BARRY Atorvastatin Calcium (Atorvastatin Calcium 40 Mg Tablet) 40 mg PO BEDTIME [facility] Last Admin: 09/22/24 19:42 Dose: 40 mg Documented By: SUMMER Ceftriaxone Sodium (Ceftriaxone Sodium 1 Gm Vial) 1 gm IVPUSH Q24H [facility] Last Admin: 09/22/24 16:37 Dose: 1 gm Documented By: HENRESTO Clopidogrel Bisulfate (Clopidogrel Bisulfate 75 Mg Tablet) 75 mg PO DAILY [facility] Last Admin: 09/23/24 09:13 Dose: 75 mg Documented By: BARRY Enoxaparin Sodium (Enoxaparin Sodium 40 Mg/0.4 Ml Syringe) 40 mg SUBCUT Q24H [facility] Last Admin: 09/23/24 09:14 Dose: 40 mg Documented By: BRARY Furosemide (Furosemide 20 Mg Tablet) 20 mg PO DAILY [facility]; Protocol Last Admin: 09/22/24 11:45 Dose: Not Given Documented By: SELINA Non-Admin Reason: NPO Levetiracetam (Levetiracetam 500 Mg Tablet) 500 mg PO BID [facility] Last Admin: 09/23/24 09:13 Dose: 500 mg Documented By: BARRY Magnesium Hydroxide (Milk Of Magnesia 30 Ml Oral.Susp) 30 ml PO DAILY PRN PRN Reason: Constipation Metoprolol Succinate (Metoprolol Succinate Er 100 Mg Tab.Er.24h) 100 mg PO DAILY@1800 [facility]; Protocol Last Admin: 09/21/24 19:15 Dose: 100 mg Documented By: CLAUDETTE Ondansetron HCl (Ondansetron Hcl 4 Mg/2 Ml Vial) 4 mg IVPUSH Q8H PRN PRN Reason: Nausea and Vomiting Pantoprazole Sodium (Pantoprazole Sodium 20 Mg Tablet.Dr) 20 mg PO DAILY@0630 [facility] Last Admin: 09/23/24 06:13 Dose: 20 mg Documented By: DIANA Sodium Chloride (0.9 % Sodium Chloride Flush 3 Ml Syringe) 3 ml IVFLUSH QSHIFT [facility] Last Admin: 09/23/24 09:14 Dose: 3 ml Documented By: BARRY Vitamin D (Cholecalciferol (Vitamin D3) 10 Mcg Tablet) 10 mcg PO DAILY [facility] Last Admin: 09/23/24 09:13 Dose: 10 mcg Documented By: BARRY Labs 09/20/24 12:38 09/23/24 06:58 Labs: Laboratory Results - last 24 hr 09/22/24 09/23/24 10:48 06:58 Hold Purple Top SEE NOTE Anion Gap 10 L 16 Estim Creat Clear Calc 40.4 36.1 Estimated GFR 60 52 Random Glucose 133 H 128 H Calcium 8.6 D 9.1 Magnesium 1.4 L* 1.9 TTE 09/21/24: 1. Normal LV ejection fraction of 60 65% 2. At least mildly dilated left atrium 3. Mild aortic regurgitation 4. Upper limits of normal RV systolic pressure 5. 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 Normal LV ejection fraction of 60 65% 2. At least mildly dilated left atrium 3. Mild aortic regurgitation 4. Upper limits of normal RV systolic pressure 5. Mildly dilated ascending aorta at 3.8 cm hypoMg - repleted atrial fibrillation - not on AC due to hx GI bleed with anemia; has Watchman device. Per discussion with Neurology current stroke thought to be atherothrombotic rather than embolic so treatment is DAPT rather than OAC - continue metoprolol succinate after period of permissive hypertension UTI - ceftriaxone 09/20- to which the Klebsiella oxytoca is sensitive seizure disorder - levetiracetam HF unknown EF HTN - hold furosemide, valsartan, and metoprolol succinate to allow permissive hypertension SWATHI - CPAP at night gout - allopurinol VTE ppx - enoxaparin dispo - eventual AIR In my clinical judgment, the patient requires continued inpatient hospitalization for the following reasons: acute CVA in evolution Total time managing care of this patient today: 40 minutes. Quality Stroke Does the patient have a stroke diagnosis?: Yes Reason for No Anti-thrombotic by Day Two: Contraindicated (Last known well time yesterday -- outside of tNK window.) VTE Prior VTE?: No VTE Risk Level:: Medical - moderate - high VTE Device Contraindication: Treatment Not Indicated VTE Drug Contraindication: N/A - Med Ordered
--- NOTE | 2024-09-23 13:18 | ECG_ITS ---
Test Reason : CP Blood Pressure : / mmHG Vent. Rate : 077 BPM Atrial Rate : 000 BPM P-R Int : 000 ms QRS Dur : 090 ms QT Int : 382 ms P-R-T Axes : 000 -12 -09 degrees QTc Int : 432 ms Atrial fibrillation with a competing junctional pacemaker Septal infarct , age undetermined Abnormal ECG When compared with ECG of 20-SEP-2024 12:30, Septal infarct is now Present Referred By: Dl Martinez Electronically Signed By:KAPIL GOSS MD
[2024-09-23] MEDS: cefTRIAXone sodium 1 GM VIAL IVPUSH (14:55)
[2024-09-23] MEDS: Atorvastatin Calcium 40 MG TABLET PO (19:20)
[2024-09-23] MEDS: Milk of Magnesia 30 ML ORAL.SUSP PO (19:22)
[2024-09-24 04:00] VITALS: BP 127/58; PULSE 83; RESP 20; TEMP 36.9; O2SAT 95
[2024-09-24] MEDS: Pantoprazole Sodium 20 MG TABLET.DR PO (06:50)
[2024-09-24 07:14] VITALS: BP 117/64; PULSE 75; RESP 20; TEMP 36.6; O2SAT 92
[2024-09-24] MEDS: levETIRAcetam 500 MG TABLET PO (08:32)
[2024-09-24] MEDS: Ascorbic Acid 500 MG TABLET PO (08:32)
[2024-09-24] MEDS: Aspirin Enteric Coated 81 MG TABLET.DR PO (08:32)
[2024-09-24] MEDS: allopurinoL 300 MG TABLET PO (08:32)
[2024-09-24] MEDS: Clopidogrel Bisulfate 75 MG TABLET PO (08:32)
[2024-09-24] MEDS: Cholecalciferol (Vitamin D3) 10 MCG TABLET PO (08:33)
[2024-09-24] MEDS: Enoxaparin Sodium 40 MG/0.4 ML SYRINGE SUBCUT (08:33)
[2024-09-24] MEDS: 0.9 % Sodium Chloride Flush 3 ML SYRINGE IVFLUSH ×2 (08:34→15:30)
--- NOTE | 2024-09-24 10:46 | HO.PM.IMPN ---
Subjective Subjective Date of Service: 09/24/24 Interval History: R sided weakness difficulty speaking facial droop Review of Systems Review of Systems: Yes all other systems are reviewed and are negative Physical Exam Vital Signs: Vital Signs: Last Vital Signs Temp 97.9 F 09/24/24 07:14 Pulse 75 09/24/24 07:14 Resp 20 09/24/24 07:14 BP 117/64 09/24/24 07:14 Pulse Ox 92 09/24/24 07:14 O2 Del Method Room Air 09/24/24 07:14 BMI result Body Mass Index 27.0 Gen: in no acute distress HEENT: sclera anicteric, moist mucus membranes Neck: supple Lungs: clear to auscultation bilaterally Heart: iregular, no murmurs Abd: soft, non-tender, non-distended Ext: no edema Skin: warm/well-perfused Neuro: alert and oriented, expressive aphasia improved, R facial droop, dense R hemiparesis Psych: appropriate affect Objective Data Active Medications Acetaminophen (Acetaminophen 325 Mg Tablet) 650 mg PO Q6H PRN PRN Reason: Pain, Mild (Pain Scale 1-3), fever or headache Acetaminophen (Acetaminophen Supp 650 Mg Supp.Rect) 650 mg SC Q6H PRN PRN Reason: Fever Last Admin: 09/22/24 17:13 Dose: 650 mg Documented By: SELINA Allopurinol (Allopurinol 300 Mg Tablet) 300 mg PO DAILY [facility] Last Admin: 09/24/24 08:32 Dose: 300 mg Documented By: BARRY Ascorbic Acid (Ascorbic Acid 500 Mg Tablet) 500 mg PO DAILY [facility] Last Admin: 09/24/24 08:32 Dose: 500 mg Documented By: BARRY Aspirin (Aspirin Enteric Coated 81 Mg Tablet.) 81 mg PO DAILY [facility] Last Admin: 09/24/24 08:32 Dose: 81 mg Documented By: BARRY Atorvastatin Calcium (Atorvastatin Calcium 40 Mg Tablet) 40 mg PO BEDTIME [facility] Last Admin: 09/23/24 19:20 Dose: 40 mg Documented By: SUMMER Ceftriaxone Sodium (Ceftriaxone Sodium 1 Gm Vial) 1 gm IVPUSH Q24H [facility] Last Admin: 09/23/24 14:55 Dose: 1 gm Documented By: BARRY Clopidogrel Bisulfate (Clopidogrel Bisulfate 75 Mg Tablet) 75 mg PO DAILY [facility] Last Admin: 09/24/24 08:32 Dose: 75 mg Documented By: BARRY Enoxaparin Sodium (Enoxaparin Sodium 40 Mg/0.4 Ml Syringe) 40 mg SUBCUT Q24H [facility] Last Admin: 09/24/24 08:33 Dose: 40 mg Documented By: BARRY Furosemide (Furosemide 20 Mg Tablet) 20 mg PO DAILY [facility]; Protocol Last Admin: 09/22/24 11:45 Dose: Not Given Documented By: SELINA Non-Admin Reason: NPO Levetiracetam (Levetiracetam 500 Mg Tablet) 500 mg PO BID [facility] Last Admin: 09/24/24 08:32 Dose: 500 mg Documented By: BARRY Magnesium Hydroxide (Milk Of Magnesia 30 Ml Oral.Susp) 30 ml PO DAILY PRN PRN Reason: Constipation Last Admin: 09/23/24 19:22 Dose: 30 ml Documented By: SUMMER Comments: pt requested as been a while since last bm Metoprolol Succinate (Metoprolol Succinate Er 100 Mg Tab.Er.24h) 100 mg PO DAILY@1800 [facility]; Protocol Last Admin: 09/21/24 19:15 Dose: 100 mg Documented By: CLAUDETTE Ondansetron HCl (Ondansetron Hcl 4 Mg/2 Ml Vial) 4 mg IVPUSH Q8H PRN PRN Reason: Nausea and Vomiting Pantoprazole Sodium (Pantoprazole Sodium 20 Mg Tablet.Dr) 20 mg PO DAILY@0630 [facility] Last Admin: 09/24/24 06:50 Dose: 20 mg Documented By: NICOLE Sodium Chloride (0.9 % Sodium Chloride Flush 3 Ml Syringe) 3 ml IVFLUSH QSHIFT [facility] Last Admin: 09/24/24 08:34 Dose: 3 ml Documented By: BARRY Vitamin D (Cholecalciferol (Vitamin D3) 10 Mcg Tablet) 10 mcg PO DAILY [facility] Last Admin: 09/24/24 08:33 Dose: 10 mcg Documented By: BARRY Labs 09/20/24 12:38 09/23/24 06:58 Microbiology Microbiology Results: Microbiology 09/20/24 Unknown Urine Culture - Final Urine clean catch - Clean Catch Midstream Klebsiella oxytoca Assessment and Plan (1) Acute CVA (cerebrovascular accident): Status: Acute Plan d5 89yo M with AF s/p Watchman, HTN, CHF unknown EF, seizure disorder, SWATHI on CPAP presenting after R-sided facial droop, RLE weakness which have resolved; 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 Normal LV ejection fraction of 60 65% 2. At least mildly dilated left atrium 3. Mild aortic regurgitation 4. Upper limits of normal RV systolic pressure 5. Mildly dilated ascending aorta at 3.8 cm hypoMg - repleted atrial fibrillation - not on AC due to hx GI bleed with anemia; has Watchman device. Per discussion with Neurology current stroke thought to be atherothrombotic rather than embolic so treatment is DAPT rather than OAC - continue metoprolol succinate after period of permissive hypertension UTI - ceftriaxone 09/20- to which the Klebsiella oxytoca is sensitive seizure disorder - levetiracetam HF unknown EF HTN - hold furosemide, valsartan, and metoprolol succinate to allow permissive hypertension SWATHI - CPAP at night gout - allopurinol VTE ppx - enoxaparin dispo - AIR In my clinical judgment, the patient requires continued inpatient hospitalization for the following reasons: AIR placement Total time managing care of this patient today: 40 minutes. Quality Stroke Does the patient have a stroke diagnosis?: Yes Reason for No Anti-thrombotic by Day Two: Contraindicated (Last known well time yesterday -- outside of tNK window.) VTE Prior VTE?: No VTE Risk Level:: Medical - moderate - high VTE Device Contraindication: Treatment Not Indicated VTE Drug Contraindication: N/A - Med Ordered
--- NOTE | 2024-09-24 10:55 | MHC.CM.PN ---
CM spoke to pt and family, they have decided that [facility] acute rehab is their first choice now, updated clinical reports sent to [facility].
[2024-09-24 11:24] VITALS: BP 155/67; PULSE 86; RESP 20; TEMP 36.9; O2SAT 95
[2024-09-24 12:09] LABS: Anion Gap 16 (12-20); Blood Urea Nitrogen 29 mg/dL (9-16); Calcium 9.5 mg/dL (8.4-10.2); Carbon Dioxide 27 mmol/L (22-29); Chloride 105 mmol/L (96-108); Creatinine Clr Calc Pharmacy 41.9; Estimated Glomerular Filt Rate > 60; Glucose Random 145 mg/dL (60-115); Sodium 144 mmol/L (135-145)
--- NOTE | 2024-09-24 12:46 | ECG_ITS ---
Test Reason : AFV Blood Pressure : / mmHG Vent. Rate : 066 BPM Atrial Rate : 000 BPM P-R Int : 000 ms QRS Dur : 088 ms QT Int : 402 ms P-R-T Axes : 000 006 -44 degrees QTc Int : 421 ms Atrial fibrillation Septal infarct (cited on or before 23-SEP-2024) Abnormal ECG When compared with ECG of 23-SEP-2024 13:18, No significant changes seen Referred By: Dl Martinez Electronically Signed By:KARLENE PERAZA
--- NOTE | 2024-09-24 13:41 | MHC.CM.PN ---
Second IMM 09/24/24, Pt has been medically cleared, he will go to [facility] today via BLS.
--- NOTE | 2024-09-24 14:30 | P.DS_ITS ---
DS: Providers Provider Date of Service: 09/24/24 Date of admission: 09/20/24 15:18 Date of discharge: 09/24/24 Primary care physician: Ramsey Romo MD Consults: 09/20/24 15:16 Consult to Neurology Routine Consulting Provider: [facility] Reason for consultation: Right sided deficits, moments of unresponsiveness x4, ?CVA vs seizure 09/22/24 09:49 Consult to Neurology Routine Consulting Provider: [facility] Reason for consultation: stroke in evolution + new thalamic stroke 09/22/24 10:32 Consult to Cardiology Routine Consulting Provider: [facility] Reason for consultation: NSVT DS: Diagnosis Discharge Diagnosis (1) Acute CVA (cerebrovascular accident): Status: Acute (2) UTI (urinary tract infection): Status: Acute (3) Afib: Status: Acute (4) Hypomagnesemia: Status: Resolved (5) NSVT (nonsustained ventricular tachycardia): Status: Acute DS: Summary Hospital Course Hospital Course: From the history and physical by the admitting hospitalist, GALILEA Parnell, 09/20/24: Pt is an 89-year-old male with a PMH significant for?HTN, CHF, seizure disorder, SWATHI on CPAP, and gout who presents to the ED with?ataxia, right-sided facial droop, and difficulty speaking. Patient's family is at bedside who helps supplement HPI. Patient's symptoms began last night when family noted he was having difficulty walking and dragging his right leg. Pt has been experiencing right knee pain for some time now, and family initially did not think anything of it. However this morning when patient awoke he was noted to have a ?glassy? look in his eyes and was mumbling incoherently, having difficulty word finding, and noted to have right-sided facial droop and right-sided weakness. By the time EMS arrived patient had recovered and was speaking and mentating back to baseline. Upon arrival to the ED, nursing notes that patient had 3 additional similar episodes of unresponsiveness and mumbling. Episodes would last approximately 5 minutes before patient would began speaking and mentating as before, though with some residual right-sided weakness afterwards. Currently patient only complains of difficulty seeing out of his left eye where things appear ?blurry?. No previous history of stroke or hyperlipidemia. Of note, patient previously on Eliquis due to AFib, but was transitioned to Watchman device after developing GI bleed. In the ED pt was initially hypertensive up to 170/88, vitals otherwise stable WNL. Labs were grossly unremarkable and around baseline for patient. No leukocytosis. Stable normocytic anemia of 13.4/38.5. No significant electrolyte abnormalities. Renal function baseline. Hepatic function WNL. Troponin 5.0. BNP mildly elevated at 215, around baseline. UA likely positive for UTI with large amount of leukocyte esterase with wbc's greater than 50 and 4+ bacteria. MRI of head/brain found subtle acute infarct involving the left mid brain medially for global cerebral atrophy and chronic microangiopathy. CXR showed chronic interstitial lung disease though mild interstitial lung edema can not be excluded. CT?of head negative for acute intracranial hemorrhage or territorial infarction, though showed chronic microangiopathy and generalized cerebral volume loss. CTA of head and neck showed no large vessel occlusion, saccular aneurysm, dissection, or stenosis. EKG demonstrated atrial fibrillation with slow ventricular response of 56 and nonspecific T-wave abnormalities in lateral leads. Pt was treated with aspirin and Plavix. Pt will be admitted to the hospital for treatment and further evaluation of acute left midbrain CVA. 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 He was admitted to the telemetry unit. Hospital course by problem: acute CVA - He presented out of tPA window. Unfortunately he developed stuttering symptoms that progressed to aphasia, R facial droop, and R hemiparesis. 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 Also placed on high-intensity atorvastatin for secondary prevention. Fever treated with APAP. Permissive hypertension allowed and as such, valsartan discontinued. Seen by PT/OT/[employer]ENS[employer] and acute inpatient rehabilitation recommended. Per [employer], NDD1 solids and nectar-thick liquids for now. Recommend Neurology follow-up in 2-3 weeks. NSVT - 9 beats on telemetry; repleted Mg and did not recur after repletion - TTE 09/21/24: 1. Normal LV ejection fraction of 60 65% 2. At least mildly dilated left atrium 3. Mild aortic regurgitation 4. Upper limits of normal RV systolic pressure 5. Mildly dilated ascending aorta at 3.8 cm hypoMg - Repleted atrial fibrillation - He is not on AC due to hx GI bleed with anemia, for which he has Watchman device. Per discussion with Neurology and Cardiology, current stroke thought to be atherothrombotic rather than embolic so treatment is DAPT rather than full- dose anticoagulation. Rate-controlled on metoprolol succinate [initially held to allow permissive hypertension]. UTI - Treated with ceftriaxone 09/20-09/24, found to have to Klebsiella oxytoca, and discharged on 3 days of cefuroxime. Time Attestation Discharge Coordination Time (in mins): 45 Quality: Safe Use of Opioids Does Pt have an Active Cancer Diagnosis on the Problem List?: No Quality: Stroke Does the patient have a stroke diagnosis?: No Physical Exam Vital Signs: Vital Signs: Last Vital Signs Temp 98.4 F 09/24/24 11:24 Pulse 86 09/24/24 11:24 Resp 20 09/24/24 11:24 BP 155/67 H 09/24/24 11:24 Pulse Ox 95 09/24/24 11:24 O2 Del Method Room Air 09/24/24 11:24 BMI result Body Mass Index 27.0 Gen: in no acute distress HEENT: sclera anicteric, moist mucus membranes Neck: supple Lungs: clear to auscultation bilaterally Heart: iregular, no murmurs Abd: soft, non-tender, non-distended Ext: no edema Skin: warm/well-perfused Neuro: alert and oriented, expressive aphasia slightly improved from yesterday, R facial droop, dense R hemiparesis Psych: appropriate affect DS: Data Data Completed and Pending Completed studies during hospitalization [Text1]: Laboratory Results WBC 8.8 X10*3/uL (4.8-10.8) 09/20/24 12:38 RBC 4.40 X10*6/uL (4.60-5.80) L 09/20/24 12:38 Hgb 13.4 g/dl (14.0-18.0) L D 09/20/24 12:38 Hct 38.5 % (42.0-52.0) L 09/20/24 12:38 MCV 87.5 fL (80.0-98.0) 09/20/24 12:38 MCH 30.5 pg (27.0-33.0) 09/20/24 12:38 MCHC 34.8 g/dl (31.0-36.0) 09/20/24 12:38 RDW 14.3 % (11.0-16.0) 09/20/24 12:38 Plt Count 191 X10*3/uL (160-400) 09/20/24 12:38 MPV 9.0 fL (9.4-12.4) L 09/20/24 12:38 Immature Gran % (Auto) 0.3 % (0.0-0.4) 09/20/24 12:38 Neut % (Auto) 63.4 % (45-73) 09/20/24 12:38 Lymph % (Auto) 26.7 % (20-40) 09/20/24 12:38 Major % (Auto) 5.8 % (2-11) 09/20/24 12:38 Eos % (Auto) 3.3 % (0-4) 09/20/24 12:38 Baso % (Auto) 0.5 % (0-2) 09/20/24 12:38 Lymph # (Auto) 2.3 X10*3/uL (1.2-4.9) 09/20/24 12:38 Major # (Auto) 0.5 X10*3/uL (0.1-1.2) 09/20/24 12:38 Eos # (Auto) 0.3 X10*3/uL (0.0-0.4) 09/20/24 12:38 Baso # (Auto) 0.0 X10*3/uL (0.0-0.2) 09/20/24 12:38 Abs Immat Gran (auto) 0.03 X10*3/uL (0.00-0.03) 09/20/24 12:38 Absolute Neuts (auto) 5.5 x10*3/uL (2.0-8.3) 09/20/24 12:38 Absolute Nucleated RBC 0.000 X10*3/uL (0.0-0.012) 09/20/24 12:38 Nucleated RBC % (auto) 0.0 /100WBC (0.0-0.2) 09/20/24 12:38 Hold Purple Top SEE NOTE 09/23/24 06:58 PT 12.1 SEC (10.9-12.4) 09/20/24 12:38 Whole Blood PT 12.3 sec (11.1-13.5) 09/20/24 12:15 INR 1.0 (0.9-1.1) 09/20/24 12:38 Whole Blood INR 1.0 (0.9-1.1) 09/20/24 12:15 Sodium 144 mmol/L (135-145) 09/24/24 11:46 Potassium 4.0 mmol/L (3.3-5.1) 09/24/24 11:46 Chloride 105 mmol/L (96-108) 09/24/24 11:46 Carbon Dioxide 27 mmol/L (22-29) 09/24/24 11:46 Anion Gap 16 (12-20) 09/24/24 11:46 BUN 29 mg/dL (9-16) H 09/24/24 11:46 Creatinine 1.12 mg/dL (0.5-1.4) 09/24/24 11:46 Estim Creat Clear Calc 41.9 09/24/24 11:46 Estimated GFR > 60 09/24/24 11:46 POC Glucose 129 mg/dL (60-115) H 09/20/24 12:14 Random Glucose 145 mg/dL (60-115) H 09/24/24 11:46 Estimat Average Glucose 134 mg/dL 09/20/24 12:38 Hemoglobin A1c % 6.3 % (<6.0) H 09/20/24 12:38 Calcium 9.5 mg/dL (8.4-10.2) 09/24/24 11:46 Magnesium 1.9 mg/dL (1.6-2.6) 09/23/24 06:58 Total Bilirubin 0.7 mg/dL (0.0-1.0) 09/20/24 12:38 Direct Bilirubin 0.2 mg/dL (0.0-0.5) 09/20/24 12:38 AST 20 U/L (5-37) 09/20/24 12:38 ALT 14 U/L (0-40) 09/20/24 12:38 Alkaline Phosphatase 58 U/L (39-117) 09/20/24 12:38 Troponin I High Sens 5.0 ng/L (<3.5-35.0) 09/20/24 12:38 B-Natriuretic Peptide 215 pg/mL (<100) H 09/20/24 12:38 Total Protein 6.9 g/dL (6.5-8.0) 09/20/24 12:38 Albumin 4.1 g/dL (3.5-5.0) 09/20/24 12:38 Triglycerides 213 mg/dL (<150) H 09/20/24 12:38 Cholesterol 171 mg/dL (<200) 09/20/24 12:38 LDL Cholesterol, Calc 90 mg/dL (<100) 09/20/24 12:38 HDL Cholesterol 39 mg/dL (>40) L 09/20/24 12:38 Lipase 34 U/L (8-78) 09/20/24 12:38 Urine Color Yellow 09/20/24 12:47 Urine Appearance Cloudy 09/20/24 12:47 Urine pH 7.5 (5.0-9.0) 09/20/24 12:47 Ur Specific Cal[place]oun <= 1.005 (1.005-1.025) 09/20/24 12:47 Urine Protein 30 (1+) mg/dL (Neg-Trace) H 09/20/24 12:47 Urine Glucose (UA) Negative mg/dL (Negative) 09/20/24 12:47 Urine Ketones Negative mg/dL (Negative) 09/20/24 12:47 Urine Blood Small (1+) (Negative) H 09/20/24 12:47 Urine Nitrite Negative (Negative) 09/20/24 12:47 Ur Leukocyte Esterase Large (3+) (Negative) H 09/20/24 12:47 Urine RBC 6-10 /HPF (0-2) H 09/20/24 12:47 Urine WBC >50 /HPF (0-5) H 09/20/24 12:47 Ur Squamous Epith Cells 0-2 /HPF (0-2) 09/20/24 12:47 Urine Bacteria 4+ (None Seen) 09/20/24 12:47 Hyaline Casts 0-2 /LPF (0-2) 09/20/24 12:47 Influenza Type A (PCR) NEGATIVE (Negative) 09/20/24 12:47 Influenza Type B (PCR) NEGATIVE (Negative) 09/20/24 12:47 RSV RNA Qual (PCR) NEGATIVE (Negative) 09/20/24 12:47 SARS-CoV-2 RNA (RT-PCR) NEGATIVE (Negative) 09/20/24 12:47 Impressions Chest X-Ray 09/20/24 12:18 IMPRESSION: Chronic interstitial lung disease. Mild interstitial lung edema cannot be excluded. Elevated left hemidiaphragm, nonspecific. Electronically signed by: Atif Avalos MD 09/20/2024 02:40 PM EST RP Brain MRI 09/20/24 15:05 IMPRESSION: 1. Subtle acute infarct involving the left midbrain medially. No acute intracranial hemorrhage. 2. Global cerebral atrophy and chronic microangiopathy. Electronically signed by: Berny Knapp MD 09/20/2024 03:55 PM EST RP Head CT 09/22/24 09:03 IMPRESSION: 1. Hypodensity in the left midbrain likely corresponds with progression and mild edema of small acute infarct previously seen on brain MR. There is also asymmetric heterogeneous hypodensity in the left thalamus which is new from prior and could represent acute infarction. If clinically indicated, consider MRI for further assessment. 2. No acute intracranial hemorrhage. After telephone disconnection and multiple pages, these results were discussed with Dl Martinez MD by telephone on 09/22/2024 at 9:38 AM and it was ascertained that the content of the report was understood at the time of direct communication. Electronically signed by: Maggy Logan DO 09/22/2024 09:42 AM EST RP Head/Neck CTA 09/22/24 09:05 IMPRESSION: 1. Unchanged age related cerebral atrophy and ventriculomegaly. 2. Unchanged subacute medial left midbrain cerebral infarction and more extensive lateral left cerebral peduncle acute infarction, not evident on CT scan and MRI of brain on 09/20/2024, compatible with progression of acute brainstem infarction. 3. Unchanged, No intracranial hemorrhage or skull fracture is seen. 3. No evidence of space occupying or enhancing intracranial mass lesion could be found. EXAMINATION: CT angiogram of brain. CLINICAL INFORMATION: Cerebral vascular disease. Right-sided flaccid paralysis, aphasia. COMPARISON: CT angiogram of head and neck on 09/20/2024 TECHNIQUE: CT angiogram of the brain was performed C7 following the administration of 70 mL of Omnipaque 350. Coronal and sagittal images were reconstructed from axial image data. 3-dimensional volumetric maximum intensity projection images in multiple planes were reconstructed on an independent workstation. This was performed under concurrent direct supervision and monitoring by radiologist. Reformatted maximum intensity projection angiographic images of the brain were reconstructed on an independent workstation. This CT examination was performed using dose optimization techniques as appropriate, variously including the following: *Automated exposure control *Adjustment of mA and/or kV according to patient size (this includes techniques or standardized protocols for targeted exams where dose is matched to indication/reason for exam; i.e. extremities or head) *Use of iterative reconstruction technique DLP: 1594 mGy-cm FINDINGS: There is normal visualization of bilateral anterior, middle and posterior cerebral arteries, internal carotid arteries, basilar artery and terminal portions of bilateral vertebral arteries. Anterior communicating artery is normal. Bilateral posterior communicating arteries are normal. Bilateral internal carotid siphons are smoothly patent. Extensive tram track shape atherosclerotic calcifications are seen in bilateral internal carotid siphons without causing hemodynamically significant stenosis. Timing of the bolus allows assessment of the major dural venous sinuses. The major cerebral venous sinuses show normal contrast filling. IMPRESSION: 1. Unchanged bilateral internal carotid siphon extensive atherosclerotic calcifications without hemodynamically significant stenosis. 2. No focal cerebral arterial lesion or significant arterial stenosis is seen. EXAMINATION: CT angiogram of neck. CLINICAL INFORMATION: Cerebral vascular disease, Right-sided flaccid paralysis, aphasia. COMPARISON: CT angiogram of head and neck on 09/20/2024 TECHNIQUE: Contrast enhanced CT angiogram of the neck and superior mediastinum was performed following the administration of 70 mL of Omnipaque 350. 3-dimensional volumetric maximum intensity projection images in multiple planes were reconstructed on an independent workstation. This was performed under concurrent direct supervision and monitoring by radiologist. Reformatted maximum intensity projection angiographic images of the neck and superior mediastinum were reconstructed on an independent workstation. Magnified images of carotid bifurcations were reconstructed. This CT examination was performed using dose optimization techniques as appropriate, variously including the following: *Automated exposure control *Adjustment of mA and/or kV according to patient size (this includes techniques or standardized protocols for targeted exams where dose is matched to indication/reason for exam; i.e. extremities or head) *Use of iterative reconstruction technique DLP: 1594 mGy-cm STENOSIS MEASUREMENT: Degree of stenosis was measured and calculated based on NASCET criteria. Carotid stenosis reference using NASCET criteria: % stenosis = (1 - narrowest ICA diameter/diameter of distal cervical ICA) x 100. Mild - < 50% stenosis. Moderate - 50-69% stenosis. Severe - 70-94% stenosis. Near occlusion - 95-99% stenosis. Occluded - 100% stenosis. FINDINGS: RIGHT SIDE: Right internal carotid artery: Extensive large atherosclerotic calcifications are seen at the origin and bulb and proximal right internal carotid artery causing up to 56.9% stenosis in the right internal carotid bulb.. Right external carotid artery: Smoothly patent. Right common carotid artery: Smoothly patent. Extensive calcified atherosclerotic plaques are seen at bifurcation without causing hemodynamically significant stenosis. Right vertebral artery: Smoothly patent. LEFT SIDE: Left internal carotid artery: Smoothly patent. Extensive atherosclerotic calcifications are seen at origin and bulb of left internal carotid artery without causing hemodynamically significant stenosis. Left external carotid artery: Smoothly patent. Large calcified atherosclerotic plaques are present at the origin without causing hemodynamically significant stenosis. Left common carotid artery: Smoothly patent. Scattered atherosclerotic calcifications are present extending to the bifurcation without causing hemodynamically significant stenosis. Left vertebral artery: Smoothly patent and dominant. At the superior mediastinum, the visualized right innominate artery, bilateral subclavian arteries and common carotid arteries are smoothly patent starting from the origin at the aortic arch. A bovine arch is present with the right innominate artery and the left common carotid artery sharing a common origin from the aortic arch. Extensive scattered calcified atherosclerotic plaques are seen in the major arteries and aortic arch without causing hemodynamically significant stenosis. Multilevel advanced cervical spondylosis including advanced C4-C5 to C6-C7 degenerative cervical disc disease is seen. IMPRESSION: 1. Unchanged extensive bilateral common carotid and internal carotid arteries atherosclerotic calcifications. Unchanged moderate proximal right internal carotid artery stenosis. No evidence of significant left carotid stenosis. 2. Unchanged, Patent bilateral vertebral arteries with left-sided dominance. Electronically signed by: Carolann Chacon MD 09/22/2024 10:26 AM EST Discharge Plan Discharge Anticipated Discharge Date/Time: 09/24/24 14:26 Patient Disposition: Xfer Inpatient Rehab Fac Discharge Diagnosis: acute stroke UTI [facility]: [facility] [Outside] - 1 Week Kerry Merchant MD [Physician] - 2 Weeks Ramsey Romo MD [Primary Care Provider] - 1 Week Discharge Medications: New atorvastatin 40 mg Tablet 40 mg PO BEDTIME Qty: 1 0RF clopidogrel 75 mg Tablet 75 mg PO DAILY Qty: 1 0RF cefuroxime axetil 250 mg tablet 250 mg PO BID Qty: 6 0RF Continued multivitamin Tablet 1 tab PO DAILY cetirizine [Zyrtec] 10 mg Tablet 10 mg PO DAILY levetiracetam 500 mg Tablet 500 mg PO BID metoprolol succinate 100 mg Tablet Extended Release 24 Hr 100 mg PO DAILY@1800 aspirin 81 mg Tablet,Delayed Release (Dr/Ec) 81 mg PO DAILY ascorbic acid (vitamin C) [Vitamin C] 500 mg Tablet 500 mg PO DAILY lidocaine [Lidoderm] 5 % Adhesive Patch,Medicated 1 patch TOPICAL DAILY PRN (Reason: Pain) Rx Instructions: leave on most painful area for up to 12 hrs allopurinol 300 mg Tablet 300 mg PO DAILY furosemide 20 mg Tablet 20 mg PO DAILY cholecalciferol (vitamin D3) [Vitamin D3] 10 mcg (400 unit) Tablet 10 mcg PO DAILY omeprazole 20 mg Tablet,Delayed Release (Dr/Ec) 20 mg PO DAILY Lubricant Eye 57.3-42.5 % Ointment 1 appl OPHTHALMIC (EYE) BEDTIME Discontinued valsartan 160 mg Tablet 160 mg PO BID Discharge Orders: Discharge Order (Routine); Ordered 09/24/24 Ordered By: Dl Martinez Diet: NDD1 solids/nectac liquid Activity on Discharge: As tolerated Stand Alone Forms: Patient Portal Discharge page Print Language: Vietnamese Care Plan Goals: stroke recovery Health Concerns: acute stroke UTI Plan of Treatment: continue aspirin 81 mg daily and ADD clopidogrel 75 mg daily inpatient PT, OT, and speech therapy diet for now: pureed solids, nectar-thick liquids HOLD valsartan; resume at lower dose if BP rises to greater than 130 follow up with [facility] in [facility]3 weeks cefuroxime 250 mg twice daily for 3 days Please follow up with your primary care doctor within 1 week of discharge from rehab. Return to the hospital if you experience recurrent or worsening symptoms. Assessment: See Discharge Summary.
[2024-09-24] MEDS: cefTRIAXone sodium 1 GM VIAL IVPUSH (15:30)
[2024-09-24 15:48] VITALS: BP 135/65; PULSE 78; RESP 16; TEMP 37.1; O2SAT 95
[2024-09-24 19:39] VITALS: BP 133/77; PULSE 82; RESP 16; TEMP 36.8; O2SAT 94
--- NOTE | 2024-09-24 19:40 | PC.NURSE ---
1929 EMS came to transport patient to [facility]. Family member at bedside and aware of plan, family will bring CPAP machine over to [facility]. Pt alert, oriented and speech has improved from yesterday. Patient smiling and verbalizes readiness for discharge. Per patient request , Urinary Condom cath in place as patient worries about incontinence. EMS aware patient has urinary condom cath in place and reports will enform the staff at [facility]. Pt passing clear yellow urine. VSS.
== END 2024-09-24 19:45 | DRG 65 ==
LOC: HO.ED 14:33 → HO.EDOVER 15:35 → HO.IMC 09-21 05:03
PROVIDERS: Admitting Provider Student in an Organized Health Care Education/Training Program; Emergency Provider Emergency Medicine; PCP Internal Medicine; Visit Provider Family Medicine
DX: I63.9 Cerebral infarction, unspecified (principal); I47.20 Ventricular tachycardia, unspecified; I48.19 Other persistent atrial fibrillation; N39.0 Urinary tract infection, site not specified; R29.810 Facial weakness; I11.0 Hypertensive heart disease with heart failure; M10.9 Gout, unspecified; I50.9 Heart failure, unspecified; B96.89 Other specified bacterial agents as the cause of diseases classified elsewhere; E83.42 Hypomagnesemia; G47.33 Obstructive sleep apnea (adult) (pediatric); D64.9 Anemia, unspecified; G83.11 Monoplegia of lower limb affecting right dominant side; R29.700 NIHSS score 0; R47.81 Slurred speech; G40.909 Epilepsy, unspecified, not intractable, without status epilepticus; Z20.822 Contact with and (suspected) exposure to COVID-19; Z79.82 Long term (current) use of aspirin; Z79.899 Other long term (current) drug therapy
CPT/HCPCS: 0241U; 36415; 70450; 70496; 70498; 70551; 71045; 80048; 80061; 80076; 81001; 82947; 83036; 83690; 83735; 83880; 84484; 85025; 85610; 87086; 87186; 92610; 93005; 93306; 97110; 97162; 97166; 97530; 99285; J0696; J1650; J1953; J3475; Q9957; Q9967

== ENCOUNTER → 2024-09-20 12:18 | Outpatient (BNV) | payer MEDICARE, OTHER, SELFPAY | PROVIDERS: Emergency Provider Emergency Medicine; Visit Provider Internal Medicine Cardiovascular Disease | DX: I63.9 Cerebral infarction, unspecified (principal); I48.91 Unspecified atrial fibrillation; R94.31 Abnormal electrocardiogram [ECG] [EKG] | CPT/HCPCS: 93010 ==

== ENCOUNTER → 2024-09-20 12:18 | Outpatient (BNV) | payer MEDICARE, OTHER, SELFPAY | PROVIDERS: Emergency Provider Emergency Medicine; Visit Provider Radiology Diagnostic Radiology | DX: J70.3 Chronic drug-induced interstitial lung disorders (principal); I63.9 Cerebral infarction, unspecified | CPT/HCPCS: 71045 ==

== ENCOUNTER 2024-09-20 15:18 | Outpatient (BNV) | payer MEDICARE, OTHER, SELFPAY | END 2024-09-24 12:46 | PROVIDERS: Admitting Provider Student in an Organized Health Care Education/Training Program; Emergency Provider Emergency Medicine; PCP Internal Medicine; Visit Provider Internal Medicine | DX: I48.91 Unspecified atrial fibrillation (principal); R94.31 Abnormal electrocardiogram [ECG] [EKG] | CPT/HCPCS: 93010 ==

== ENCOUNTER 2024-09-20 15:18 | Outpatient (BNV) | payer MEDICARE, OTHER, SELFPAY | END 2024-09-23 13:18 | PROVIDERS: Admitting Provider Student in an Organized Health Care Education/Training Program; Emergency Provider Emergency Medicine; PCP Internal Medicine; Visit Provider Internal Medicine Cardiovascular Disease | DX: I48.91 Unspecified atrial fibrillation (principal); R94.31 Abnormal electrocardiogram [ECG] [EKG] | CPT/HCPCS: 93010 ==

== ENCOUNTER 2024-09-20 15:18 | Outpatient (BNV) | payer MEDICARE, OTHER, SELFPAY | END 2024-09-21 07:00 | PROVIDERS: Admitting Provider Student in an Organized Health Care Education/Training Program; Emergency Provider Emergency Medicine; Visit Provider Internal Medicine Cardiovascular Disease | DX: I35.1 Nonrheumatic aortic (valve) insufficiency (principal); I36.1 Nonrheumatic tricuspid (valve) insufficiency | CPT/HCPCS: 93306 ==

== ENCOUNTER → 2024-09-20 15:18 | Outpatient (BNV) | payer MEDICARE, OTHER, SELFPAY | PROVIDERS: Admitting Provider Student in an Organized Health Care Education/Training Program; Emergency Provider Emergency Medicine; Visit Provider Student in an Organized Health Care Education/Training Program | DX: I63.9 Cerebral infarction, unspecified (principal) | CPT/HCPCS: 99223; 99232; 99233; 99239; 99499 ==

== ENCOUNTER → 2024-09-20 15:18 | Outpatient (BNV) | payer MEDICARE, OTHER, SELFPAY | PROVIDERS: Admitting Provider Student in an Organized Health Care Education/Training Program; Emergency Provider Emergency Medicine; PCP Internal Medicine; Visit Provider Internal Medicine Cardiovascular Disease | DX: I63.9 Cerebral infarction, unspecified (principal); I48.91 Unspecified atrial fibrillation | CPT/HCPCS: 99222 ==

== ENCOUNTER → 2024-09-20 15:18 | Outpatient (BNV) | payer MEDICARE, OTHER, SELFPAY | PROVIDERS: Admitting Provider Student in an Organized Health Care Education/Training Program; Emergency Provider Emergency Medicine; Visit Provider Psychiatry & Neurology Neurology | DX: I63.412 Cerebral infarction due to embolism of left middle cerebral artery (principal) | CPT/HCPCS: 99222; 99232 ==